=== PATIENT | male | born 1950 | race African-American/Black ===

== ENCOUNTER 2021-04-21 10:17 | Inpatient (IN) | payer MEDICARE, OTHER, SELFPAY ==
[2021-04-21] VITALS (10 sets, daily range): BP systolic 105–127; BP diastolic 53–65; PULSE 70–105; RESP 16–22; TEMP 35.8–37.3; O2SAT 91–100
--- NOTE | ~2021-04-21 | XR_ITS ---
EXAMINATION: XR abdomen/kub 1V DATE: 04/25/2021 14:59 INDICATION: Abdominal distention. TECHNIQUE: A supine view of the abdomen was obtained. COMPARISON: None. FINDINGS: There is gaseous distention of the colon. There are multiple dilated loops of small bowel. IMPRESSION: 1. Dilated small and large bowel, consistent with adynamic ileus versus distal obstruction. Reviewed, dictated and finalized at location A.
--- NOTE | ~2021-04-21 | XR_ITS ---
EXAMINATION: XR abdomen obstructive series DATE: 05/01/2021 06:07 INDICATION: Follow-up dilated small bowel. TECHNIQUE: Frontal supine and upright views of the abdomen were obtained. COMPARISON: CT dated 04/27/2021 and radiographs dated 04/30/2021 FINDINGS: Nasogastric tube tip in proximal side port in the body of the stomach. Midline skin thomas at the lo wer abdomen consistent with recent surgery. Free intraperitoneal which is best appreciated below the right hemidiaphragm with additional scattered Rigler's sign. There are dilated loops of bowel which a ppear primarily colonic and contains some residual oral contrast material which extends to the disten ded rectum. No definitive dilated loops of small bowel to suggest obstruction. Skin folds project ove r the bilateral lungs. Heart size is normal. IMPRESSION: 1. Residual free intraperitoneal gas which may be related to recent surgery. 2. Persistent gas and contrast distended colon which extends to the rectum consistent with ileus. Reviewed, dictated and finalized at location A. IMPRESSION: 1. Residual free intraperitoneal gas which may be related to recent surgery. 2. Persistent gas and contrast distended colon which extends to the rectum cons istent with ileus.
--- NOTE | ~2021-04-21 | XR_ITS ---
EXAMINATION: XR abdomen/kub 1V INDICATION: Dilated small bowel status post oversewing of perforated gastric ulcer on 04/27/2021 TECHNIQUE: Supine views of the abdomen were obtained on 2 radiographs. COMPARISON: KUB from today FINDINGS: Contrast from earlier upper GI is seen in the rectum. A persistently dilated loop of small bowel is noted in the right upper quadrant. No definite extravasation of contrast is identified altho ugh overlapping loops of bowel decreased sensitivity. There is persistent free intraperitoneal gas. T he nasogastric tube is in the stomach. IMPRESSION: 1. Contrast from earlier CT examination progressed to the rectum. 2. Persistently dilated small bowel loop in the right upper quadrant, likely adynamic ileus. Reviewed, dictated and finalized at location A. IMPRESSION: 1. Contrast from earlier CT examination progressed to the rectum. 2. Persistently dilated small bowel loop in the right upper quadrant, likely ad ynamic ileus.
--- NOTE | ~2021-04-21 | XR_ITS ---
EXAMINATION: XR UGI water soluble wo kub DATE: 04/30/2021 10:09 INDICATION: Assess for leak, status post oversewing of perforated gastric ulcer on 04/27/2021 TECHNIQUE: Water-soluble contrast material was injected through the indwelling nasogastric tube. Conv entional supine abdomen radiographs and fluoroscopy of the stomach and proximal small bowel were perf ormed. Fluoroscopy exposure time was 2.5 minutes. The DAP for this procedure was 19.344 Gycm2. COMPARISON: CT, 04/27/2021 FINDINGS: Preliminary images demonstrate free intraperitoneal gas. The hepatic flexure of colon is di stended. No hiatal hernia is identified. There was no definite evidence of contrast extravasation fro m the stomach. The stomach and proximal small bowel show normal folding patterns. IMPRESSION: 1. No evidence of contrast extravasation from the stomach. 2. Moderate volume of persistent pneumoperitoneum of unclear etiology, slightly greater than would be expected post surgery. 3. Dilated hepatic flexure of the colon which could reflect postoperative ileus. Reviewed, dictated and finalized at location A. IMPRESSION: 1. No evidence of contrast extravasation from the stomach. 2. Moderate volume of persistent pneumoperitoneum of unclear etiology, slightly greater than would be expected post surgery. 3. Dilated hepatic flexure of the colon which could reflect postoperative ileus .
--- NOTE | ~2021-04-21 | XR_ITS ---
EXAMINATION: XR chest 1V portable EXAM DATE: 04/25/2021 09:20 INDICATION: continued coarse lung sounds . COVID positive. TECHNIQUE: Portable AP frontal chest x-ray was obtained. Comparison is made to prior examination from . FINDINGS: Hyperinflation. There is air filled bowel below the diaphragm. Some scattered predominantly linear opacities mostly in the left lower lobe, atelectasis an/or pneumonia. Skin fold overlying the left hemithorax. No pneumothorax is suspected. There are no osseous abnormalities identified. IMPRESSION: 1. Small to moderate left, small right basilar opacities of atelectasis and pneumonia. 2. Air-filled bowel below the diaphragm; clinical correlation for distention or abdominal symptoms a nd if present consider KUB. Reviewed, dictated and finalized at location A. IMPRESSION: 1. Small to moderate left, small right basilar opacities of atelectasis and pn eumonia. 2. Air-filled bowel below the diaphragm; clinical correlation for distention o r abdominal symptoms and if present consider KUB.
--- NOTE | ~2021-04-21 | CT_ITS ---
EXAMINATION: CT abdomen pelvis wo con DATE: 04/25/2021 16:07 INDICATION: Abdominal distention TECHNIQUE: Computed tomography (CT) of the abdomen and pelvis was performed without intravenous contr ast. The dose-length product (DLP) was 188.73 mGy-cm. Automated exposure control and iterative recons truction technique were employed. COMPARISON: None FINDINGS: There is moderate to severe emphysema of the visualized lung bases. The heart size is tanna l. Within the limitations of noncontrast examination, the liver, spleen, and pancreas are normal. Sto yong are present in the nondistended gallbladder. There is mild enlargement of the adrenal glands whic h appear to maintain their adreniform shape. The kidneys are unremarkable. No pathologically enlarged abdominal or pelvic lymph nodes are identified. There is a large volume of stool in the rectum. A culver rgical anastomosis is also noted in the rectum. There is moderate to marked distention of the colon. A few dilated loops of small bowel are evident. There is no free intraperitoneal gas. The bladder is decompressed by Beckman catheter. There is severe lumbar spondylosis. IMPRESSION: 1. Fecal impaction with dilated left renal bowel with possible concomitant adynamic ileus. Reviewed, dictated and finalized at location B. IMPRESSION: 1. Fecal impaction with dilated left renal bowel with possible concomitant adyn amic ileus.
--- NOTE | ~2021-04-21 | XR_ITS ---
EXAMINATION: XR chest 1V portable DATE: 04/22/2021 15:07 INDICATION: Shortness of breath. TECHNIQUE: A single frontal view of the chest was obtained. COMPARISON: Chest single view 04/21/2021 FINDINGS: There are airspace and interstitial opacities in the lower lung zones and right perihilar r egion. No pleural effusion or pneumothorax. The heart size is normal. IMPRESSION: 1. Worsened airspace and interstitial opacities in the lower lung zones and right perihilar region, c onsistent with pulmonary edema and/or COVID-19 pneumonia. Reviewed, dictated and finalized at location A. IMPRESSION: 1. Worsened airspace and interstitial opacities in the lower lung zones and rig ht perihilar region, consistent with pulmonary edema and/or COVID-19 pneumonia.
--- NOTE | ~2021-04-21 | CT_ITS ---
EXAMINATION: CT abdomen pelvis wo con DATE: 04/27/2021 10:15 INDICATION: Abdominal pain and distention, concern for perforation TECHNIQUE: Computed tomography (CT) of the abdomen and pelvis was performed without intravenous contr ast. The dose-length product (DLP) was 225.49 mGy-cm. Automated exposure control and iterative recons truction technique were employed. COMPARISON: 04/25/2021 FINDINGS: Again noted is moderate to severe emphysema of the visualized lung bases. There is atelecta sis. The heart size is normal. There has been interval development of free intraperitoneal gas and as cites. The previously described fecal impaction has improved. Bowel distention has also improved. The liver, spleen, and pancreas are normal. Stones are present in the nondistended gallbladder. Again no shilpa is enlargement of the adrenal glands which maintain their adreniform shape. The kidneys are unrem arkable. No pathologically enlarged abdominal or pelvic lymph nodes are identified. A Beckman catheter is present in the urinary bladder. A small amount of gas in the urinary bladder is likely related to the catheter. A surgical anastomosis is again noted in the rectum. IMPRESSION: 1. Development of free intraperitoneal gas and ascites, consistent with bowel perforation. Patient is being evaluated by surgery. 2. Resolved fecal impaction and improving bowel distention. These findings were discussed with Dr. Loretta Marroquin MD at 1050 hours on 04/27/2021. Reviewed, dictated and finalized at location B. IMPRESSION: 1. Development of free intraperitoneal gas and ascites, consistent with bowel p erforation. Patient is being evaluated by surgery. 2. Resolved fecal impaction and improving bowel distention. These findings were discussed with Dr. Loretta Marroquin MD at 1050 hours on 04/27/2021.
--- NOTE | ~2021-04-21 | XR_ITS ---
XR abdomen/kub 1V 04/26/2021 18:20 Indication: KUB Procedure: KUB Comparison: CT and KUB dated 04/25/2021 Findings: Large amount of gas present throughout the small bowel and colon, consistent with ileus. No significant retained fecal material identified in the colon or rectum. No acute osseous abnormality. Moderate levoscoliosis. No acute osseous abnormality. Impression: 1: Adynamic ileus. No significant retained fecal material identified in the colon. Reviewed, dictated and finalized at location A. Impression: 1: Adynamic ileus. No significant retained fecal material identified in the col on.
--- NOTE | ~2021-04-21 | XR_ITS ---
EXAMINATION: XR chest 1V portable DATE: 04/21/2021 11:15 INDICATION: Puncture. COVID. Shortness of breath. TECHNIQUE: frontal view of the chest was obtained. COMPARISON: None FINDINGS: Mild airspace opacity in the bilateral lower lung zones. No pleural effusion or pneumothorax. The car diomediastinal silhouette is normal. Mild thoracolumbar dextrocurvature with mild spondylosis. There is also mild to moderate left glenohumeral osteoarthritis. IMPRESSION: 1. Mild opacities in bilateral lower lung zones which could represent pneumonia or atelectasis. Reviewed, dictated and finalized at location A.
--- NOTE | ~2021-04-21 | XR_ITS ---
XR abdomen NG/feed tube insert 04/26/2021 19:42 Indication: NG tube placement Procedure: Limited KUB Comparison: 04/26 and 04/25/2021 Findings: NG tube in the left upper abdomen, presumably in the stomach. Interval development of free intraperitoneal air in the upper abdomen, suspicious for bowel perforation. Bibasilar atelectasis. Impression: 1: Interval development of free air in the upper abdomen, suspicious for bowel perforation. Dr. Saul Romeo discussed with the patient's nurse on [facility], Sivan, at 04/26/2021 19:47 CDT. Reviewed, dictated and finalized at location A. Impression: 1: Interval development of free air in the upper abdomen, suspicious for bowel perforation. Dr. Saul Romeo discussed with the patient's nurse on [facility], Sivan, at 04/26/2021 19:47 CDT.
--- NOTE | 2021-04-21 10:32 | ECG_ITS ---
Measurements Intervals [place] Rate: 95 P: 87 RI: 149 QRS: -58 QRSD: 88 T: 78 QT: 369 QTc: 466 Interpretive Statements SINUS RHYTHM VENTRICULAR PREMATURE COMPLEX LEFT AXIS DEVIATION DELAYED PRECORDIAL R/S TRANSITION BORDERLINE ST-T WAVE ABNORMALITY- ANTEROLAT/HIGH LAT LEADS BASELINE ARTIFACT- I, II, III, AVR, AVF, V3-V6 BORDERLINE ECG Electronically Signed On 04-21-2021 17:14:25 CDT by Jeremy Badillo D.O.
[2021-04-21 11:08] LABS: Basophils Percent Auto 0.1 % (0.2-1.2); Hematocrit 49.5 % (42.0-52.0); Hemoglobin 15.8 g/dL (14.0-18.0); Immature Granulocyte Percent A 0.9 % (0-0.5); Lymphocytes Absolute Auto 0.98 K/mm3 (0.9-3.2); Lymphocytes Percent Auto 8.8 % (18.3-44.2); Mean Corpuscular HGB Conc 31.9 g/dl (32-36); Mean Corpuscular Hemoglobin 29.5 pg (26-34); Mean Corpuscular Volume 92.4 fl (80-100); Mean Platelet Volume 10.8 fl (7.4-10.4); Monocytes Absolute Auto 0.4 K/mm3 (0.1-0.6); Monocytes Percent Auto 3.9 % (2.6-8.5); Neutrophils Absolute Auto 9.6 K/mm3 (1.3-6.7); Neutrophils Percent Auto 86.3 % (45.5-73.1); Platelet Count Result 319 k/mm3 (150-375); Red Blood Count 5.36 M/mm3 (4.6-6.20); Red Cell Distribution Width 13.9 % (11.5-14.5); White Blood Count 11.1 K/mm3 (4.5-10.0)
[2021-04-21 11:17] LABS: Alanine Aminotransferase 37 U/L (4-50); Albumin Level 3.7 g/dL (3.5-5.1); Alkaline Phosphatase 103 U/L (38-126); Anion Gap 13 mmol/L (8-16); Aspartate Amino Transferase 30 U/L (17-59); Bilirubin,Total 1.4 mg/dL (0.2-1.3); Blood Urea Nitrogen 89 mg/dL (9-20); Calcium 9.1 mg/dL (8.4-10.2); Carbon Dioxide 22 mmol/L (22-30); Chloride 120 mmol/L (98-107); Estimated CRCL calculation 19 ml/min; Estimated Glomerular Filt Rate 28; Glucose 151 mg/dL (65-110); Potassium 3.5 mmol/L (3.4-5.0); Sodium 155 mmol/L (137-145)
[2021-04-21] MEDS: SODIUM CHLORIDE 0.9% IV 1,000 ML 999 ML IV CONT (11:37)
--- NOTE | 2021-04-21 12:30 | ED.GENADULT ---
HPI - General Adult General Chief complaint: Weakness Stated complaint: sob/weakness Time Seen by Provider: 04/21/21 10:24 History of Present Illness HPI narrative: Patient is a 70-year-old male who presents ER from his long-term due to weakness and increased oxygen requirement. Patient was admitted to [facility] on 04/13 after a 5-day stay at [facility] in [place] for COVID-19. He has been wearing oxygen since going to [place]. Patient is oriented x2 this time. Cannot provide a history. Very dry in appearance and chronically ill. Related Data Home Medications Medication Instructions Recorded Confirmed hydrochlorothiazide 25 mg PO DAILY 04/21/21 04/21/21 lisinopril 20 mg PO DAILY 04/21/21 04/21/21 megestrol 40 mg PO BID 04/21/21 04/21/21 oeuoohbzoxvz-asw-tylh-FA-vit K 1 tablet PO DAILY 04/21/21 04/21/21 [Adults Multivitamin] nicotine [Nicoderm CQ] 1 patch TRANSDERMAL DAILY PRN 04/21/21 04/21/21 ropinirole [Requip] 0.5 mg PO HS 04/21/21 04/21/21 Allergies Allergy/AdvReac Type Severity Reaction Status Date / Time No Known Allergies Allergy Verified 04/21/21 11:58 Review of Systems Review of Systems: ROS unobtainable: Yes unobtainable due to medical condition ON LICENSE OF [facility] Past Medical History Medical History (Updated 04/21/21 @ 18:08 by Finesse Limon MD) Arthritis Diverticulitis Hypertension Pre-diabetes Restless legs syndrome Surgical History Surgical History (Updated 04/21/21 @ 17:50 by Aracelis Thompson PA-C) History of partial colectomy Subtotal colectomy for what sounds like small-bowel obstruction due to adhesions. Family History Family History (Updated 04/21/21 @ 17:50 by Aracelis Thompson PA-C) Father Hypertension Diabetes mellitus Social History Social History (Updated 04/21/21 @ 17:52 by Aracelis Thompson PA-C) Social History: The patient lives in [place] with his daughter but is currently at a rehab facility. He retired from the [employer] after 23 years. He has smoked about 3 cigarettes a day for at least 40 years though he has not smoked since his recent hospitalization. Denies alcohol and illicit substance abuse. [id number]: Manjula Austin, daughter. Code status: Full code. Exam Narrative: GENERAL: Chronically ill-appearing, well-nourished, and in no acute distress. HEAD: Normocephalic, atraumatic. EYES: PERRL and EOMI. ENT: Dry mucous membranes. CHEST: Clear to auscultation. No respiratory distress. HEART: Regular rate and rhythm. Normal peripheral pulses. ABDOMEN: Soft, nontender, nondistended. EXTREMITIES: Normal range of motion. No edema. SKIN: Warm, dry, no rash. NEURO: Alert and oriented x2. Course Course Emergency Course: Patient appears very dry clinically and through his lab work. He will receive 1 L IV fluid bolus and then will be started on half-normal saline. Admit to the hospitalist service. Outside labs requested. Vital Signs Vital signs: Vital Signs Temperature 99.2 F 04/21/21 10:17 Pulse Rate 97 04/21/21 10:17 Respiratory Rate 20 04/21/21 10:17 Blood Pressure 107/55 L 04/21/21 10:17 Pulse Oximetry 91 04/21/21 10:17 Temperature 96.5 F L 04/21/21 15:58 Pulse Rate 92 04/21/21 15:58 Respiratory Rate 16 04/21/21 15:58 Blood Pressure 123/64 04/21/21 15:58 Pulse Oximetry 97 04/21/21 15:58 Medical Decision Making Vital Signs Vital Signs: Vital Signs Temperature 99.2 F 04/21/21 10:17 Pulse Rate 97 04/21/21 10:17 Respiratory Rate 20 04/21/21 10:17 Blood Pressure 107/55 L 04/21/21 10:17 Pulse Oximetry 91 04/21/21 10:17 Temperature 96.5 F L 04/21/21 15:58 Pulse Rate 92 04/21/21 15:58 Respiratory Rate 16 04/21/21 15:58 Blood Pressure 123/64 04/21/21 15:58 Pulse Oximetry 97 04/21/21 15:58 Lab Data Result diagrams: 04/21/21 11:02 04/21/21 11:02 Labs: Lab Results 04/21/21 04/21/21 Range/Units 11:02 11:02 WB
--- NOTE | 2021-04-21 12:41 | PC.NURSE ---
CALLED TIFFANY CHOW, UPDATES GIVEN. VERBAL READ BACK FOR CONSENT FOR REQUEST INFORMATION FROM [facility].
--- NOTE | 2021-04-21 13:35 | PM.IMHP ---
H&P: HPI History of Present Illness Date/Time: 04/21/21 13:35 Chief Complaint: Weakness. Narrative: This is a 70-year-old male with hypertension, pre diabetes, and restless leg syndrome who presented to the emergency department earlier today via EMS from a local rehabilitation facility for evaluation of generalized weakness. He is from [place] and typically gets his care at [facility] and in fact was hospitalized there from 04/08/2021 through 04/13/2021 with COVID. On discharge he was sent to [facility] in [place] for rehabilitation but unfortunately it sounds like he has gotten progressively more weak since being admitted there. It does not sound as though he has been eating or drinking very well and he is quite thin on exam though he tells me ?I have always been like that.? Ultimately it was decided to send the patient to the hospital this morning after his SpO2 was reportedly 88% on 4 L nasal cannula though it is unclear whether or not he has been on oxygen since discharge. Chest x-ray showed mild opacities in the bilateral lower lung zones at the time my evaluation his SpO2 is 97% on 4 L. Labs today are consistent with an acute kidney injury with a BUN and creatinine of 89 in 2.70 respectively, both levels were within normal limits on day of discharge from [facility] (33 and 1.09). A Beckman catheter is in place and contains approximately 400 cc of dark yellow urine. He has not noticed any significant change in urine output. He feels perhaps only mild shortness of breath and his only complaint is of being thirsty at this time. He denies fever, chills, sweats, headache, neck ache, cough, sinus congestion, rhinorrhea, otalgia, odynophagia, chest and pleuritic pain, palpitations, orthopnea, PND, lower extremity edema, nausea, vomiting, dysphagia, diarrhea, and dysuria. Review of Systems Review of Systems: Twelve systems were reviewed with pertinent positives and negatives as per HPI. Except as documented, all other systems were reviewed and are negative. [facility] Past Medical History Medical History Arthritis Diverticulitis Hypertension Pre-diabetes Restless legs syndrome Tobacco use Surgical History Surgical History (Updated 04/21/21 @ 17:50 by Aracelis Thompson PA-C) History of partial colectomy Subtotal colectomy for what sounds like small-bowel obstruction due to adhesions. Family History Family History (Updated 04/21/21 @ 17:50 by Aracelis Thompson PA-C) Father Hypertension Diabetes mellitus Social History Social History (Updated 04/21/21 @ 17:52 by Aracelis Thompson PA-C) Social History: The patient lives in [place] with his daughter but is currently at a rehab facility. He retired from the [employer] after 23 years. He has smoked about 3 cigarettes a day for at least 40 years though he has not smoked since his recent hospitalization. Denies alcohol and illicit substance abuse. [id number]: Manjula Austin, daughter. Code status: Full code. Meds Home Medications and Allergies Home Medications Medication Instructions Recorded Confirmed Type hydrochlorothiazide 25 mg PO DAILY 04/21/21 04/21/21 History lisinopril 20 mg PO DAILY 04/21/21 04/21/21 History megestrol 40 mg PO BID 04/21/21 04/21/21 History qotpjxszawgb-skw-apgh-FA-vit K 1 tablet PO DAILY 04/21/21 04/21/21 History [Adults Multivitamin] nicotine [Nicoderm CQ] 1 patch TRANSDERMAL DAILY PRN 04/21/21 04/21/21 History ropinirole [Requip] 0.5 mg PO HS 04/21/21 04/21/21 History Allergies Allergy/AdvReac Type Severity Reaction Status Date / Time No Known Allergies Allergy Verified 04/21/21 11:58 Vital Signs Vital Signs - 24 hr 04/21/21 10:17 04/21/21 12:02 04/21/21 12:33 Temperature 99.2 F Pulse Rate 97 70 84 Respiratory Rate 20 20 20 Blood Pressure 107/55 L 114/59 L 124/65 Pulse Oximetry 91 97 99 Exam Narrative: General: Thin elderly male supine in bed in no acute distress. Weight: 50.6 kg. BMI: 21.5. Speech
--- NOTE | 2021-04-21 15:06 | PC.NURSE ---
CALLED CLAUDINE ALLEN, UPDATES GIVEN
--- NOTE | 2021-04-21 15:25 | PC.NURSE ---
CALLED TO GIVE REPORT. STATES RN UNAVAILABLE AT THIS TIME AND WILL CALL BACK
[2021-04-21] MEDS: SODIUM CHLORIDE 0.45% 1,000 ML 100 ML IV CONT (17:57)
[2021-04-21 18:17] LABS: D Dimer 3.59 ug/mL (<0.48)
[2021-04-21 18:29] LABS: CRP 1.3 mg/dL (<1.0)
[2021-04-21 18:33] LABS: Anion Gap 12 mmol/L (8-16); Blood Urea Nitrogen 91 mg/dL (9-20); Calcium 9.1 mg/dL (8.4-10.2); Carbon Dioxide 23 mmol/L (22-30); Chloride 124 mmol/L (98-107); Estimated CRCL calculation 21 ml/min; Estimated Glomerular Filt Rate 32; Glucose 171 mg/dL (65-110); Potassium 3.7 mmol/L (3.4-5.0); Sodium 159 mmol/L (137-145)
[2021-04-21 18:36] LABS: NT Pro B Type Natriuretic Pept 722 pg/mL (5-100)
[2021-04-21 19:08] LABS: Procalcitonin 0.2 ng/mL
[2021-04-21] MEDS: rOPINIRole HCL 0.5 MG TABLET PO (22:54)
[2021-04-21] MEDS: DEXTROSE 5% 1,000 ML 1,000 ML 100 ML IV CONT (22:54)
[2021-04-22] VITALS (9 sets, daily range): BP systolic 97–134; BP diastolic 44–66; PULSE 69–100; RESP 16–22; TEMP 35.6–36.9; O2SAT 88–97
[2021-04-22 02:25] LABS: Sodium 158 mmol/L (137-145)
[2021-04-22 02:45] LABS: Magnesium 2.9 mg/dL (1.6-2.3)
--- NOTE | 2021-04-22 08:59 | PM.IMPN ---
Progress Note: A&P Assessment and Plan (1) Acute kidney injury: Code(s): N17.9 - Acute kidney failure, unspecified Status: Acute Assessment and Plan: Likely prerenal due to volume depletion/dehydration and possibly a component of ATN. Obtain urinalysis. Continue IV hydration. Creatinine already trending down. Strict I/Os (2) Hypernatremia: Code(s): E87.0 - Hyperosmolality and hypernatremia Status: Acute Assessment and Plan: Likely due to poor free water intake recently. Continue D5W, increased rate, monitor sodium levels. Check urine osmolality. (3) Dehydration: Code(s): E86.0 - Dehydration Status: Acute Assessment and Plan: Plan is as detailed above. (4) Generalized weakness: Code(s): R53.1 - Weakness Status: Acute Assessment and Plan: Secondary to a combination of dehydration, recent COVID infection (04/08 diagnosis), and deconditioning. Will need PT/OT when feeling better. Initiate fall precautions. (5) Hypoxia: Code(s): R09.02 - Hypoxemia Status: Acute Assessment and Plan: Currently on 4 L nasal cannula, he was not on oxygen at the rehab facility-I called and verified. Chest x-ray only shows mild opacities in the bilateral lower lungs. D-dimer was elevated. Monitor for now. (6) Opacities of both lungs present on chest x-ray: Code(s): R91.8 - Other nonspecific abnormal finding of lung field Status: Acute Assessment and Plan: Patient was recently hospitalized with COVID-19. Likely some residual changes. Given worsening hypoxemia and infiltrates, initiate remdesivir and dexamethasone. Bacterial pneumonia seems less likely at this time. Procalcitonin normal. CRP minimally elevated. However, consider antibiotics if his infiltrates continued to worsen. (7) Hypertension: Code(s): I10 - Essential (primary) hypertension Status: Acute Assessment and Plan: Blood pressures were reviewed and they were initially on the lower side of normal but have stabilized with IV fluid rehydration. Hold his hydrochlorothiazide and lisinopril for now given soft blood pressure (8) Tobacco use: Code(s): Z72.0 - Tobacco use Status: Acute Assessment and Plan: Patient typically smokes 3 cigarettes a day and has for 40+ years. He has not had a cigarette since his most recent hospitalization and he declines the need for nicotine patch. Smoking cessation is encouraged. Additional Plan Code status: Full code DVT prophylaxis: Enoxaparin Subjective Date/time seen: 04/22/21 08:59 No major events overnight. Remains on oxygen supplementation currently at 3 L by nasal cannula. Hemodynamically stable. Afebrile. Reports his breathing is somewhat improved. Review of Systems Review of Systems: All systems reviewed & are unremarkable except as noted in HPI and below Exam Narrative: Gen: Alert, NAD Abd: Soft, NT, ND Heart: RRR Lungs: CTAB Ext: No lower extremity edema Objective Data Vital Signs Vital Signs: Vital Signs - 24 hr 04/21/21 10:17 04/21/21 12:02 04/21/21 12:33 Temperature 99.2 F Pulse Rate 97 70 84 Respiratory Rate 20 20 20 Blood Pressure 107/55 L 114/59 L 124/65 Pulse Oximetry 91 97 99 04/21/21 13:33 04/21/21 14:04 04/21/21 14:59 Temperature Pulse Rate 88 92 94 Respiratory Rate 20 20 20 Blood Pressure 105/56 L 117/64 127/63 Pulse Oximetry 95 96 97 04/21/21 15:56 04/21/21 15:58 04/21/21 18:13 Temperature 96.5 F L Pulse Rate 98 92 Respiratory Rate 20 16 Blood Pressure 114/60 123/64 Pulse Oximetry 100 97 97 04/21/21 20:00 04/22/21 00:00 04/22/21 04:00 Temperature 97.2 F L 98.3 F 97.8 F Pulse Rate 105 H 80 95 Respiratory Rate 22 H 22 H 22 H Blood Pressure 109/53 L 122/63 107/46 L Pulse Oximetry 92 90 92 04/22/21 08:00 Temperature 96.1 F L Pulse Rate 97 Respiratory Rate 16 Blood Pressure 97/57 L Pulse O
[2021-04-22] MEDS: DEXTROSE 5% 1,000 ML 1,000 ML 100 ML IV CONT ×2 (09:06→18:15)
[2021-04-22 10:23] LABS: Basophils Percent Auto 0.1 % (0.2-1.2); Hematocrit 45.7 % (42.0-52.0); Hemoglobin 14.3 g/dL (14.0-18.0); Immature Granulocyte Absolute 0.07 K/mm3 (0.00-0.031); Immature Granulocyte Percent A 0.7 % (0-0.5); Lymphocytes Absolute Auto 0.96 K/mm3 (0.9-3.2); Lymphocytes Percent Auto 9.9 % (18.3-44.2); Mean Corpuscular HGB Conc 31.3 g/dl (32-36); Mean Corpuscular Hemoglobin 29.3 pg (26-34); Mean Corpuscular Volume 93.6 fl (80-100); Mean Platelet Volume 11.2 fl (7.4-10.4); Monocytes Absolute Auto 0.4 K/mm3 (0.1-0.6); Neutrophils Absolute Auto 8.2 K/mm3 (1.3-6.7); Neutrophils Percent Auto 85.3 % (45.5-73.1); Platelet Count Result 274 k/mm3 (150-375); Red Blood Count 4.88 M/mm3 (4.6-6.20); Red Cell Distribution Width 14.1 % (11.5-14.5); White Blood Count 9.7 K/mm3 (4.5-10.0)
[2021-04-22 10:35] LABS: Anion Gap 6 mmol/L (8-16); Blood Urea Nitrogen 75 mg/dL (9-20); Calcium 8.6 mg/dL (8.4-10.2); Carbon Dioxide 25 mmol/L (22-30); Chloride 122 mmol/L (98-107); Estimated CRCL calculation 33 ml/min; Estimated Glomerular Filt Rate 42; Glucose 184 mg/dL (65-110); Potassium 3.2 mmol/L (3.4-5.0); Sodium 153 mmol/L (137-145)
[2021-04-22 10:44] LABS: Add Urine Microscopic? YES; Appearance Urine Clear (Clear); Bilirubin Urine Negative (Negative); Blood Urine 3+ (Negative); Color Urine Yellow (Yellow); Glucose Urine UA Negative (Negative); Ketones Urine Negative (Negative); Leukocyte Esterase Ur Negative LEU/UL (Negative); Mucus Urine Rare /lpf; Nitrate Urine Negative (Negative); Protein Urine 1+ mg/dL (Negative); RBC Urine >75 /hpf (0-2); Specific Grav Ur 1.016 (1.001-1.035); Squamous Epithelial Cell Urine Rare /hpf (Few); Transitional Epi Cells Urine Rare /hpf (None Seen); Urobilinogen Urine Negative mg/dL (<2.0); WBC Urine 0-3 /hpf
[2021-04-22 11:00] LABS: Sodium Urine Random < 5 meq/L
[2021-04-22] MEDS: POTASSIUM CHLORIDE 20 MEQ TABLET PO (12:31)
[2021-04-22] MEDS: ENOXAPARIN 40 MG/0.4 ML SYRINGE SUB-Q (12:31)
--- NOTE | 2021-04-22 13:47 | PCPTNOTE ---
15 minutes attempt to evaluate pt. Pt sat up at bedside I but became SOB and lethargic. Pt had to lie down and was unable to do anything else. O2 sat at 75% on 3L, pulse at 56 then 35 and RN notified. Try eval tomorrow.
--- NOTE | 2021-04-22 13:48 | PCOTNOTE ---
Attempted OT evaluation this date; O2 states dropped to 72% while on 4L. RN notified and request to hold therapy this date. Will attempt again tomorrow as able.
[2021-04-22 18:34] LABS: Alanine Aminotransferase 34 U/L (4-50)
[2021-04-22 18:37] LABS: INR 1.8; Prothrombin Time 20.9 Seconds (11.1-14.7)
[2021-04-22 18:38] LABS: Sodium 153 mmol/L (137-145)
[2021-04-22] MEDS: REMDESIVIR 200 MG/NS 250 ML 200 MG/250 ML BAG 250 MG IVPB (20:30)
[2021-04-22] MEDS: rOPINIRole HCL 0.5 MG TABLET PO (20:31)
[2021-04-23] VITALS (14 sets, daily range): BP systolic 101–140; BP diastolic 50–78; PULSE 60–94; RESP 16–20; TEMP 35.7–36.6; O2SAT 86–100
[2021-04-23] MEDS: DEXTROSE 5% 1,000 ML 1,000 ML 200 ML IV CONT ×3 (04:28→16:47)
[2021-04-23 08:04] LABS: Alanine Aminotransferase 61 U/L (4-50); Anion Gap 9 mmol/L (8-16); Blood Urea Nitrogen 55 mg/dL (9-20); Calcium 8.1 mg/dL (8.4-10.2); Carbon Dioxide 20 mmol/L (22-30); Chloride 121 mmol/L (98-107); Estimated CRCL calculation 34 ml/min; Estimated Glomerular Filt Rate 60; Glucose 194 mg/dL (65-110); Potassium 3.4 mmol/L (3.4-5.0); Sodium 150 mmol/L (137-145)
[2021-04-23] MEDS: ENOXAPARIN 40 MG/0.4 ML SYRINGE SUB-Q (09:44)
--- NOTE | 2021-04-23 10:21 | PM.IMPN ---
Progress Note: A&P Assessment and Plan (1) Acute kidney injury: Code(s): N17.9 - Acute kidney failure, unspecified Status: Acute Assessment and Plan: Likely prerenal due to volume depletion/dehydration and possibly a component of ATN. Urine analysis with hematuria after Beckman, no wbc's. Should be recheck for hematuria in outpatient setting and workup as needed. Continue IV hydration. Creatinine trending down. Strict I/Os (2) Hypernatremia: Code(s): E87.0 - Hyperosmolality and hypernatremia Status: Acute Assessment and Plan: Likely due to poor free water intake recently. Continue D5W, monitor sodium levels. Check urine osmolality. (3) Dehydration: Code(s): E86.0 - Dehydration Status: Acute Assessment and Plan: Plan is as detailed above. (4) Generalized weakness: Code(s): R53.1 - Weakness Status: Acute Assessment and Plan: Secondary to a combination of dehydration, recent COVID infection (04/08 diagnosis), and deconditioning. Will need PT/OT when feeling better. Initiate fall precautions. (5) Hypoxia: Code(s): R09.02 - Hypoxemia Status: Acute Assessment and Plan: Currently on 2 L nasal cannula, he was not on oxygen at the rehab facility-I called and verified. Chest x-ray only shows mild opacities in the bilateral lower lungs. Continue to wean. (6) Opacities of both lungs present on chest x-ray: Code(s): R91.8 - Other nonspecific abnormal finding of lung field Status: Acute Assessment and Plan: Patient was recently hospitalized with COVID-19. Likely some residual changes. Given worsening hypoxemia and infiltrates, initiate remdesivir and dexamethasone. Bacterial pneumonia seems less likely at this time. Procalcitonin normal. CRP minimally elevated. However, consider antibiotics if his clinical status worsens. (7) Hypertension: Code(s): I10 - Essential (primary) hypertension Status: Acute Assessment and Plan: Blood pressures were reviewed and they were initially on the lower side of normal but have stabilized with IV fluid rehydration. Hold his hydrochlorothiazide and lisinopril for now given soft blood pressure, resume as needed. (8) Tobacco use: Code(s): Z72.0 - Tobacco use Status: Acute Assessment and Plan: Patient typically smokes 3 cigarettes a day and has for 40+ years. He has not had a cigarette since his most recent hospitalization and he declines the need for nicotine patch. Smoking cessation is encouraged. Subjective Date/time seen: 04/23/21 10:21 He feels more comfortable today. Feels his shortness of breath is improved. Overnight multiple PVCs in bigeminy on telemetry. Hemodynamically stable. Afebrile. Saturating well on 2 L by nasal cannula. Review of Systems Review of Systems: All systems reviewed & are unremarkable except as noted in HPI and below Exam Narrative: Gen: Alert, NAD, oxygen by nasal cannula Abd: Soft, NT, ND Heart: RRR Lungs: CTAB Ext: No lower extremity edema Objective Data Vital Signs Vital Signs: Vital Signs - 24 hr 04/22/21 12:00 04/22/21 15:34 04/22/21 16:00 Temperature 96.9 F L 96.3 F L Pulse Rate 100 88 Respiratory Rate 16 18 Blood Pressure 104/66 134/62 Pulse Oximetry 96 90 94 04/22/21 20:00 04/22/21 20:15 04/23/21 00:00 Temperature 98.4 F 97.3 F L Pulse Rate 71 60 Respiratory Rate 16 16 Blood Pressure 105/44 L 121/57 L Pulse Oximetry 88 L 97 95 04/23/21 04:00 04/23/21 06:45 04/23/21 08:00 Temperature 97.1 F L 96.2 F L Pulse Rate 76 85 Respiratory Rate 16 18 Blood Pressure 101/57 L 140/78 Pulse Oximetry 92 94 93 Intake/Output Intake/Output: Intake & Output 04/20/21 04/21/21 04/22/21 04/23/21 23:59 23:59 23:59 23:59 Intake Total 1250 2250 2260 Output Total 1525 550 Balance 0919 155 0561 Meds/Results Medications: Active Medications
[2021-04-23 10:23] LABS: INR 1.7
[2021-04-23 19:14] LABS: Anion Gap 7 mmol/L (8-16); Blood Urea Nitrogen 43 mg/dL (9-20); Calcium 8.2 mg/dL (8.4-10.2); Carbon Dioxide 19 mmol/L (22-30); Chloride 115 mmol/L (98-107); Estimated CRCL calculation 37 ml/min; Estimated Glomerular Filt Rate > 60; Glucose 169 mg/dL (65-110); Potassium 3.4 mmol/L (3.4-5.0); Sodium 141 mmol/L (137-145)
[2021-04-23] MEDS: rOPINIRole HCL 0.5 MG TABLET PO (21:25)
[2021-04-23] MEDS: REMDESIVIR 100 MG/NS 250 ML 100 MG/250 ML BAG 250 MG IVPB (21:25)
[2021-04-23] MEDS: DEXTROSE 5% 1,000 ML 1,000 ML 75 ML IV CONT (21:46)
[2021-04-24] VITALS (10 sets, daily range): BP systolic 100–114; BP diastolic 58–60; PULSE 59–106; RESP 16–20; TEMP 36.2–36.9; O2SAT 84–99; BMI 20.8
[2021-04-24 07:06] LABS: Alanine Aminotransferase 58 U/L (4-50); Anion Gap 6 mmol/L (8-16); Blood Urea Nitrogen 37 mg/dL (9-20); Carbon Dioxide 21 mmol/L (22-30); Chloride 114 mmol/L (98-107); Estimated CRCL calculation 40 ml/min; Estimated Glomerular Filt Rate > 60; Glucose 137 mg/dL (65-110); Potassium 3.4 mmol/L (3.4-5.0); Sodium 141 mmol/L (137-145)
[2021-04-24 07:10] LABS: INR 1.9; Prothrombin Time 21.1 Seconds (11.1-14.7)
[2021-04-24] MEDS: ENOXAPARIN 40 MG/0.4 ML SYRINGE SUB-Q (08:30)
--- NOTE | 2021-04-24 10:11 | P.CDI_ITS ---
CDI Query Clarification Request - Opacities of both lungs present on chest x-ray and Patient was recently hospitalized with COVID-19. Likely some residual changes. Given worsening hypoxemia and infiltrates, initiate remdesivir and dexamethasone -04/22 CXR impression: Worsened airspace and interstitial opacities in the lower lung zones and right perihilar region, consistent with pulmonary edema and/or COVID-19 pneumonia. -Pt on Remdesivir and Decadron Please clarify status of COVID 19: * Current/acute Covid 19 infection * Sequelae/ residual effect of Covid 19 * History of Covid 19 * Unable to determine <Zuleika Johnson RN - Last Filed: 04/24/21 10:17> Current/acute Covid 19 infection <Loretta Marroquin MD - Last Filed: 04/25/21 15:10>
--- NOTE | 2021-04-24 10:32 | PM.IMPN ---
Progress Note: A&P Assessment and Plan (1) Acute kidney injury: Code(s): N17.9 - Acute kidney failure, unspecified Status: Acute Assessment and Plan: Likely prerenal due to volume depletion/dehydration and possibly a component of ATN. Urine analysis with hematuria after Beckman, no wbc's. Should be recheck for hematuria in outpatient setting and workup as needed. Creatinine trending down, now normalizing, discontinue IV fluids, encourage p.o. hydration. Strict I/Os (2) Hypernatremia: Code(s): E87.0 - Hyperosmolality and hypernatremia Status: Acute Assessment and Plan: Likely due to poor free water intake recently. Continue D5W, monitor sodium levels. Check urine osmolality. (3) Dehydration: Code(s): E86.0 - Dehydration Status: Acute Assessment and Plan: Plan is as detailed above. (4) Generalized weakness: Code(s): R53.1 - Weakness Status: Acute Assessment and Plan: Secondary to a combination of dehydration, recent COVID infection (04/08 diagnosis), and deconditioning. Will need PT/OT when feeling better. Initiate fall precautions. (5) Hypoxia: Code(s): R09.02 - Hypoxemia Status: Acute Assessment and Plan: Acute hypoxemic respiratory failure. Was on oxygen by nasal cannula initially, now weaned off. Monitor off oxygen. (6) Pneumonia due to COVID-19 virus: Code(s): U07.1 - COVID-19; J12.82 - Pneumonia due to coronavirus disease 2019 Status: Acute Assessment and Plan: Pulmonary infiltrates consistent with COVID pneumonia. Given worsening hypoxemia and infiltrates, initiate remdesivir and dexamethasone. Bacterial pneumonia seems less likely at this time. Procalcitonin normal. CRP minimally elevated. However, consider antibiotics if his clinical status worsens. (7) Hypertension: Code(s): I10 - Essential (primary) hypertension Status: Acute Assessment and Plan: Blood pressures were reviewed and they were initially on the lower side of normal but have stabilized with IV fluid rehydration. Hold his hydrochlorothiazide and lisinopril for now given soft blood pressure, resume as needed. (8) Tobacco use: Code(s): Z72.0 - Tobacco use Status: Acute Assessment and Plan: Patient typically smokes 3 cigarettes a day and has for 40+ years. He has not had a cigarette since his most recent hospitalization and he declines the need for nicotine patch. Smoking cessation is encouraged. Subjective Date/time seen: 04/24/21 10:32 He was able to weaned off oxygen for the night, this morning has on. Saturating in the 90s. Hemodynamically stable. Reports his breathing is better. Review of Systems Review of Systems: All systems reviewed & are unremarkable except as noted in HPI and below Exam Narrative: Gen: Alert, NAD, oxygen by nasal cannula Abd: Soft, NT, ND Heart: RRR Lungs: CTAB Ext: No lower extremity edema Objective Data Vital Signs Vital Signs: Vital Signs - 24 hr 04/23/21 11:00 04/23/21 11:15 04/23/21 11:57 Temperature 96.9 F L Pulse Rate 88 Respiratory Rate 16 Blood Pressure 115/50 L Pulse Oximetry 100 97 92 04/23/21 12:00 04/23/21 14:30 04/23/21 14:35 Temperature Pulse Rate 76 Respiratory Rate Blood Pressure Pulse Oximetry 86 L 92 04/23/21 16:00 04/23/21 18:30 04/23/21 18:35 Temperature 97.7 F Pulse Rate 88 Respiratory Rate 16 Blood Pressure 115/51 L Pulse Oximetry 96 95 93 04/23/21 20:00 04/24/21 00:00 04/24/21 01:29 Temperature 97.8 F 98 F Pulse Rate 80 86 Respiratory Rate 20 20 Blood Pressure 118/58 L 108/58 L Pulse Oximetry 97 99 96 04/24/21 04:00 04/24/21 06:32 04/24/21 08:00 Temperature 98.4 F 98.0 F Pulse Rate 63 88 Respiratory Rate 20 16 Blood Pressure 114/60 107/59 L Pulse Oximetry 99 92 97 Intake/Output Intake/Output: Intake & Output 04/21/21 04/22/21 09/0
[2021-04-24] MEDS: REMDESIVIR 100 MG/NS 250 ML 100 MG/250 ML BAG 250 MG IVPB (21:12)
[2021-04-24] MEDS: rOPINIRole HCL 0.5 MG TABLET PO (21:12)
[2021-04-25] VITALS (11 sets, daily range): BP systolic 100–117; BP diastolic 48–66; PULSE 80–108; RESP 18–21; TEMP 35.8–36.6; O2SAT 88–98
[2021-04-25 07:08] LABS: INR 1.9; Prothrombin Time 21.6 Seconds (11.1-14.7)
[2021-04-25] MEDS: ENOXAPARIN 40 MG/0.4 ML SYRINGE SUB-Q (09:11)
[2021-04-25 09:20] LABS: Alanine Aminotransferase 73 U/L (4-50); Anion Gap 8 mmol/L (8-16); Blood Urea Nitrogen 47 mg/dL (9-20); Calcium 8.7 mg/dL (8.4-10.2); Carbon Dioxide 17 mmol/L (22-30); Chloride 119 mmol/L (98-107); Estimated CRCL calculation 33 ml/min; Estimated Glomerular Filt Rate 56; Glucose 124 mg/dL (65-110); Potassium 3.5 mmol/L (3.4-5.0); Sodium 144 mmol/L (137-145)
[2021-04-25 09:28] LABS: NT Pro B Type Natriuretic Pept 992 pg/mL (5-100)
--- NOTE | 2021-04-25 12:48 | PM.IMPN ---
Progress Note: A&P Assessment and Plan (1) Acute kidney injury: Code(s): N17.9 - Acute kidney failure, unspecified Status: Acute Assessment and Plan: Likely prerenal due to volume depletion/dehydration and possibly a component of ATN. Urine analysis with hematuria after Beckman, no wbc's. Should be recheck for hematuria in outpatient setting and workup as needed. Creatinine trending down, now normalizing, discontinue IV fluids, encourage p.o. hydration. Strict I/Os (2) Hypernatremia: Code(s): E87.0 - Hyperosmolality and hypernatremia Status: Acute Assessment and Plan: Likely due to poor free water intake recently. Continue D5W, monitor sodium levels. Check urine osmolality. (3) Dehydration: Code(s): E86.0 - Dehydration Status: Acute Assessment and Plan: Plan is as detailed above. (4) Generalized weakness: Code(s): R53.1 - Weakness Status: Acute Assessment and Plan: Secondary to a combination of dehydration, recent COVID infection (04/08 diagnosis), and deconditioning. Will need PT/OT when feeling better. Initiate fall precautions. (5) Hypoxia: Code(s): R09.02 - Hypoxemia Status: Acute Assessment and Plan: Acute hypoxemic respiratory failure. Persistent O2 need by O2. (6) Pneumonia due to COVID-19 virus: Code(s): U07.1 - COVID-19; J12.82 - Pneumonia due to coronavirus disease 2019 Status: Acute Assessment and Plan: Pulmonary infiltrates consistent with COVID pneumonia. Given worsening hypoxemia and infiltrates, initiate remdesivir and dexamethasone. Bacterial pneumonia seems less likely at this time. Procalcitonin normal. CRP minimally elevated. However, consider antibiotics if his clinical status worsens. (7) Hypertension: Code(s): I10 - Essential (primary) hypertension Status: Acute Assessment and Plan: Blood pressures were reviewed and they were initially on the lower side of normal but have stabilized with IV fluid rehydration. Hold his hydrochlorothiazide and lisinopril for now given soft blood pressure, resume as needed. (8) Tobacco use: Code(s): Z72.0 - Tobacco use Status: Acute Assessment and Plan: Patient typically smokes 3 cigarettes a day and has for 40+ years. He has not had a cigarette since his most recent hospitalization and he declines the need for nicotine patch. Smoking cessation is encouraged. (9) Adynamic ileus: Code(s): K56.0 - Paralytic ileus Status: Acute Assessment and Plan: CT evidence of stool impaction and possible adynamic ileus. Will attempt stool disimpaction with enemas today. His oral intake has been low. IVF. Additional Plan Code status: Full code DVT prophylaxis: Enoxaparin Subjective Date/time seen: 04/25/21 12:48 Stable overnight, on 1 L of oxygen by nasal cannula this morning. He does desaturate to the low 80s with minimal activity. Has been hemodynamically stable. He feels his breathing is improved. Review of Systems Review of Systems: All systems reviewed & are unremarkable except as noted in HPI and below Exam Narrative: Gen: Alert, NAD, oxygen by nasal cannula Abd: Soft, NT, ND Heart: RRR Lungs: CTAB Ext: No lower extremity edema Objective Data Vital Signs Vital Signs: Vital Signs - 24 hr 04/24/21 16:00 04/24/21 20:00 04/25/21 00:00 Temperature 97.1 F L 98.1 F 97.8 F Pulse Rate 106 H 102 H 89 Respiratory Rate 16 18 20 Blood Pressure 111/60 100/60 113/54 L Pulse Oximetry 98 93 96 04/25/21 02:29 04/25/21 04:00 04/25/21 07:01 Temperature 97.9 F Pulse Rate 80 Respiratory Rate 20 Blood Pressure 103/51 L Pulse Oximetry 95 94 88 L 04/25/21 07:03 04/25/21 08:00 Temperature 97.5 F L Pulse Rate 87 Respiratory Rate 21 H Blood Pressure 104/48 L Pulse Oximetry 93 95 Intake/Output Intake/Output: Intake & Output 04/22/21 04/23/21 09/0
[2021-04-25] MEDS: DEXTROSE 5% 1,000 ML 1,000 ML 100 ML IV CONT (16:47)
[2021-04-25] MEDS: LACTULOSE ENEMA 200 GM/1,000 ML ENEMA RECTAL (19:20)
[2021-04-25] MEDS: REMDESIVIR 100 MG/NS 250 ML 100 MG/250 ML BAG 250 MG IVPB (22:43)
[2021-04-25] MEDS: rOPINIRole HCL 0.5 MG TABLET PO (22:44)
[2021-04-25] MEDS: DOCUSATE SODIUM 400 MG/400 ML ENEMA RECTAL (22:45)
[2021-04-26] VITALS (9 sets, daily range): BP systolic 87–115; BP diastolic 56–90; PULSE 57–126; RESP 18–20; TEMP 36.2–36.8; O2SAT 98–100
[2021-04-26] MEDS: DEXTROSE 5% 1,000 ML 1,000 ML 100 ML IV CONT ×2 (03:08→15:01)
[2021-04-26 06:26] LABS: Osmolality, Urine 554 mOsm/kg (50-1200)
[2021-04-26 07:12] LABS: INR 1.8; Prothrombin Time 20.3 Seconds (11.1-14.7)
[2021-04-26 07:14] LABS: Alanine Aminotransferase 60 U/L (4-50); Anion Gap 7 mmol/L (8-16); Blood Urea Nitrogen 42 mg/dL (9-20); Calcium 8.4 mg/dL (8.4-10.2); Carbon Dioxide 19 mmol/L (22-30); Chloride 117 mmol/L (98-107); Estimated CRCL calculation 32 ml/min; Estimated Glomerular Filt Rate 56; Glucose 145 mg/dL (65-110); Potassium 3.6 mmol/L (3.4-5.0); Sodium 143 mmol/L (137-145)
[2021-04-26] MEDS: ENOXAPARIN 40 MG/0.4 ML SYRINGE SUB-Q (08:25)
[2021-04-26] MEDS: MEGESTROL ACETATE (*CHEMO) 40 MG TABLET PO ×2 (08:43→17:27)
--- NOTE | 2021-04-26 12:07 | PM.IMPN ---
Progress Note: A&P Assessment and Plan (1) Acute kidney injury: Code(s): N17.9 - Acute kidney failure, unspecified Status: Acute Assessment and Plan: Likely prerenal due to volume depletion/dehydration and possibly a component of ATN. Urine analysis with hematuria after Beckman, no wbc's. Should be recheck for hematuria in outpatient setting and workup as needed. Creatinine trending down, now normalizing, discontinue IV fluids, encourage p.o. hydration. Strict I/Os (2) Hypernatremia: Code(s): E87.0 - Hyperosmolality and hypernatremia Status: Acute Assessment and Plan: Likely due to poor free water intake recently. Continue D5W, monitor sodium levels. Check urine osmolality. (3) Dehydration: Code(s): E86.0 - Dehydration Status: Acute Assessment and Plan: Plan is as detailed above. (4) Generalized weakness: Code(s): R53.1 - Weakness Status: Acute Assessment and Plan: Secondary to a combination of dehydration, recent COVID infection (04/08 diagnosis), and deconditioning. Will need PT/OT when feeling better. Initiate fall precautions. (5) Hypoxia: Code(s): R09.02 - Hypoxemia Status: Acute Assessment and Plan: Acute hypoxemic respiratory failure. Persistent O2 need by O2. (6) Pneumonia due to COVID-19 virus: Code(s): U07.1 - COVID-19; J12.82 - Pneumonia due to coronavirus disease 2019 Status: Acute Assessment and Plan: Pulmonary infiltrates consistent with COVID pneumonia. Given worsening hypoxemia and infiltrates, initiate remdesivir and dexamethasone. Bacterial pneumonia seems less likely at this time. Procalcitonin normal. CRP minimally elevated. However, consider antibiotics if his clinical status worsens. (7) Hypertension: Code(s): I10 - Essential (primary) hypertension Status: Acute Assessment and Plan: Blood pressures were reviewed and they were initially on the lower side of normal but have stabilized with IV fluid rehydration. Hold his hydrochlorothiazide and lisinopril for now given soft blood pressure, resume as needed. (8) Tobacco use: Code(s): Z72.0 - Tobacco use Status: Acute Assessment and Plan: Patient typically smokes 3 cigarettes a day and has for 40+ years. He has not had a cigarette since his most recent hospitalization and he declines the need for nicotine patch. Smoking cessation is encouraged. (9) Adynamic ileus: Code(s): K56.0 - Paralytic ileus Status: Acute Assessment and Plan: CT evidence of stool impaction and possible adynamic ileus. Will attempt stool disimpaction with enemas. His oral intake has been low. IVF. Subjective Date/time seen: 04/26/21 12:07 Yesterday he developed adynamic ileus with abdominal distention. There was evidence of stool impaction on CT. He was given multiple enemas. this morning he feels about the same, denies any abdominal pain, his breathing is better. He is on room air. Hemodynamically stable. Review of Systems Review of Systems: All systems reviewed & are unremarkable except as noted in HPI and below Exam Narrative: Gen: Alert, NAD Abd: Soft, NT, mildly distended Heart: RRR Lungs: CTAB Ext: No lower extremity edema Objective Data Vital Signs Vital Signs: Vital Signs - 24 hr 04/25/21 14:00 04/25/21 16:00 04/25/21 20:00 Temperature 96.4 F L Pulse Rate 104 H 108 H 92 Respiratory Rate 20 18 Blood Pressure 100/56 L Pulse Oximetry 93 98 04/25/21 22:00 04/26/21 00:00 04/26/21 04:00 Temperature 97.5 F L Pulse Rate 92 75 90 Respiratory Rate 18 Blood Pressure 117/66 Pulse Oximetry 98 04/26/21 06:00 Temperature 98.1 F Pulse Rate 57 L Respiratory Rate 20 Blood Pressure 114/77 Pulse Oximetry 100 Intake/Output Intake/Output: Intake & Output 04/23/21 04/24/21 04/25/21 04/26/21 23:59 23:59 23:59 23:59 Intake Total 4570 120
--- NOTE | 2021-04-26 16:42 | PC.NURSE ---
On 04/26/21, the student, Ophelia Adames, provided care and completed [facility]. I have reviewed the student's documentation and agree with the findings.
[2021-04-26] MEDS: ONDANSETRON INJ 4 MG/2 ML VIAL IV PUSH (18:25)
[2021-04-26] MEDS: SODIUM CHLORIDE 0.9% IV 1,000 ML 100 ML IV CONT (21:23)
[2021-04-26] MEDS: rOPINIRole HCL 0.5 MG TABLET PO (21:25)
[2021-04-26] MEDS: REMDESIVIR 100 MG/NS 250 ML 100 MG/250 ML BAG 250 MG IVPB (21:41)
[2021-04-27] VITALS (17 sets, daily range): BP systolic 104–143; BP diastolic 34–77; PULSE 98–126; RESP 13–24; TEMP 36.2–37.7; O2SAT 94–100
[2021-04-27] MEDS: SODIUM CHLORIDE 0.45% 1,000 ML 100 ML IV CONT ×2 (09:00→18:55)
[2021-04-27] MEDS: ENOXAPARIN 40 MG/0.4 ML SYRINGE SUB-Q (09:01)
--- NOTE | 2021-04-27 09:48 | PCPTNOTE ---
RN advised to hold therapy today due to change in medical status. PT will continue to follow per plan of care when medically able.
--- NOTE | 2021-04-27 10:39 | PCOTNOTE ---
Physical Therapy attempted to see patient this am, however RN advised not to see due to medical status. Pt not seen for this reason.
--- NOTE | 2021-04-27 11:08 | PM.IMPN ---
Progress Note: A&P Assessment and Plan (1) Acute kidney injury: Code(s): N17.9 - Acute kidney failure, unspecified Status: Acute Assessment and Plan: Likely prerenal due to volume depletion/dehydration and possibly a component of ATN. Urine analysis with hematuria after Beckman, no wbc's. Should be recheck for hematuria in outpatient setting and workup as needed. Creatinine trending down, now normalizing, discontinue IV fluids, encourage p.o. hydration. Strict I/Os (2) Hypernatremia: Code(s): E87.0 - Hyperosmolality and hypernatremia Status: Acute Assessment and Plan: Likely due to poor free water intake recently. Continue D5W, monitor sodium levels. Check urine osmolality. (3) Dehydration: Code(s): E86.0 - Dehydration Status: Acute Assessment and Plan: Plan is as detailed above. (4) Generalized weakness: Code(s): R53.1 - Weakness Status: Acute Assessment and Plan: Secondary to a combination of dehydration, recent COVID infection (04/08 diagnosis), and deconditioning. Will need PT/OT when feeling better. Initiate fall precautions. (5) Hypoxia: Code(s): R09.02 - Hypoxemia Status: Acute Assessment and Plan: Acute hypoxemic respiratory failure. Persistent O2 need by O2. (6) Pneumonia due to COVID-19 virus: Code(s): U07.1 - COVID-19; J12.82 - Pneumonia due to coronavirus disease 2019 Status: Acute Assessment and Plan: Pulmonary infiltrates consistent with COVID pneumonia. Given worsening hypoxemia and infiltrates, initiate remdesivir and dexamethasone. Bacterial pneumonia seems less likely at this time. Procalcitonin normal. CRP minimally elevated. However, consider antibiotics if his clinical status worsens. (7) Hypertension: Code(s): I10 - Essential (primary) hypertension Status: Acute Assessment and Plan: Blood pressures were reviewed and they were initially on the lower side of normal but have stabilized with IV fluid rehydration. Hold his hydrochlorothiazide and lisinopril for now given soft blood pressure, resume as needed. (8) Tobacco use: Code(s): Z72.0 - Tobacco use Status: Acute Assessment and Plan: Patient typically smokes 3 cigarettes a day and has for 40+ years. He has not had a cigarette since his most recent hospitalization and he declines the need for nicotine patch. Smoking cessation is encouraged. (9) Adynamic ileus: Code(s): K56.0 - Paralytic ileus Status: Acute Assessment and Plan: Initial CT scan showed stool impaction an adynamic ileus. NG tube was placed on 04/26 for decompression. This had progressed on CT scan 04/27 with no evidence of perforation. Continue NG tube to suction. Zosyn initiated. Discussed with general surgery. Appreciate help. Subjective Date/time seen: 04/27/21 11:08 Yesterday he developed abdominal distention, NG tube was placed. Reports his abdominal pain is persistent but better. Hemodynamically stable. Afebrile. X-ray from last night shows free air with concern of perforation. His NG tube is on low intermittent suction. Exam Narrative: Gen: Alert, NAD Abd: Soft, NT, mildly distended Heart: RRR Lungs: CTAB Ext: No lower extremity edema Objective Data Vital Signs Vital Signs: Vital Signs - 24 hr 04/26/21 12:00 04/26/21 14:00 04/26/21 16:00 Temperature 97.1 F L Pulse Rate 112 H 66 126 H Respiratory Rate 18 Blood Pressure 115/90 Pulse Oximetry 98 04/26/21 20:00 04/26/21 22:00 04/27/21 00:00 Temperature 98.3 F Pulse Rate 113 H 113 H 107 H Respiratory Rate 20 20 Blood Pressure 87/56 L Pulse Oximetry 100 100 04/27/21 04:00 04/27/21 06:00 Temperature 98.6 F Pulse Rate 114 H 109 H Respiratory Rate 18 Blood Pressure 104/53 L Pulse Oximetry 97 Intake/Output Intake/Output: Intake & Output 04/24/21 04/25/21 04/26/21 04/27/21 23
--- NOTE | 2021-04-27 11:27 | PM.CNGS ---
Assessment and Plan Assessment and plan (1) Perforated viscus: Code(s): R19.8 - Other specified symptoms and signs involving the digestive system and abdomen Status: Acute Assessment and Plan: will need to go to OR for emergent exploration, IV abx, NPO History of Present Illness Consult details Consult date: 04/27/21 Reason for consult: abdominal pain Requesting physician: Loretta Marroquin MD Narrative: Pt is a 70 y/o M c multiple med issues presenting c weakness, altered MS. Pt was in [facility]CF recovering after episode of COVID. Upon admit, pt noted to have fecal impaction, ileus. Pt has had multiple enemas c some loose stools noted. Pt began to have increased pain, N/V yesterday and NG was placed. Imaging now c free air. Pt reports he actually feels a little better after NG was placed last night. Review of Systems Review of Systems: ROS unobtainable: Yes unobtainable due to medical condition and unobtainable due to mental status PMFSH Past Medical History Medical History Arthritis Diverticulitis Hypertension Pre-diabetes Restless legs syndrome Tobacco use Surgical History Surgical History History of partial colectomy Subtotal colectomy for what sounds like small-bowel obstruction due to adhesions. Family History Family History Father Hypertension Diabetes mellitus Social History Social History Social History: The patient lives in [place] with his daughter but is currently at a rehab facility. He retired from the [employer] after 23 years. He has smoked about 3 cigarettes a day for at least 40 years though he has not smoked since his recent hospitalization. Denies alcohol and illicit substance abuse. [id number]: Manjula Austin, daughter. Code status: Full code. Spiritual care concerns: No Meds Home Medications and Allergies Home Medications Medication Instructions Recorded Confirmed Type hydrochlorothiazide 25 mg PO DAILY 04/21/21 04/21/21 History lisinopril 20 mg PO DAILY 04/21/21 04/21/21 History megestrol 40 mg PO BID 04/21/21 04/21/21 History gucdldmbfoki-hdk-cyep-FA-vit K 1 tablet PO DAILY 04/21/21 04/21/21 History [Adults Multivitamin] nicotine [Nicoderm CQ] 1 patch TRANSDERMAL DAILY PRN 04/21/21 04/21/21 History ropinirole [Requip] 0.5 mg PO HS 04/21/21 04/21/21 History Allergies Allergy/AdvReac Type Severity Reaction Status Date / Time No Known Allergies Allergy Verified 04/21/21 11:58 Vital Signs Vital Signs - 24 hr 04/26/21 12:00 04/26/21 14:00 04/26/21 16:00 Temperature 36.2 C L Pulse Rate 112 H 66 126 H Respiratory Rate 18 Blood Pressure 115/90 Pulse Oximetry 98 04/26/21 20:00 04/26/21 22:00 04/27/21 00:00 Temperature 36.8 C Pulse Rate 113 H 113 H 107 H Respiratory Rate 20 20 Blood Pressure 87/56 L Pulse Oximetry 100 100 04/27/21 04:00 04/27/21 06:00 Temperature 37.0 C Pulse Rate 114 H 109 H Respiratory Rate 18 Blood Pressure 104/53 L Pulse Oximetry 97 Exam Const: General: cooperative, alert, awake, acute distress mild, ill appearing and tired appearing Nutritional Appearance: average body habitus Orientation/consciousness: oriented to person and oriented to place Limitations: altered mental status HENMT: Head: normal to inspection, normocephalic and atraumatic Ears: hearing grossly normal bilaterally General nose exam: Normal external nose present Face and sinus: normal facial exam Mouth: Yes Normal oral and palatal mucosa present and Yes moist mucous membranes Eyes: General: appearance normal, both eyes and all related structures Pupils: Equal, round and reactive pupils present EOM: EOMs intact bilaterally Neck: Neck: normal visual inspection, full ROM and no lymphadenopathy Chest: Chest palpation & inspection: normal inspec
--- NOTE | 2021-04-27 11:44 | PCNFU ---
Nutrition Follow-Up Complete: Inadequate oral intake related to decreased appetite as evidenced by patient reported weight lost of 14-23 pounds and average meal intake of 0% as well as refusing several meals. Goal: Patient to meet estimated nutritional needs. Patient is progressing towards goal. No new goal at this time. Pt current nutrition is NPO. OR for emergent exploration. Last recorded weight is 64.4 kg. Bowel Motility: + BM 04/25/2021 Labs Reviewed: GFR 56, BUN 42, Cr 1.5, Glu 145 Meds Noted: Albuterol, Lovenox, Atrovent neb, Megace, Requip Additional Notes: Patient has little to no oral intake consuming on average 5% of meals ordered prior to his NPO diet order. He is on Megace to stimulate his appetite. Ng tube was placed 04/26/2021 for decompression and patient reports feeling some relief since NG placement. Monitor patient's labs, medications, weight, and oral intake every 3 days.
--- NOTE | 2021-04-27 12:09 | PCWOUND ---
WOCN NOTE received order to ginger the left side of the abdomen for possible ostomy placement. Patient in preop. Patient put in sitting position and layed flat for marking. Patient unable to cough hard enough to have rectus muscle contraction. Marking placed in the best optimal placement.
--- NOTE | 2021-04-27 12:20 | WPDHPUPDATE1 ---
History and Physical Update Update Date/Time: 04/27/21 12:20 History and Physical has been reviewed, including an updated exam of the patient. There are changes in the patient's condition. patient now has free air and fluid within the abdomen on recent x-ray and CT scan. Please see the consultation from this morning by Dr. Lal for further details. Risks, benefits, and alternatives have been discussed and questions answered. Patient and the patient's daughter Manjula, who I called on the phone at approximately 11:20 a.m. today, agrees to proceed with procedure.
[2021-04-27] MEDS: LACTATED RINGERS 1,000 ML 30 ML IV CONT ×2 (12:28→15:07)
--- NOTE | 2021-04-27 13:07 | SUR.PREOP ---
1230- CALLED PT CLAUDINE ALLEN TO GET SURGICAL AND BLOOD CONSENT. ATTEMPTED TO GET NEW IV AND BLOOD WORK. ORNAMENTAL METALWORK DESIGNER STATED THEY CAN DRAW IN PACK AND GET ACCESS. PT HAS A 20 G PIV IN RT AC AND IT WAS LEAKING FROM THE FLOOR. STAT BLOOD WORK LABELS AND TUBES GIVEN TO behavior clinician TO GET DURING PROCEDURE.
[2021-04-27 13:30] LABS: Basophils Percent Auto 0.1 % (0.2-1.2); Hematocrit 39.9 % (42.0-52.0); Hemoglobin 13.6 g/dL (14.0-18.0); Immature Granulocyte Absolute 0.09 K/mm3 (0.00-0.031); Immature Granulocyte Percent A 0.5 % (0-0.5); Lymphocytes Percent Auto 4.9 % (18.3-44.2); Mean Corpuscular HGB Conc 34.1 g/dl (32-36); Mean Corpuscular Hemoglobin 29.5 pg (26-34); Mean Corpuscular Volume 86.6 fl (80-100); Mean Platelet Volume 12.5 fl (7.4-10.4); Monocytes Absolute Auto 0.4 K/mm3 (0.1-0.6); Monocytes Percent Auto 2.2 % (2.6-8.5); Neutrophils Absolute Auto 17.1 K/mm3 (1.3-6.7); Neutrophils Percent Auto 92.3 % (45.5-73.1); Platelet Count Result 215 k/mm3 (150-375); Red Blood Count 4.61 M/mm3 (4.6-6.20); Red Cell Distribution Width 14.1 % (11.5-14.5); White Blood Count 18.5 K/mm3 (4.5-10.0)
[2021-04-27 13:45] LABS: INR 3.4; Prothrombin Time 33.5 Seconds (11.1-14.7)
[2021-04-27 13:46] LABS: Partial Thromboplastin Time 46.2 SECONDS (22.3-36.8)
--- NOTE | 2021-04-27 14:15 | SUR.OPER ---
SEE LAB ORDERS OBTAINED PER RIGHT A LINE IN OR 13:22/SENT TO LAB STAT AND RECEIVED PER AURY. LAB CALLED AND [facility] WERE ON THERE WAY PER OR STAFF AALIYAH AT 13:24.
[2021-04-27 14:18] LABS: Anion Gap 5 mmol/L (8-16); Blood Urea Nitrogen 54 mg/dL (9-20); Calcium 7.6 mg/dL (8.4-10.2); Carbon Dioxide 22 mmol/L (22-30); Chloride 113 mmol/L (98-107); Estimated CRCL calculation 25 ml/min; Estimated Glomerular Filt Rate 38; Glucose 152 mg/dL (65-110); Sodium 140 mmol/L (137-145)
--- NOTE | 2021-04-27 14:20 | SUR.OPER ---
JACOBSON UNDER LEFT LEG UNDER PILLOW/BAG TO ANESTHESIA 350ML OF CLOUDY RIK U/A EMPTIED ON ARRIVAL 13:20 ANESTHESIA AWARE.
--- NOTE | 2021-04-27 14:45 | WPDANESACPN ---
Arterial Cath Proc Note Consent: I have discussed with the patient/family/POA, the non-emergent placement of an arterial catheter, including its clinical necessity/indication and associated potential risks and complications. The patient/family/POA and/or understand(s) and acknowledge(s) the need to proceed with the arterial catheter insertion as an important element of the patient's clinical management. Given emergent patient conditions, temporal constraints may have precluded informed consent. Time-Out: A pre-procedural Time-Out was completed immediately before starting the procedure and confirmed: Patient Identification, Site, Procedure, Patient Position and the Availability of Requisite Equipment. Procedure Note Problems: Suspected hypotension for exploratory lap Patient position: supine Insertion site: right radial Method of insertion: ultrasound-guided Counter Control Operator prep: sterile gloves, mask and hat Site prep: chlorahexadine Skin anesthesia: general anesthesia Gauge: 20 gauge Length (cm): 4.4 cm Closure/Dressing: antimicrobial disc and tegaderm Complications: None immediately noted/suspected.
--- NOTE | 2021-04-27 14:59 | SUR.OPER ---
urine 75ml EBL 10ml u/a color unchanged
--- NOTE | 2021-04-27 15:22 | SUR.OPER ---
Dr Cohen aware of all lab results drawn in OR and acknowledged elevated coag labs and other high values.
--- NOTE | 2021-04-27 16:48 | SUR.PHASEI ---
1640 - dr. hu aware of pt's u/o. no orders received
[2021-04-27 17:31] LABS: Hematocrit 42.3 % (42.0-52.0); Hemoglobin 14.6 g/dL (14.0-18.0); Mean Corpuscular HGB Conc 34.5 g/dl (32-36); Mean Corpuscular Hemoglobin 29.8 pg (26-34); Mean Corpuscular Volume 86.3 fl (80-100); Mean Platelet Volume 12.1 fl (7.4-10.4); Platelet Count Result 199 k/mm3 (150-375); White Blood Count 13.2 K/mm3 (4.5-10.0)
[2021-04-27 17:42] LABS: INR 3.3; Prothrombin Time 32.2 Seconds (11.1-14.7)
[2021-04-27 17:43] LABS: Partial Thromboplastin Time 43.9 SECONDS (22.3-36.8)
[2021-04-27 17:45] LABS: Alanine Aminotransferase 502 U/L (4-50); Albumin Level 2.5 g/dL (3.5-5.1); Alkaline Phosphatase 79 U/L (38-126); Anion Gap 6 mmol/L (8-16); Aspartate Amino Transferase 479 U/L (17-59); Bilirubin,Total 1.3 mg/dL (0.2-1.3); Blood Urea Nitrogen 52 mg/dL (9-20); Calcium 7.7 mg/dL (8.4-10.2); Carbon Dioxide 20 mmol/L (22-30); Chloride 114 mmol/L (98-107); Estimated CRCL calculation 26 ml/min; Estimated Glomerular Filt Rate 40; Glucose 165 mg/dL (65-110); Potassium 3.7 mmol/L (3.4-5.0); Sodium 140 mmol/L (137-145)
--- NOTE | 2021-04-27 18:09 | PC.NURSE ---
Received report from RAMIREZ Duarte. Patient arrived in room at 1705 without issue. A-line, jordan and right nare NG all intact. Labs drawn and sent.
[2021-04-27] MEDS: SUCRALFATE SUSP 100 MG/ML 10 ML UDC 1000 MG FEED TUBE (18:55)
[2021-04-27 19:58] LABS: INR 3.3; Partial Thromboplastin Time 43.2 SECONDS (22.3-36.8); Prothrombin Time 32.8 Seconds (11.1-14.7)
[2021-04-27] MEDS: PANTOPRAZOLE SODIUM IV 40 MG VIAL IV PUSH (20:27)
[2021-04-27] MEDS: MEGESTROL ACETATE (*CHEMO) 40 MG TABLET PO (20:28)
[2021-04-27] MEDS: FLUCONAZOLE 100 MG/NACL 50 ML 100 MG/50 ML BTL 50 MG IVPB (21:27)
--- NOTE | 2021-04-27 23:47 | W.PM.PROC2 ---
Procedure Note - Detailed Date of Procedure 04/27/21 Pre-op Diagnosis Pneumoperitoneum with suspected perforated hollow viscus. Post-op Diagnosis other (1. perforated gastric ulcer of the distal anterior body of the stomach 2. peritonitis secondary to gastric fluid leakage ) Procedure Performed 1. Over-sewing of perforated gastric ulcer of the distal anterior body of the stomach with application of Lobito type patch using a portion of falciform ligament 2. peritoneal washout with 3-4 L of by temperature normal saline 3. exploratory laparotomy Surgeon Chase Cohen MD Spare Hand Carding RAMIREZ Herrmann, OR 1st assist Anesthesia general Indications plain x-ray and CT scan of the abdomen pelvis showing free air and free fluid within the abdomen. Findings Upon entering the abdomen there was cloudy yellowish fluid without foul odor. Careful exploration revealed that the patient had had a subtotal colectomy and a distal ileal to rectal anastomosis. There is no sign of perforation in the area of the ileal rectal anastomosis or rectum. There was however a approximately 2-3 mm opening which was felt to be a perforated anterior distal gastric body ulcer. Description of Procedure I discussed the patient's CT findings with his daughter Manjula quevedo they then gave consent for exploratory laparotomy and surgical intervention for either a perforated bowel or stomach. She also knew that we may have to do a colostomy. The patient was subsequently brought to the operating room. [facility] anesthesia evaluated him and did a oral tracheal intubation. Following that ultrasound was used to obtain better IV access in his arm along with a left-sided to me right-sided art line. Following this the patient's abdomen was prepped and draped in usual sterile fashion. Should be mentioned that prior to going to surgery the patient was marked in the left upper quadrant of the abdomen as the site of ideal placement of a ostomy if needed. This was done by the [facility] ostomy nurse. Following this I made a vertical midline incision which was made starting slightly above his umbilicus coming around the left side of it along the scar from his previous surgery. His abdominal wall was found to be fairly thin. Bovie cautery was used for incision of the underlying fascia after making the skin incision. We carefully tented the abdominal wall up and I entered the peritoneum without injuring the bowel. A small hemostat was slid into place and then I lifted this and I was able to safely enlarge the incision until I could put my finger in it. I then used my finger to carefully protect the underlying structures and finish incising the fascia and peritoneum. We then extented this incision slightly more cephalad after finding that the perforation was of the anterior distal body of the stomach. The immediate exploration revealed a significant amount of cloudy yellow fluid. Approximately 8 cc of which was suctioned up into a syringe and then passed off the field and place in a sterile container for Gram stain, aerobic and anaerobic C&S. Following this exploration ensued and I first placed the patient in slight Trendelenburg position and explored in the pelvis. Several loops of small bowel were able to be pulled up and we followed what appeared to be small bowel right to the rectum. There was nothing obvious that was colon within the abdomen other than the rectum. There were no tubular structures that had tinea on them. I then started at the ileorectal anastomosis and worked my way back along somewhat distended small bowel which probably is what looked like colon on the CT scan. Bowel approximately 3 ft proximal to the ileo-rectal anastomosis began to become more normal caliber and more normal pinkish color. The more distal somewhat distended bowel was slightly purplishin color, but did not seem to have any signs of ischemia. We then followed this the small bowel until we could not follow it
[2021-04-28] VITALS (18 sets, daily range): BP systolic 105–142; BP diastolic 45–64; PULSE 52–114; RESP 12–19; TEMP 36.4–39.4; O2SAT 92–100
[2021-04-28] MEDS: SUCRALFATE SUSP 100 MG/ML 10 ML UDC 1000 MG FEED TUBE ×5 (00:03→23:23)
[2021-04-28] MEDS: SODIUM CHLORIDE 0.45% 1,000 ML 100 ML IV CONT (07:17)
[2021-04-28 08:20] LABS: Prealbumin 12.8 mg/dL (17.6-36.0)
[2021-04-28 08:26] LABS: Basophils Percent Auto 0.1 % (0.2-1.2); Hematocrit 37.6 % (42.0-52.0); Hemoglobin 12.8 g/dL (14.0-18.0); Immature Granulocyte Absolute 0.06 K/mm3 (0.00-0.031); Immature Granulocyte Percent A 0.4 % (0-0.5); Lymphocytes Absolute Auto 0.61 K/mm3 (0.9-3.2); Lymphocytes Percent Auto 4.4 % (18.3-44.2); Mean Corpuscular Volume 88.1 fl (80-100); Mean Platelet Volume 12.6 fl (7.4-10.4); Monocytes Absolute Auto 0.3 K/mm3 (0.1-0.6); Monocytes Percent Auto 1.8 % (2.6-8.5); Neutrophils Absolute Auto 12.9 K/mm3 (1.3-6.7); Neutrophils Percent Auto 93.3 % (45.5-73.1); Platelet Count Result 160 k/mm3 (150-375); Red Blood Count 4.27 M/mm3 (4.6-6.20); Red Cell Distribution Width 14.5 % (11.5-14.5); White Blood Count 13.9 K/mm3 (4.5-10.0)
[2021-04-28 08:27] LABS: Alanine Aminotransferase 348 U/L (4-50); Albumin Level 2.3 g/dL (3.5-5.1); Alkaline Phosphatase 73 U/L (38-126); Anion Gap 8 mmol/L (8-16); Aspartate Amino Transferase 171 U/L (17-59); Bilirubin,Total 1.1 mg/dL (0.2-1.3); Blood Urea Nitrogen 40 mg/dL (9-20); Calcium 7.4 mg/dL (8.4-10.2); Carbon Dioxide 20 mmol/L (22-30); Chloride 115 mmol/L (98-107); Estimated CRCL calculation 31 ml/min; Estimated Glomerular Filt Rate 56; Glucose 144 mg/dL (65-110); Potassium 3.4 mmol/L (3.4-5.0); Sodium 143 mmol/L (137-145)
[2021-04-28 08:38] LABS: INR 3.5; Prothrombin Time 33.7 Seconds (11.1-14.7)
[2021-04-28 08:39] LABS: Partial Thromboplastin Time 49.2 SECONDS (22.3-36.8)
[2021-04-28] MEDS: MEGESTROL ACETATE (*CHEMO) 40 MG TABLET PO ×2 (09:19→17:28)
[2021-04-28] MEDS: PANTOPRAZOLE SODIUM IV 40 MG VIAL IV PUSH ×2 (09:19→20:31)
--- NOTE | 2021-04-28 09:22 | WPDCNINT ---
Assessment and Plan Assessment and plan (1) Perforated gastric ulcer: Code(s): K25.5 - Chronic or unspecified gastric ulcer with perforation Status: Acute Assessment and Plan: Patient status post exploratory laparotomy yesterday Continue IV fluids NG tube in place NPO for now On empiric Zosyn and Diflucan Culture sent and pending IV PPI (2) Coagulopathy: Code(s): D68.9 - Coagulation defect, unspecified Status: Acute Assessment and Plan: Patient's PTT and INR elevated could be DIC versus chronic liver disease Discussed with Dr. Cohen Will transfuse 2 units of FFP and will also give vitamin K Monitor coags for now (3) Acute kidney injury: Code(s): N17.9 - Acute kidney failure, unspecified Status: Acute Assessment and Plan: Likely prerenal due to volume depletion/dehydration and possibly a component of ATN. Continue IV fluids Creatinine trending down CT abdomen pelvis did not show any hydronephrosis Beckman is in place for strict I&Os Monitor urine output and electrolytes along with creatinine (4) Hypernatremia: Code(s): E87.0 - Hyperosmolality and hypernatremia Status: Acute Assessment and Plan: Improving with hypotonic fluids (5) Hypoxia: Code(s): R09.02 - Hypoxemia Status: Acute Assessment and Plan: Likely secondary to atelectasis versus COVID-19 He is only on 1-2 L nasal cannula Add incentive spirometry and up in chair when possible His procalcitonin was normal but he is already on Zosyn for his abdominal sepsis which would cover for any pneumonia (6) Pneumonia due to COVID-19 virus: Code(s): U07.1 - COVID-19; J12.82 - Pneumonia due to coronavirus disease 2018 Status: Acute Assessment and Plan: Continue dexamethasone for 10 days Patient was not a candidate for remdesivir due to renal failure he is too far out of beginning of his infection and UA (7) Hypertension: Code(s): I10 - Essential (primary) hypertension Status: Acute Assessment and Plan: Monitor and treat as needed currently his blood pressure medications on hold and (8) Hyperglycemia: Code(s): R73.9 - Hyperglycemia, unspecified Status: Acute Assessment and Plan: Add sliding scale Additional Plan DVT prophylaxis -SCDs for now Stress ulcer prophylaxis -on PPI Nutrition -NPO Code Status - Full Code Criminal Psychologist Consult Note Consult date: 04/28/21 Time Seen: 08:00 HPI: Candelario Austin is a 70 year old male with hypertension, pre diabetes, and restless leg syndrome who presented to the emergency department on 04/21 via EMS from a local rehabilitation facility for evaluation of generalized weakness. He is from [place] and typically gets his care at [facility] and in fact was hospitalized there from 04/08/2021 through 04/13/2021 with COVID. On discharge he was sent to [facility] in [place] for rehabilitation but unfortunately it sounds like he has gotten progressively more weak since being admitted there. He had progressively gotten weaker and had poor p.o. intake at the [facility]. On presentation Chest x-ray showed mild opacities in the bilateral lower lung zones at the time my evaluation his SpO2 is 97% on 4 L. Labs today are consistent with an acute kidney injury with a BUN and creatinine of 89 in 2.70 respectively, both levels were within normal limits on day of discharge from [facility] (33 and 1.09). Patient was admitted with diagnosis of HAYES and COVID-19. He was started on steroids and given conservative amount of fluids. CT abdomen pelvis was done which showed stool impaction and possible adynamic ileus. Patient was given enemas and did had some stools. Patient later developed abdominal pain and imaging showed free air in general surgery is consulted. 04/27 Patient was taken to operating room for pneumoperitoneum and suspected perforated viscus and he underwent over-sewing of
--- NOTE | 2021-04-28 10:41 | PCOTNOTE ---
Attempted to see patient his AM for OT reassessment following surgery and move to ICU. Per RN, patient has an arterial line and will be receiving more blood today. RN recommends therapy to resume tomorrow. Will continue to follow and attempt.
[2021-04-28] MEDS: PHYTONADIONE INJ 10 MG/ML AMP SUB-Q (11:10)
[2021-04-28] MEDS: SODIUM BICARBONATE 8.4% 100 MEQ in WATER, STERILE FOR INJECTION 1,000 ML IV CONT (11:10)
[2021-04-28] MEDS: SODIUM CHLORIDE 0.9% IV 250 ML 30 ML IV CONT (11:11)
--- NOTE | 2021-04-28 11:17 | PCPTNOTE ---
Attempted to see patient his AM for PT reassessment following surgery and move to ICU. Per RN, patient has an arterial line and will be receiving more blood today. RN recommends therapy to resume tomorrow. Will attempt PT reassessment tomorrow.
[2021-04-28 11:54] LABS: Glucose Point of Care 119 mg/dl (65-105)
--- NOTE | 2021-04-28 13:09 | WPDANESPN ---
Anes - Prog Note Post-Op Date/Time: 04/28/21 13:09 Cardiovascular status: normal Respiratory status: normal Airway patency: baseline Mental status: baseline Post-Op hydration status: normal Vital Signs: Last Vital Signs Temp 36.5 C 04/28/21 12:45 Pulse 114 H 04/28/21 12:45 Resp 17 04/28/21 12:45 BP 125/54 L 04/28/21 12:45 Pulse Ox 98 04/28/21 12:45 Pain Score (VAS): no complaints I/O: Intake & Output 04/27/21 04/28/21 04/28/21 23:59 07:59 15:59 Intake Total 1300 1050 170 Output Total 20 450 Balance 1280 600 170 Laboratory Tests 04/28/21 07:55 04/28/21 07:55 04/27/21 04/27/21 04/27/21 12:25 13:03 13:03 WBC 18.5 H RBC 4.61 Hgb 13.6 L Hct 39.9 L MCV 86.6 D MCH 29.5 MCHC 34.1 RDW 14.1 Plt Count 215 MPV 12.5 H Immature Gran % (Auto) 0.5 Neut % (Auto) 92.3 H Lymph % (Auto) 4.9 L Ralls % (Auto) 2.2 L Eos % (Auto) 0.0 Baso % (Auto) 0.1 L Lymph # (Auto) 0.90 Ralls # (Auto) 0.4 Eos # (Auto) 0.0 Baso # (Auto) 0.0 Abs Immat Gran (auto) 0.09 H Absolute Neuts (auto) 17.1 H Absolute Nucleated RBC 0.0 Nucleated RBC % 0.0 PT INR APTT Sodium 140 Potassium 4.0 Chloride 113 H Carbon Dioxide 22 Anion Gap 5 L BUN 54 H D Creatinine 2.10 H Estim Creat Clear Calc 25 Estimated GFR 38 L Glucose 152 H POC Capillary Glucose Calcium 7.6 L Magnesium Total Bilirubin Direct Bilirubin AST ALT Alkaline Phosphatase Total Protein Albumin Prealbumin Blood Type O Negative Antibody Screen Negative 04/27/21 04/27/21 04/27/21 13:03 17:23 17:23 WBC 13.2 H RBC 4.90 Hgb 14.6 Hct 42.3 MCV 86.3 MCH 29.8 MCHC 34.5 RDW 14.0 Plt Count 199 MPV 12.1 H Immature Gran % (Auto) Neut % (Auto) Lymph % (Auto) Ralls % (Auto) Eos % (Auto) Baso % (Auto) Lymph # (Auto) Ralls # (Auto) Eos # (Auto) Baso # (Auto) Abs Immat Gran (auto) Absolute Neuts (auto) Absolute Nucleated RBC Nucleated RBC % PT 33.5 H D 32.2 H INR 3.4 3.3 APTT 46.2 H 43.9 H Sodium Potassium Chloride Carbon Dioxide Anion Gap BUN Creatinine Estim Creat Clear Calc Estimated GFR Glucose POC Capillary Glucose Calcium Magnesium Total Bilirubin Direct Bilirubin AST ALT Alkaline Phosphatase Total Protein Albumin Prealbumin Blood Type Antibody Screen 04/27/21 04/27/21 04/28/21 17:23 19:31 07:55 WBC RBC Hgb Hct MCV MCH MCHC RDW Plt Count MPV Immature Gran % (Auto) Neut % (Auto) Lymph % (Auto) Ralls % (Auto) Eos % (Auto) Baso % (Auto) Lymph # (Auto) Ralls # (Auto) Eos # (Auto) Baso # (Auto) Abs Immat Gran (auto) Absolute Neuts (auto) Absolute Nucleated RBC Nucleated RBC % PT 32.8 H INR 3.3 APTT 43.2 H Sodium 140 143 Potassium 3.7 3.4 Chloride 114 H 115 H Carbon Dioxide 20 L 20 L Anion Gap 6 L 8 BUN 52 H 40 H D Creatinine 2.00 H 1.50 H Estim Creat Clear Calc 26 31 Estimated GFR 40 L 56 L Glucose 165 H 144 H POC Capillary Glucose Calcium 7.7 L 7.4 L Magnesium 2.0 Total Bilirubin 1.3 1.1 Direct Bilirubin 0.0 AST 479 H 171 H ALT 502 H 348 H Alkaline Phosphatase 79 73 Total Protein 5.0 L 5.0 L Albumin 2.5 L 2.3 L Prealbumin 12.8 L Blood Type Antibody Screen 04/28/21 04/28/21 04/28/21 07:55 07:55 11:52 WBC 13.9 H RBC 4.27 L Hgb 12.8 L Hct 37.6 L MCV 88.1 MCH 30.0 MCHC 34.0 RDW 14.5 Plt Count 160 MPV 12.6 H Immature Gran % (Auto) 0.4 Neut % (Auto) 93.3 H Lymph % (Auto) 4.4 L Ralls % (Auto) 1.8 L Eos % (Auto) 0.0 Baso % (Auto) 0.1 L Lymph # (Auto) 0.61 L Ralls # (Auto) 0.3 Eos # (Auto) 0.0
--- NOTE | 2021-04-28 13:10 | PM.PNGS ---
Progress Note: A&P Assessment and Plan (1) Perforated gastric ulcer: Onset Date: ~04/27/21 Code(s): K25.5 - Chronic or unspecified gastric ulcer with perforation Status: Acute Assessment and Plan: Doing okay postop day 1. Not much out NG and tolerating super frayed down the tube. Still somewhat coagulopathic by lab testing but there are no signs of bleeding. Hemoglobin is actually slightly up from yesterday. BUN creatinine slightly improved. Overall patient making some progress. Will watch in ICU and leave art line in for least another day. Friday probably we will do a Gastrografin study down the NG tube to be sure there was no leakage from the distal stomach ulcer. Will then consider either tube feedings through the NG tube or pulling the NG tube and letting the patient eat. Dr. Negron postuates that the. Patient perhaps developed the ulcer related with use of steroids. (2) Adynamic ileus: Onset Date: Unknown Code(s): K56.0 - Paralytic ileus Status: Acute Assessment and Plan: This is somewhat expected after surgery by the patient did have that ahead of time this may have been caused by the inflammation related to the ulcer. (3) Pneumonia due to COVID-19 virus: Onset Date: ~03/2021 Code(s): U07.1 - COVID-19; J12.82 - Pneumonia due to coronavirus disease 2018 Status: Acute Assessment and Plan: Continues on steroids and I believe rim does appear has been stopped. Please see the chart and see strategies analyst/hospitalist note. (4) Acute kidney injury: Onset Date: Unknown Code(s): N17.9 - Acute kidney failure, unspecified Status: Acute Assessment and Plan: BUN and creatinine slightly improved today. Will recheck tomorrow. Continue with IV fluid rehydration and fluid status may be helped by the colloid provided by FFP that is needed because of his coagulopathy. (5) Hypertension: Onset Date: Unknown Code(s): I10 - Essential (primary) hypertension Status: Acute Assessment and Plan: P.r.n. meds per hospitalist. Will try to resume usual meds once NG is out. Additional Plan care discussed with Dr. Duque --- strategies analyst in view of elevated coags planning on giving 2 units of fresh frozen plasma today and rechecking these tomorrow. Time Spent With Patient Time with patient: less than 15 minutes Subjective Subjective Date/Time Seen: 04/28/21 13:10 Post Op day: 1 ( Status post exploratory laparotomy over-sewing of gastric ulcer) Patient reports: no new complaints Interval history: no flatus or bowel movement yet per patient's nurse. Patient denies much pain. Patient seems to be alert and shakes his head to answer questions verbalizes some but it is nonsensical. Review of Systems Review of Systems: ROS unobtainable: Yes unobtainable due to medical condition Exam Const: General: cooperative, no acute distress, alert and awake Orientation/consciousness: patient oriented x3 HENMT: Mouth: Yes moist mucous membranes Neck: Neck: normal visual inspection Chest: Chest palpation & inspection: normal inspection of the chest Resp: Effort & Inspection: normal respiratory effort Auscultation: clear to auscultation bilaterally Cardio: Jugular venous distension: no JVD Rate: regular rate Rhythm: regular rhythm GI: Inspection: incision ( Not inspected today dressing is clean and dry without through drainage.) GI Palp: Yes abdominal tenderness ( mild near midline) Auscultation: Hypoactive bowel sounds present Rectal Exam: deferred Extrem: General: normal exam except as noted Objective Data Vital Signs Vital Signs: Vital Signs - 24 hr 04/27/21 15:07 04/27/21 15:20 04/27/21 15:35 Temperature 36.2 C L Pulse Rate 111 H 102 H 102 H Respiratory Rate 24 H 18 18 Blood Pressure 117/40 L 120/49 L 112/54 L Pulse Oximetry 100 98 99 04/27/21 15:50 04/27/21 16:05 04/27/21 16:20 Temperature
--- NOTE | 2021-04-28 17:06 | PM.IMPN ---
Progress Note: A&P Assessment and Plan (1) Perforated gastric ulcer: Onset Date: ~04/27/21 Code(s): K25.5 - Chronic or unspecified gastric ulcer with perforation Status: Acute Assessment and Plan: s/p exploratory laparotomy 04/27/2021 Continue IV fluids NG tube in place NPO for now for general surgeon On empiric Zosyn and Diflucan Culture sent and pending IV PPI (2) Coagulopathy: Code(s): D68.9 - Coagulation defect, unspecified Status: Acute Assessment and Plan: Patient's PTT and INR elevated could be DIC versus chronic liver disease Plan to transfuse 2 units of FFP and vitamin K Monitor coagulation profile (3) Acute kidney injury: Code(s): N17.9 - Acute kidney failure, unspecified Status: Acute Assessment and Plan: Admission creatinine of 2.7, Likely prerenal due to volume depletion/dehydration and possibly a component of ATN. Continue IV fluids Creatinine trending down CT abdomen pelvis did not show any hydronephrosis Beckman is in place for strict I&Os Monitor urine output and electrolytes along with creatinine Diuretics hydrochlorothiazide and lisinopril on hold (4) Hypernatremia: Code(s): E87.0 - Hyperosmolality and hypernatremia Status: Acute Assessment and Plan: Improving with hypotonic fluids (5) Hypoxia: Code(s): R09.02 - Hypoxemia Status: Acute Assessment and Plan: Likely secondary to atelectasis versus COVID-19 He is only on 1-2 L nasal cannula Add incentive spirometry and up in chair when possible His procalcitonin was normal but he is already on Zosyn for his abdominal sepsis which would cover for any pneumonia (6) Pneumonia due to COVID-19 virus: Onset Date: ~03/2021 Code(s): U07.1 - COVID-19; J12.82 - Pneumonia due to coronavirus disease 2019 Status: Acute Assessment and Plan: Pulmonary infiltrates consistent with COVID pneumonia Patient was not candidate for remdesivir due to renal failure and also out of window next continue Decadron (7) Hypertension: Onset Date: Unknown Code(s): I10 - Essential (primary) hypertension Status: Acute Assessment and Plan: Monitor and treat as needed currently his blood pressure medications on hold and (8) Hyperglycemia: Code(s): R73.9 - Hyperglycemia, unspecified Status: Acute Assessment and Plan: Add sliding scale (9) Adynamic ileus: Onset Date: Unknown Code(s): K56.0 - Paralytic ileus Status: Acute (10) Hypernatremia: Code(s): E87.0 - Hyperosmolality and hypernatremia Status: Acute Assessment and Plan: This has resolved now Additional Plan DVT prophylaxis -SCDs for now Stress ulcer prophylaxis -on PPI Nutrition -NPO Code Status - Full Code Subjective Date/time seen: 04/28/21 17:06 Interval history: he is pod 1 for the perforation surgery. doign well. still npo. reports he is doign okay. ros could not be completed due to clinical condition. ng tube in place. he is getting ffp and vitamin k for his coagulopathy Review of Systems Review of Systems: ROS unobtainable: Yes unobtainable due to mental status Exam Narrative: General: Pt is old cachectic frail male who is awake and in NAD, ng ube in place Lungs/Chest: Trachea central Clear BS B/L, No crackles or wheezing. Cardiac: RRR. Normal S1 S2. No murmurs Circulation: Pedal pulses are intact and symmetrical. Abdomen: Decreased bowel sounds.. Soft. Mild diffuse tenderness palpation, no guarding or rigidity, dressing on surgical incision, NG tube in place Extremities: No clubbing, cyanosis or edema. Warm : Beckman in place Neurologic: Follows commands. Moves all 4 extremities PERRL alert and awake, minimally verbal, knows where he is at Skin: No Rash Objective Data Vital Signs Vital Signs: Vital Signs - 24 hr 04/27/21 19:08 04/27/21 20:00 04/27/21 22:00 Hollie
[2021-04-28 17:26] LABS: INR 1.8; Partial Thromboplastin Time 43.3 SECONDS (22.3-36.8); Prothrombin Time 20.4 Seconds (11.1-14.7)
[2021-04-28 17:46] LABS: Glucose Point of Care 106 mg/dl (65-105)
[2021-04-28 17:55] LABS: Fibrinogen 235 mg/dl (215-510)
--- NOTE | 2021-04-28 19:00 | PC.NURSE ---
Received from ICU/9 via bed.
--- NOTE | 2021-04-28 19:09 | PC.NURSE ---
This patient, Candelario Austin, was transferred to [facility] on 04/28/21 at 1900. Personal belongings sent with patient. Report given to Sheila GUZMÁN. Appropriate documentation sent with patient.
[2021-04-28] MEDS: FLUCONAZOLE 100 MG/NACL 50 ML 100 MG/50 ML BTL 50 MG IVPB (21:38)
[2021-04-29] VITALS (10 sets, daily range): BP systolic 108–123; BP diastolic 43–49; PULSE 58–109; RESP 16–18; TEMP 36.1–36.8; O2SAT 91–95
[2021-04-29] MEDS: SODIUM BICARBONATE 8.4% 100 MEQ in WATER, STERILE FOR INJECTION 1,000 ML IV CONT (00:16)
[2021-04-29 00:39] LABS: Glucose Point of Care 96 mg/dl (65-105)
[2021-04-29] MEDS: SUCRALFATE SUSP 100 MG/ML 10 ML UDC 1000 MG FEED TUBE ×4 (05:25→23:49)
[2021-04-29 05:58] LABS: INR 1.5; Prothrombin Time 17.9 Seconds (11.1-14.7)
[2021-04-29 06:19] LABS: Glucose Point of Care 92 mg/dl (65-105)
[2021-04-29 06:25] LABS: Hematocrit 28.5 % (42.0-52.0); Hemoglobin 9.7 g/dL (14.0-18.0); Immature Granulocyte Absolute 0.03 K/mm3 (0.00-0.031); Immature Granulocyte Percent A 0.4 % (0-0.5); Lymphocytes Absolute Auto 0.52 K/mm3 (0.9-3.2); Mean Corpuscular Hemoglobin 29.8 pg (26-34); Mean Corpuscular Volume 87.4 fl (80-100); Monocytes Absolute Auto 0.1 K/mm3 (0.1-0.6); Monocytes Percent Auto 1.8 % (2.6-8.5); Neutrophils Absolute Auto 6.7 K/mm3 (1.3-6.7); Neutrophils Percent Auto 90.8 % (45.5-73.1); Platelet Count Result 126 k/mm3 (150-375); Red Blood Count 3.26 M/mm3 (4.6-6.20); Red Cell Distribution Width 13.9 % (11.5-14.5); White Blood Count 7.4 K/mm3 (4.5-10.0)
[2021-04-29 06:40] LABS: Alanine Aminotransferase 227 U/L (4-50); Albumin Level 2.3 g/dL (3.5-5.1); Alkaline Phosphatase 78 U/L (38-126); Anion Gap 5 mmol/L (8-16); Aspartate Amino Transferase 96 U/L (17-59); Bilirubin,Total 1.4 mg/dL (0.2-1.3); Blood Urea Nitrogen 33 mg/dL (9-20); Calcium 7.3 mg/dL (8.4-10.2); Carbon Dioxide 30 mmol/L (22-30); Chloride 109 mmol/L (98-107); Estimated CRCL calculation 39 ml/min; Estimated Glomerular Filt Rate > 60; Glucose 94 mg/dL (65-110); Magnesium 2.2 mg/dL (1.6-2.3); Potassium 3.1 mmol/L (3.4-5.0); Sodium 144 mmol/L (137-145)
[2021-04-29] MEDS: PANTOPRAZOLE SODIUM IV 40 MG VIAL IV PUSH ×2 (08:58→21:23)
[2021-04-29] MEDS: MEGESTROL ACETATE (*CHEMO) 40 MG TABLET PO ×2 (08:59→17:52)
--- NOTE | 2021-04-29 10:01 | PM.IMPN ---
Progress Note: A&P Assessment and Plan (1) Perforated gastric ulcer: Onset Date: ~04/27/21 Code(s): K25.5 - Chronic or unspecified gastric ulcer with perforation Status: Acute Assessment and Plan: s/p exploratory laparotomy 04/27/2021 and finding gastric ulcer perforation Continue IV fluids NG tube in place NPO for now for general surgeon On empiric Zosyn and Diflucan Culture sent and pending IV PPI (2) Coagulopathy: Code(s): D68.9 - Coagulation defect, unspecified Status: Acute Assessment and Plan: Patient's PTT and INR elevated could be DIC versus chronic liver disease Plan to transfuse 2 units of FFP and vitamin K Monitor coagulation profile Coagulopathy improved with FFP and vitamin K could be from vitamin K deficiency due to poor p.o. intake DIC panel with normal fibrinogen level suggesting DIC unlikely (3) Acute kidney injury: Code(s): N17.9 - Acute kidney failure, unspecified Status: Acute Assessment and Plan: Admission creatinine of 2.7, Likely prerenal due to volume depletion/dehydration and possibly a component of ATN. Continue IV fluids Creatinine trending down CT abdomen pelvis did not show any hydronephrosis Beckman is in place for strict I&Os Monitor urine output and electrolytes along with creatinine Diuretics hydrochlorothiazide and lisinopril on hold Renal function continues to improve (4) Hypernatremia: Code(s): E87.0 - Hyperosmolality and hypernatremia Status: Acute Assessment and Plan: Improving with hypotonic fluids This has resolved (5) Hypoxia: Code(s): R09.02 - Hypoxemia Status: Acute Assessment and Plan: Likely secondary to atelectasis versus COVID-19 Add incentive spirometry and up in chair when possible His procalcitonin was normal but he is already on Zosyn for his abdominal sepsis which would cover for any pneumonia He is on room air currently Off isolation for COVID (6) Pneumonia due to COVID-19 virus: Onset Date: ~03/2021 Code(s): U07.1 - COVID-19; J12.82 - Pneumonia due to coronavirus disease 2019 Status: Acute Assessment and Plan: Pulmonary infiltrates consistent with COVID pneumonia Patient was not candidate for remdesivir due to renal failure and also out of window next continue Decadron (7) Hypertension: Onset Date: Unknown Code(s): I10 - Essential (primary) hypertension Status: Acute Assessment and Plan: Monitor and treat as needed currently his blood pressure medications on hold and (8) Hyperglycemia: Code(s): R73.9 - Hyperglycemia, unspecified Status: Acute Assessment and Plan: Add sliding scale (9) Adynamic ileus: Onset Date: Unknown Code(s): K56.0 - Paralytic ileus Status: Acute Additional Plan DVT prophylaxis -SCDs for now Stress ulcer prophylaxis -on PPI Nutrition -NPO Code Status - Full Code Subjective Date/time seen: 04/29/21 10:01 Interval history: No overnight event. NG to suction remains continues NPO no bowel movement or passes of flatus reported by the patient or the nursing staff. Not CS and no other questions reports no issues Review of Systems Review of Systems: All systems reviewed & are unremarkable except as noted in HPI and below Exam Narrative: General: Pt is old cachectic frail male who is awake and in NAD, ng tube in place Lungs/Chest: Trachea central Clear BS B/L, No crackles or wheezing. Cardiac: RRR. Normal S1 S2. No murmurs Circulation: Pedal pulses are intact and symmetrical. Abdomen: Decreased bowel sounds.. Soft. Mild diffuse tenderness palpation, no guarding or rigidity, dressing on surgical incision, NG tube in place Extremities: No clubbing, cyanosis or edema. Warm : Beckman in place Neurologic: Follows commands. Moves all 4 extremities PERRL alert and awake, minimally verbal, knows where he is at Skin: No Rash O
--- NOTE | 2021-04-29 10:34 | PM.PNGS ---
Progress Note: A&P Assessment and Plan (1) Perforated gastric ulcer: Onset Date: ~04/27/21 Code(s): K25.5 - Chronic or unspecified gastric ulcer with perforation Status: Acute Assessment and Plan: Doing okay postop day 2. Not much out NG and tolerating sucrulfate down the tube. Still somewhat coagulopathic by lab testing but there are no signs of bleeding. No obvious source of bleeding therefore will repeat H&H at noon to see if lab error explains the significant decrease in hemoglobin. BUN creatinine slightly improved. Overall patient making some progress. Moved out of ICU last night and art line removed at that time. Now receiving some Na+ bicarb by one of his IVs. He has not had nutrition for some time therefore, will start peripheral Clinimix until we can allow him to begin oral nutrition. Will plan for a Gastrografin study down the NG tube tomorrow and if no leak consider tube feedings through the NG or removing NG with bedside swallow and then advancing to clear liquids for nutrition. Friday probably we will do a Gastrografin study down the NG tube to be sure there was no leakage from the distal stomach ulcer. Will then consider either tube feedings through the NG tube or pulling the NG tube and letting the patient eat. Dr. Negron postuates that the patient perhaps developed the ulcer related with use of steroids. (2) Adynamic ileus: Onset Date: Unknown Code(s): K56.0 - Paralytic ileus Status: Acute Assessment and Plan: This is somewhat expected after surgery but the patient did have that ahead of time and it may have been caused by the inflammation related to the ulcer. Patient has normal bowel sounds today. (3) Pneumonia due to COVID-19 virus: Onset Date: ~03/2021 Code(s): U07.1 - COVID-19; J12.82 - Pneumonia due to coronavirus disease 2019 Status: Acute Assessment and Plan: Continues on steroids. Please see the chart and see hospitalist note. (4) Acute kidney injury: Onset Date: Unknown Code(s): N17.9 - Acute kidney failure, unspecified Status: Acute Assessment and Plan: BUN and creatinine slightly improved today. Will recheck tomorrow. Continue with IV fluid rehydration and fluid status may be helped by the colloid provided by FFP that is needed because of his coagulopathy. (5) Hypertension: Onset Date: Unknown Code(s): I10 - Essential (primary) hypertension Status: Acute Assessment and Plan: P.r.n. meds per hospitalist. Will try to resume usual meds once NG is out. Additional Plan Dulcolax suppository later today. Start peripheral nutrition today Increase activity and out of bed with PT. Subjective Subjective Date/Time Seen: 04/29/21 10:34 Post Op day: 2 ( Improving postop day # 2) Patient reports: no new complaints Interval history: He seems to be more alert. He does try to answer some questions. States he does have some abdominal pain. Nurse reports no bowel movements. No obvious source of bleeding per nurse. Review of Systems Review of Systems: ROS unobtainable: Yes unobtainable due to medical condition and unobtainable due to mental status Exam Const: General: cooperative, no acute distress, alert, awake, acute distress mild, ill appearing and tired appearing Nutritional Appearance: average body habitus Orientation/consciousness: oriented to person, oriented to place and patient oriented x3 Limitations: altered mental status HENMT: Head: normal to inspection, normocephalic and atraumatic Ears: hearing grossly normal bilaterally General nose exam: Normal external nose present Face and sinus: normal facial exam Mouth: Yes Normal oral and palatal mucosa present and Yes moist mucous membranes Eyes: General: appearance normal, both eyes and all related structures Pupils: Equal, round and reactive pupils present EOM: EOMs intact bilaterally Neck:
[2021-04-29 11:46] LABS: Hematocrit 28.3 % (42.0-52.0); Hemoglobin 9.5 g/dL (14.0-18.0); Immature Granulocyte Absolute 0.05 K/mm3 (0.00-0.031); Immature Granulocyte Percent A 0.7 % (0-0.5); Lymphocytes Absolute Auto 0.24 K/mm3 (0.9-3.2); Lymphocytes Percent Auto 3.4 % (18.3-44.2); Mean Corpuscular HGB Conc 33.6 g/dl (32-36); Mean Corpuscular Hemoglobin 30.3 pg (26-34); Mean Corpuscular Volume 90.1 fl (80-100); Monocytes Absolute Auto 0.1 K/mm3 (0.1-0.6); Monocytes Percent Auto 1.4 % (2.6-8.5); Neutrophils Absolute Auto 6.6 K/mm3 (1.3-6.7); Neutrophils Percent Auto 94.5 % (45.5-73.1); Platelet Count Result 118 k/mm3 (150-375); Red Blood Count 3.14 M/mm3 (4.6-6.20); Red Cell Distribution Width 14.2 % (11.5-14.5)
[2021-04-29 12:03] LABS: Alanine Aminotransferase 214 U/L (4-50); Albumin Level 2.3 g/dL (3.5-5.1); Alkaline Phosphatase 82 U/L (38-126); Anion Gap 5 mmol/L (8-16); Aspartate Amino Transferase 96 U/L (17-59); Bilirubin,Total 1.5 mg/dL (0.2-1.3); Blood Urea Nitrogen 30 mg/dL (9-20); Calcium 7.2 mg/dL (8.4-10.2); Carbon Dioxide 30 mmol/L (22-30); Chloride 107 mmol/L (98-107); Estimated CRCL calculation 46 ml/min; Estimated Glomerular Filt Rate > 60; Glucose 137 mg/dL (65-110); Magnesium 2.1 mg/dL (1.6-2.3); Potassium 3.5 mmol/L (3.4-5.0); Sodium 142 mmol/L (137-145)
[2021-04-29 12:06] LABS: Glucose Point of Care 142 mg/dl (65-105)
[2021-04-29 12:10] LABS: Transferrin 87 mg/dL (206-381)
[2021-04-29] MEDS: FAT EMULSIONS IV 20% 250 ML 20.83 ML IVPB (13:19)
[2021-04-29] MEDS: AMINO ACIDS 4.25%/D5W/LYTES/CA 2,000 ML 80 ML IV CONT (13:19)
[2021-04-29 17:52] LABS: Glucose Point of Care 156 mg/dl (65-105)
[2021-04-29] MEDS: FLUCONAZOLE 100 MG/NACL 50 ML 100 MG/50 ML BTL 50 MG IVPB (21:22)
[2021-04-29] MEDS: BISACODYL 10 MG SUPPOSITORY RECTAL (21:22)
[2021-04-30] VITALS (8 sets, daily range): BP systolic 122–132; BP diastolic 51–60; PULSE 67–97; RESP 16–18; TEMP 36.6–37.3; O2SAT 90–100
[2021-04-30 00:45] LABS: Glucose Point of Care 166 mg/dl (65-105)
[2021-04-30] MEDS: SUCRALFATE SUSP 100 MG/ML 10 ML UDC 1000 MG FEED TUBE ×3 (05:25→16:47)
[2021-04-30 06:04] LABS: Alanine Aminotransferase 176 U/L (4-50); Albumin Level 2.2 g/dL (3.5-5.1); Alkaline Phosphatase 79 U/L (38-126); Anion Gap 5 mmol/L (8-16); Aspartate Amino Transferase 71 U/L (17-59); Bilirubin,Total 0.9 mg/dL (0.2-1.3); Blood Urea Nitrogen 28 mg/dL (9-20); Calcium 7.5 mg/dL (8.4-10.2); Carbon Dioxide 29 mmol/L (22-30); Chloride 107 mmol/L (98-107); Estimated CRCL calculation 50 ml/min; Estimated Glomerular Filt Rate > 60; Glucose 161 mg/dL (65-110); Magnesium 2.2 mg/dL (1.6-2.3); Potassium 3.4 mmol/L (3.4-5.0); Sodium 141 mmol/L (137-145)
[2021-04-30 06:09] LABS: INR 1.2
[2021-04-30 06:10] LABS: Partial Thromboplastin Time 32.7 SECONDS (22.3-36.8)
[2021-04-30 06:11] LABS: Transferrin 84 mg/dL (206-381)
[2021-04-30 06:25] LABS: Glucose Point of Care 142 mg/dl (65-105)
[2021-04-30 06:38] LABS: Hematocrit 25.9 % (42.0-52.0); Hemoglobin 8.7 g/dL (14.0-18.0); Immature Granulocyte Absolute 0.04 K/mm3 (0.00-0.031); Immature Granulocyte Percent A 0.6 % (0-0.5); Lymphocytes Absolute Auto 0.38 K/mm3 (0.9-3.2); Lymphocytes Percent Auto 6.1 % (18.3-44.2); Mean Corpuscular HGB Conc 33.6 g/dl (32-36); Mean Corpuscular Hemoglobin 29.8 pg (26-34); Mean Corpuscular Volume 88.7 fl (80-100); Mean Platelet Volume 12.8 fl (7.4-10.4); Monocytes Absolute Auto 0.2 K/mm3 (0.1-0.6); Monocytes Percent Auto 2.4 % (2.6-8.5); Neutrophils Absolute Auto 5.7 K/mm3 (1.3-6.7); Neutrophils Percent Auto 90.9 % (45.5-73.1); Platelet Count Result 113 k/mm3 (150-375); Red Blood Count 2.92 M/mm3 (4.6-6.20); Red Cell Distribution Width 13.9 % (11.5-14.5); White Blood Count 6.2 K/mm3 (4.5-10.0)
--- NOTE | 2021-04-30 09:30 | PCOTNOTE ---
Patient in small bowel follow up procedure, unavailable to see for OT this AM. Will attempt this PM if available and appropriate.
--- NOTE | 2021-04-30 10:07 | PCPTNOTE ---
Attempted to see pt at 0915 for PT session. RN states that pt is off the floor for testing and unable to be seen at this time. Will check back later as schedule allows and pt is available/appropriate.
[2021-04-30] MEDS: MEGESTROL ACETATE (*CHEMO) 40 MG TABLET PO (10:08)
[2021-04-30] MEDS: PANTOPRAZOLE SODIUM IV 40 MG VIAL IV PUSH ×2 (10:09→20:21)
[2021-04-30 10:30] LABS: Triglycerides 82 mg/dL (<150)
[2021-04-30] MEDS: AMINO ACIDS 4.25%/D5W/LYTES/CA 2,000 ML 80 ML IV CONT (12:10)
[2021-04-30] MEDS: FAT EMULSIONS IV 20% 250 ML 20.83 ML IVPB (12:11)
[2021-04-30 12:51] LABS: Glucose Point of Care 151 mg/dl (65-105)
--- NOTE | 2021-04-30 12:53 | PM.PNGS ---
Progress Note: A&P Assessment and Plan (1) Perforated gastric ulcer: Onset Date: ~04/27/21 Code(s): K25.5 - Chronic or unspecified gastric ulcer with perforation Status: Acute Assessment and Plan: Doing okay postop day 3. Not much out NG and tolerating sucrulfate down the tube. Still somewhat coagulopathic by lab testing but there are no signs of bleeding (INR down to 1.2 ). No obvious source of bleeding. Overall patient making some progress. Moved out of ICU on 04/28/2021 and art line removed at that time. He has not had nutrition for some time therefore, cell have started peripheral Clinimix until we can allow him to begin oral nutrition. Gastrografin study down the NG tube showed no leak. however, there was still a fairly dilated loop of small bowel in the right mid and upper abdomen. And still a good amount of free air within the abdomen. Therefore, will do a KUB to check on progression of the dye given from upper GI into the remaining small bowel and if it has not progressed too far consider a Gastrografin enema of to check the ileal it rectal anastomosis site and rule out internal narrowing or leak. ----- On the KUB the Gastrografin had made all the way to the rectum and there was no signs of extravasation. Will repeat obstructive series tomorrow morning before progressing to any further studies. Will consider tube feedings through the NG or removing NG with bedside swallow and then advancing to clear liquids for nutrition if patient doing otherwise okay later today. Dr. Negron postuates that the patient perhaps developed the ulcer related with use of steroids. Repeat labs and two-view the abdomen in a.m. and continue NG suction for another 12 - 16 hours. (2) Adynamic ileus: Onset Date: Unknown Code(s): K56.0 - Paralytic ileus Status: Acute Assessment and Plan: This is somewhat expected after surgery but the patient did have that ahead of time and it may have been caused by the inflammation related to the ulcer. Patient has hypoactivebowel sounds today, not much out the NG the last 24 hours, and had 1 bowel movement after suppository yesterday and a no other large liquid brown bowel movement during the night. (3) Pneumonia due to COVID-19 virus: Onset Date: ~03/2021 Code(s): U07.1 - COVID-19; J12.82 - Pneumonia due to coronavirus disease 2019 Status: Acute Assessment and Plan: Continues on steroids. Please see the chart and see hospitalist note. (4) Acute kidney injury: Onset Date: Unknown Code(s): N17.9 - Acute kidney failure, unspecified Status: Acute Assessment and Plan: BUN and creatinine slightly improved today. Will recheck tomorrow. Continue with IV fluid, but have started PPN to help with his nutrition since he has not been eating for a while. (5) Hypertension: Onset Date: Unknown Code(s): I10 - Essential (primary) hypertension Status: Acute Assessment and Plan: On IV meds per hospitalist. Will try to resume usual meds once NG is out. Subjective Subjective Date/Time Seen: 04/30/21 12:53 Post Op day: 3 ( stable status post over-sewing of gastric ulcer) Patient reports: no new complaints and bowel movement Interval history: The nurse reports patient getting out of bed with PT. Review of Systems Review of Systems: ROS unobtainable: Yes unobtainable due to medical condition and unobtainable due to mental status Constitutional: Constitutional: Reports as per HPI, Denies fever(s) and Reports other ( patient not able to communicate well.) Exam Const: General: cooperative, no acute distress, alert, ill appearing and tired appearing Nutritional Appearance: thin Limitations: altered mental status ( Usually does not answer questions and just mumbles.) HENMT: Head: normal to inspection, normocephalic and atraumatic Ears: hearing grossly normal bilater
--- NOTE | 2021-04-30 13:21 | PM.IMPN ---
Progress Note: A&P Assessment and Plan (1) Perforated gastric ulcer: Onset Date: ~04/27/21 Code(s): K25.5 - Chronic or unspecified gastric ulcer with perforation Status: Acute Assessment and Plan: s/p exploratory laparotomy 04/27/2021 and finding gastric ulcer perforation Continue IV fluids NG tube in place NPO for now for general surgeon On empiric Zosyn and Diflucan Culture sent and pending IV PPI Went for Gastrografin study to check for any leak (2) Coagulopathy: Code(s): D68.9 - Coagulation defect, unspecified Status: Acute Assessment and Plan: Patient's PTT and INR elevated could be DIC versus chronic liver disease Plan to transfuse 2 units of FFP and vitamin K Monitor coagulation profile Coagulopathy improved with FFP and vitamin K could be from vitamin K deficiency due to poor p.o. intake DIC panel with normal fibrinogen level suggesting DIC unlikely (3) Acute kidney injury: Code(s): N17.9 - Acute kidney failure, unspecified Status: Acute Assessment and Plan: Admission creatinine of 2.7, Likely prerenal due to volume depletion/dehydration and possibly a component of ATN. Continue IV fluids Creatinine trending down CT abdomen pelvis did not show any hydronephrosis Beckman is in place for strict I&Os Monitor urine output and electrolytes along with creatinine Diuretics hydrochlorothiazide and lisinopril on hold Renal function continues to improve (4) Hypernatremia: Code(s): E87.0 - Hyperosmolality and hypernatremia Status: Acute Assessment and Plan: Improving with hypotonic fluids This has resolved (5) Hypoxia: Code(s): R09.02 - Hypoxemia Status: Acute Assessment and Plan: Likely secondary to atelectasis versus COVID-19 Add incentive spirometry and up in chair when possible His procalcitonin was normal but he is already on Zosyn for his abdominal sepsis which would cover for any pneumonia He is on room air currently Off isolation for COVID (6) Pneumonia due to COVID-19 virus: Onset Date: ~03/2021 Code(s): U07.1 - COVID-19; J12.82 - Pneumonia due to coronavirus disease 2019 Status: Acute Assessment and Plan: Pulmonary infiltrates consistent with COVID pneumonia Patient was not candidate for remdesivir due to renal failure and also out of window next continue Decadron (7) Hypertension: Onset Date: Unknown Code(s): I10 - Essential (primary) hypertension Status: Acute Assessment and Plan: Monitor and treat as needed currently his blood pressure medications on hold and (8) Hyperglycemia: Code(s): R73.9 - Hyperglycemia, unspecified Status: Acute Assessment and Plan: Add sliding scale (9) Adynamic ileus: Onset Date: Unknown Code(s): K56.0 - Paralytic ileus Status: Acute Assessment and Plan: Plan for Gastrografin enema per General surgery (10) Hypophosphatemia: Code(s): E83.39 - Other disorders of phosphorus metabolism Status: Acute Assessment and Plan: Replace Additional Plan DVT prophylaxis -SCDs for now Stress ulcer prophylaxis -on PPI Nutrition -NPO Code Status - Full Code Subjective Date/time seen: 04/30/21 13:21 Interval history: No overnight event. More awake and attentive today. He has been started on peripheral nutrition IV. Remains NPO. He had 2 large bowel movement yesterday. Discussed with nursing staff. Review of Systems Review of Systems: All systems reviewed & are unremarkable except as noted in HPI and below Exam Narrative: General: Pt is old cachectic frail male who is awake and in NAD, ng tube in place Lungs/Chest: Trachea central Clear BS B/L, No crackles or wheezing. Cardiac: RRR. Normal S1 S2. No murmurs Circulation: Pedal pulses are intact and symmetrical. Abdomen: Decreased bowel sounds.. Soft. Mild diffuse tenderness palpation,
--- NOTE | 2021-04-30 13:28 | PCPTNOTE ---
Attempted to see patient for PT, however unable due to X-ray in room with patient.
--- NOTE | 2021-04-30 13:33 | PCNFU ---
Nutrition Follow-Up Complete: Inadequate oral intake related to decreased appetite as evidenced by patient reported weight lost of 14-23 pounds and average meal intake of 0% as well as refusing several meals. Goal: Patient to meet estimated nutritional needs. Patient progressing towards goal. We will continue current goal. Pt current nutrition is NPO/PPN. Last recorded weight is 60.3 kg, up from 56.9 kg. Bowel Motility:+BM reported. Labs Reviewed:Alb 2.2,HCt 25.9,Hgb 8.7,Glu 161 Meds Noted:Carafate, Zofran, Protonix, Zosyn, Protonix, Clinimix 4.25/5 at 80 ml/hr, 250 ml 20% Lipid Emulsion. Additional Notes: Nutrition follow up today. Patient has NGT in place. PPN at 80 ml/hr providing 1153 kcals and 82 gms protein. Current PPN meeting 67% of patients caloric needs. Small Bowel testing today. Monitor patient's labs, medications, weight, and oral intake every 3 days.
--- NOTE | 2021-04-30 14:13 | PCOTNOTE ---
Attempted to see patient after PT was finishing treatment, patient declined. Will continue plan of care tomorrow.
[2021-04-30] MEDS: POTASSIUM PHOS,M-BASIC-D-BASIC 20 MMOL in SODIUM CHLORIDE 0.9% IV 250 ML 64.17 MMOL IVPB (14:25)
[2021-04-30] MEDS: MEGESTROL ACETATE (*CHEMO) ORAL SUSP 40 MG/ML SYR PO (16:46)
[2021-04-30 18:42] LABS: Glucose Point of Care 174 mg/dl (65-105)
[2021-04-30] MEDS: FLUCONAZOLE 100 MG/NACL 50 ML 100 MG/50 ML BTL 50 MG IVPB (20:20)
[2021-05-01] VITALS (11 sets, daily range): BP systolic 125–147; BP diastolic 53–74; PULSE 54–97; RESP 16–18; TEMP 36.1–37.2; O2SAT 90–97
[2021-05-01] MEDS: SUCRALFATE SUSP 100 MG/ML 10 ML UDC 1000 MG FEED TUBE ×4 (00:07→17:34)
[2021-05-01 00:29] LABS: Glucose Point of Care 168 mg/dl (65-105)
[2021-05-01 06:00] LABS: Hematocrit 28.8 % (42.0-52.0); Hemoglobin 9.4 g/dL (14.0-18.0); Mean Corpuscular HGB Conc 32.6 g/dl (32-36); Mean Corpuscular Hemoglobin 29.1 pg (26-34); Mean Corpuscular Volume 89.2 fl (80-100); Mean Platelet Volume 12.2 fl (7.4-10.4); Platelet Count Result 112 k/mm3 (150-375); Red Blood Count 3.23 M/mm3 (4.6-6.20); Red Cell Distribution Width 13.9 % (11.5-14.5)
[2021-05-01 06:09] LABS: INR 1.1; Prothrombin Time 14.4 Seconds (11.1-14.7)
[2021-05-01 06:16] LABS: Alanine Aminotransferase 167 U/L (4-50); Albumin Level 2.5 g/dL (3.5-5.1); Alkaline Phosphatase 106 U/L (38-126); Anion Gap 6 mmol/L (8-16); Aspartate Amino Transferase 54 U/L (17-59); Bilirubin,Total 0.6 mg/dL (0.2-1.3); Blood Urea Nitrogen 29 mg/dL (9-20); Calcium 8.1 mg/dL (8.4-10.2); Carbon Dioxide 27 mmol/L (22-30); Chloride 111 mmol/L (98-107); Estimated CRCL calculation 50 ml/min; Estimated Glomerular Filt Rate > 60; Glucose 168 mg/dL (65-110); Magnesium 2.3 mg/dL (1.6-2.3); Phosphorus 3.4 mg/dL (2.5-4.5); Potassium 3.6 mmol/L (3.4-5.0); Sodium 144 mmol/L (137-145)
[2021-05-01 06:55] LABS: Glucose Point of Care 152 mg/dl (65-105)
--- NOTE | 2021-05-01 08:53 | PM.PNGS ---
Progress Note: A&P Assessment and Plan (1) Perforated gastric ulcer: Onset Date: ~04/27/21 Code(s): K25.5 - Chronic or unspecified gastric ulcer with perforation Status: Acute Assessment and Plan: Doing okay postop day 4. Not much out NG and tolerating sucrulfate down the tube. Still there are no signs of bleeding (INR down to 1.1 ). No obvious source of bleeding. Overall patient making some progress. Moved out of ICU on 04/28/2021 and art line removed at that time. He has not had nutrition for some time therefore, I have started peripheral Clinimix until we can allow him to begin oral nutrition. Gastrografin study down the NG tube showed no leak. however, there was still a fairly dilated loop of small bowel in the right mid and upper abdomen. And still a good amount of free air within the abdomen. Therefore, a KUB to check on progression of the dye was done in the afternoon of and showed the dye had made it all the way to the rectum. Therefore, I did not do a water soluble dye enema since this dye already present would inhibit a good study. We repeated a obstructive series this morning and this shows that most the dye as made to the distal small bowel and rectum where he has the ileal-rectal anastomosis. ( There is nocolon Left other than his rectum). Will consider tube feedings through the NG or removing NG with bedside swallow and then advancing to clear liquids for nutrition if patient doing otherwise okay later today. 15: 30--- will remove NG since patient passed a swallow test and begin clear liquids. (He has also has had several more bowel movements today) (2) Malnutrition, calorie: Onset Date: ~03/2021 Code(s): E46 - Unspecified protein-calorie malnutrition Status: Acute Assessment and Plan: patient's daughter states he has not been eating normal since he was in the hospital in [place] for COVID late last month. Pre-albumin done 04/28 shows definite malnutrition with a reading of 12.8 with normal being 17-32. I will continue PPN at least another 24 hours as he was just beginning started on clear liquid late today. (3) Adynamic ileus: Onset Date: Unknown Code(s): K56.0 - Paralytic ileus Status: Acute Assessment and Plan: This is somewhat expected after surgery but the patient did have that ahead of time and it may have been caused by the inflammation related to the ulcer. Suspect this is now resolved this the patient had bowel movements both yesterday and today spontaneously. Also, his Gastrografin dye in the stomach made to the ileal rectal anastomosis in about 2-3 hours. (4) Pneumonia due to COVID-19 virus: Onset Date: ~03/2021 Code(s): U07.1 - COVID-19; J12.82 - Pneumonia due to coronavirus disease 2018 Status: Acute Assessment and Plan: Continues on steroids. Please see the chart and see hospitalist note. (5) Acute kidney injury: Onset Date: Unknown Code(s): N17.9 - Acute kidney failure, unspecified Status: Acute Assessment and Plan: BUN and creatinine slightly improved today. Will recheck tomorrow. Continue with IV fluid, but have started PPN to help with his nutrition since he has not been eating for a while. (6) Hypertension: Onset Date: Unknown Code(s): I10 - Essential (primary) hypertension Status: Acute Assessment and Plan: On IV meds per hospitalist. Will try to resume usual meds once NG is out. Additional Plan Increase activity and out of bed with PT. Subjective Subjective Date/Time Seen: 05/01/21 08:53 Post Op day: 4 ( continuing to improve postop day 4) Patient reports: no new complaints and bowel movement Interval history: The patient answers questions just with mumbling. Seems to answer yes that he has some abdominal pain. Night nurse reports he did tell her earlier that he was thirsty. 1550 ---n
[2021-05-01] MEDS: MEGESTROL ACETATE (*CHEMO) ORAL SUSP 40 MG/ML SYR PO ×2 (09:22→17:34)
[2021-05-01] MEDS: PANTOPRAZOLE SODIUM IV 40 MG VIAL IV PUSH ×2 (09:22→20:58)
--- NOTE | 2021-05-01 11:40 | PCNFU ---
Nutrition Follow-Up Complete: Inadequate oral intake related to decreased appetite as evidenced by patient reported weight lost of 14-23 pounds and average meal intake of 0% as well as refusing several meals. goal: Patient to meet estimated nutritional needs. Progressing towards goal. We will continue current goal. Pt current nutrition is NPO/PPN. Last recorded weight is 60.3 kg, up from 56.9 kg on admit. Bowel Motility:+BM reported 04/30 Labs Reviewed:Glu 168,BUN 29,ALb 2.5,Hgb 9.4,Hct 28.8 Meds Noted:Protonix, Zosyn,Carafate, Megace, Clinimix 4.25/5 at 80 ml/hr with 250 ml of 20% Lipid Emulsion. Additional Notes: Nutrition follow up. Patient had repeat obstructive series-no leak found. Spoke with nursing, patient is on a clamping schedule for NGT. MD is discussing diet order advancement to oral feedings or NGT tube feedings. Tube feeding recommendations: Jevity 1.2 at 25 ml/hr advance by 10 ml q 4 hours to goal rate of 65 ml/hr. Monitor patient's labs, medications, weight, and oral intake every Friday and Friday.
[2021-05-01] MEDS: AMINO ACIDS 4.25%/D5W/LYTES/CA 2,000 ML 80 ML IV CONT (11:55)
[2021-05-01] MEDS: FAT EMULSIONS IV 20% 250 ML 20.83 ML IVPB (11:55)
[2021-05-01 13:05] LABS: Glucose Point of Care 140 mg/dl (65-105)
--- NOTE | 2021-05-01 14:04 | PM.IMPN ---
Progress Note: A&P Assessment and Plan (1) Perforated gastric ulcer: Onset Date: ~04/27/21 Code(s): K25.5 - Chronic or unspecified gastric ulcer with perforation Status: Acute Assessment and Plan: s/p exploratory laparotomy 04/27/2021 and finding gastric ulcer perforation Continue IV fluids NG tube in place NPO for now for general surgeon On empiric Zosyn and Diflucan Culture sent and pending IV PPI Went for Gastrografin study to check for any leak 05/01/21 14:04 Patient with perforated gastric ulcer status post exploratory laparotomy on 04/27, seen by general surgeon, patient on NG tube had a obstructive series no sign of perforation patient has ileus, patient treated with Zosyn and Diflucan empirically, patient with elevated INR was given FFP and vitamin K, INR today is 1.1, unfortunately patient unable to provide any review of symptom, continue to monitor and appreciate surgery service and further recommendation to follow (2) Coagulopathy: Code(s): D68.9 - Coagulation defect, unspecified Status: Acute Assessment and Plan: Patient's PTT and INR elevated could be DIC versus chronic liver disease Plan to transfuse 2 units of FFP and vitamin K Monitor coagulation profile Coagulopathy improved with FFP and vitamin K could be from vitamin K deficiency due to poor p.o. intake DIC panel with normal fibrinogen level suggesting DIC unlikely (3) Acute kidney injury: Code(s): N17.9 - Acute kidney failure, unspecified Status: Acute Assessment and Plan: Admission creatinine of 2.7, Likely prerenal due to volume depletion/dehydration and possibly a component of ATN. Continue IV fluids Creatinine trending down CT abdomen pelvis did not show any hydronephrosis Beckman is in place for strict I&Os Monitor urine output and electrolytes along with creatinine Diuretics hydrochlorothiazide and lisinopril on hold Renal function continues to improve (4) Hypernatremia: Code(s): E87.0 - Hyperosmolality and hypernatremia Status: Acute Assessment and Plan: Improving with hypotonic fluids This has resolved (5) Hypoxia: Code(s): R09.02 - Hypoxemia Status: Acute Assessment and Plan: Likely secondary to atelectasis versus COVID-19 Add incentive spirometry and up in chair when possible His procalcitonin was normal but he is already on Zosyn for his abdominal sepsis which would cover for any pneumonia He is on room air currently Off isolation for COVID (6) Pneumonia due to COVID-19 virus: Onset Date: ~03/2021 Code(s): U07.1 - COVID-19; J12.82 - Pneumonia due to coronavirus disease 2018 Status: Acute Assessment and Plan: Pulmonary infiltrates consistent with COVID pneumonia Patient was not candidate for remdesivir due to renal failure and also out of window next continue Decadron (7) Hypertension: Onset Date: Unknown Code(s): I10 - Essential (primary) hypertension Status: Acute Assessment and Plan: Monitor and treat as needed currently his blood pressure medications on hold and (8) Hyperglycemia: Code(s): R73.9 - Hyperglycemia, unspecified Status: Acute Assessment and Plan: Add sliding scale (9) Adynamic ileus: Onset Date: Unknown Code(s): K56.0 - Paralytic ileus Status: Acute Assessment and Plan: Plan for Gastrografin enema per General surgery (10) Hypophosphatemia: Code(s): E83.39 - Other disorders of phosphorus metabolism Status: Acute Assessment and Plan: Replace Additional Plan DVT prophylaxis -SCDs for now Stress ulcer prophylaxis -on PPI Nutrition -NPO Code Status - Full Code Subjective Date/time seen: 05/01/21 14:04 Patient with perforated gastric ulcer status post exploratory laparotomy on 04/27, seen by general surgeon, patient on NG tube had a obstructive series no sign of perforation patient has ileus, roberto
--- NOTE | 2021-05-01 14:23 | PCPTNOTE ---
Patient refused treatment this session. Pt kept shaking head no when prompting to work with therapy. Will continue with PT POC.
--- NOTE | 2021-05-01 15:19 | PC.NURSE ---
On 05/01/21, the student, Geoffrey Shepherd, provided care and completed [facility] documentation on this patient. I have reviewed the student's documentation and agree with the findings.
--- NOTE | 2021-05-01 15:35 | PCSTNOTE ---
Please refer to the Bedside Swallow Evaluation in the EMR. Please note, silent aspiration cannot be ruled out at bedside.
[2021-05-01 17:41] LABS: Glucose Point of Care 168 mg/dl (65-105)
[2021-05-01] MEDS: FLUCONAZOLE 100 MG/NACL 50 ML 100 MG/50 ML BTL 50 MG IVPB (20:57)
[2021-05-02] VITALS (12 sets, daily range): BP systolic 113–142; BP diastolic 49–70; PULSE 63–101; RESP 14–22; TEMP 35.8–37.3; O2SAT 93–100
[2021-05-02] MEDS: SUCRALFATE SUSP 100 MG/ML 10 ML UDC 1000 MG FEED TUBE ×4 (00:15→17:08)
[2021-05-02 00:33] LABS: Glucose Point of Care 165 mg/dl (65-105)
[2021-05-02 05:45] LABS: INR 1.2; Prothrombin Time 14.6 Seconds (11.1-14.7)
[2021-05-02 05:49] LABS: Alanine Aminotransferase 136 U/L (4-50); Albumin Level 2.5 g/dL (3.5-5.1); Alkaline Phosphatase 96 U/L (38-126); Anion Gap 6 mmol/L (8-16); Aspartate Amino Transferase 35 U/L (17-59); Bilirubin,Total 0.6 mg/dL (0.2-1.3); Blood Urea Nitrogen 29 mg/dL (9-20); Calcium 8.2 mg/dL (8.4-10.2); Carbon Dioxide 25 mmol/L (22-30); Chloride 111 mmol/L (98-107); Estimated CRCL calculation 50 ml/min; Estimated Glomerular Filt Rate > 60; Glucose 139 mg/dL (65-110); Magnesium 2.2 mg/dL (1.6-2.3); Potassium 3.8 mmol/L (3.4-5.0); Sodium 142 mmol/L (137-145)
[2021-05-02 05:50] LABS: Phosphorus 3.7 mg/dL (2.5-4.5)
[2021-05-02 06:55] LABS: Glucose Point of Care 122 mg/dl (65-105)
[2021-05-02 07:34] LABS: Glucose Point of Care 132 mg/dl (65-105)
[2021-05-02] MEDS: PANTOPRAZOLE SODIUM IV 40 MG VIAL IV PUSH ×2 (08:34→20:07)
[2021-05-02] MEDS: MEGESTROL ACETATE (*CHEMO) ORAL SUSP 40 MG/ML SYR PO ×2 (08:34→17:08)
[2021-05-02 09:11] LABS: Triglycerides 98 mg/dL (<150)
[2021-05-02] MEDS: AMINO ACIDS 4.25%/D5W/LYTES/CA 2,000 ML 80 ML IV CONT (11:08)
[2021-05-02] MEDS: FAT EMULSIONS IV 20% 250 ML 20.83 ML IVPB (11:08)
[2021-05-02 12:11] LABS: Glucose Point of Care 142 mg/dl (65-105)
--- NOTE | 2021-05-02 14:29 | PM.PNGS ---
Progress Note: A&P Assessment and Plan (1) Perforated gastric ulcer: Onset Date: ~04/27/21 Code(s): K25.5 - Chronic or unspecified gastric ulcer with perforation Status: Acute Assessment and Plan: Doing okay postop day 5. NG Out last night after passing a swallow test and now tolerating sucrulfate and clear liquids p.o. Still there are no signs of bleeding (INR down to 1.1 ). No obvious source of bleeding. Overall patient making some progress. Moved out of ICU on 04/28/2021 and art line removed at that time. He has not had nutrition for some time therefore, I have started peripheral Clinimix until we can allow him to begin oral nutrition. since he is not taking much even of the clear liquids that are loud will continue at least for another 24 hours. Gastrografin study down the NG tube showed no leak. however, there was still a fairly dilated loop of small bowel in the right mid and upper abdomen. And still a good amount of free air within the abdomen. Therefore, a KUB to check on progression of the dye was done in the afternoon of 04/30 and showed the dye had made it all the way to the rectum. Therefore, I did not do a water soluble dye enema since this dye already present would inhibit a good study. Cultures did show a yeast growing. Therefore I called the lab and they will try to identify this. We will continue to fluconazole. (2) Malnutrition, calorie: Onset Date: ~03/2021 Code(s): E46 - Unspecified protein-calorie malnutrition Status: Acute Assessment and Plan: patient's daughter states he has not been eating normal since he was in the hospital in [place] for COVID late last month. Pre-albumin done 04/28 shows definite malnutrition with a reading of 12.8 with normal being 17-32. I will continue PPN at least another 24 hours as he was just beginning on clear liquid and not taking a lot. (3) Adynamic ileus: Onset Date: Unknown Code(s): K56.0 - Paralytic ileus Status: Acute Assessment and Plan: This is somewhat expected after surgery but the patient did have that ahead of time and it may have been caused by the inflammation related to the ulcer. Suspect this is now resolved this the patient had bowel movements both yesterday and today spontaneously. Also, his Gastrografin dye in the stomach made to the ileo-rectal anastomosis in about 2-3 hours. (4) Pneumonia due to COVID-19 virus: Onset Date: ~03/2021 Code(s): U07.1 - COVID-19; J12.82 - Pneumonia due to coronavirus disease 2019 Status: Acute Assessment and Plan: Continues on steroids. Please see the chart and see hospitalist note. (5) Acute kidney injury: Onset Date: Unknown Code(s): N17.9 - Acute kidney failure, unspecified Status: Acute Assessment and Plan: BUN and creatinine slightly improved today. Will recheck tomorrow. Continue with IV fluid, but have started PPN to help with his nutrition since he has not been eating for a while. (6) Hypertension: Onset Date: Unknown Code(s): I10 - Essential (primary) hypertension Status: Acute Assessment and Plan: On IV meds per hospitalist. Will try to resume usual meds once NG is out. Additional Plan Increase activity and out of bed with PT. Subjective Subjective Date/Time Seen: 05/02/21 14:29 Post Op day: 5 (Postop day 5, seeming to do fairly well) Interval history: seems to be able to answer questions a little bit better today but still mumbling. I could more clearly hear him say yes today. Apparently tolerating clear liquids but not taking in a lot. Nurses report several loose stools in the last 24 hours. Review of Systems Review of Systems: ROS unobtainable: Yes unobtainable due to medical condition Exam Const: General: cooperative, no acute distress, alert and tired appearing Nutritional Appearance: thin Orientati
[2021-05-02 17:05] LABS: Glucose Point of Care 110 mg/dl (65-105)
--- NOTE | 2021-05-02 17:28 | PM.IMPN ---
Progress Note: A&P Assessment and Plan (1) Perforated gastric ulcer: Onset Date: ~04/27/21 Code(s): K25.5 - Chronic or unspecified gastric ulcer with perforation Status: Acute Assessment and Plan: s/p exploratory laparotomy 04/27/2021 and finding gastric ulcer perforation Continue IV fluids NG tube in place NPO for now for general surgeon On empiric Zosyn and Diflucan Culture sent and pending IV PPI Went for Gastrografin study to check for any leak 05/01/21 14:04 Patient with perforated gastric ulcer status post exploratory laparotomy on 04/27, seen by general surgeon, patient on NG tube had a obstructive series no sign of perforation patient has ileus, patient treated with Zosyn and Diflucan empirically, patient with elevated INR was given FFP and vitamin K, INR today is 1.1, unfortunately patient unable to provide any review of symptom, continue to monitor and appreciate surgery service and further recommendation to follow. 05/02 today patient abdominal is distended and appears uncomfortable, seen by surgery service, the patient on clear liquid, remains clinically stable will continue to monitor further recommendation to follow (2) Coagulopathy: Code(s): D68.9 - Coagulation defect, unspecified Status: Acute Assessment and Plan: Patient's PTT and INR elevated could be DIC versus chronic liver disease Plan to transfuse 2 units of FFP and vitamin K Monitor coagulation profile Coagulopathy improved with FFP and vitamin K could be from vitamin K deficiency due to poor p.o. intake DIC panel with normal fibrinogen level suggesting DIC unlikely (3) Acute kidney injury: Code(s): N17.9 - Acute kidney failure, unspecified Status: Acute Assessment and Plan: Admission creatinine of 2.7, Likely prerenal due to volume depletion/dehydration and possibly a component of ATN. Continue IV fluids Creatinine trending down CT abdomen pelvis did not show any hydronephrosis Beckman is in place for strict I&Os Monitor urine output and electrolytes along with creatinine Diuretics hydrochlorothiazide and lisinopril on hold Renal function continues to improve (4) Hypernatremia: Code(s): E87.0 - Hyperosmolality and hypernatremia Status: Acute Assessment and Plan: Improving with hypotonic fluids This has resolved (5) Hypoxia: Code(s): R09.02 - Hypoxemia Status: Acute Assessment and Plan: Likely secondary to atelectasis versus COVID-19 Add incentive spirometry and up in chair when possible His procalcitonin was normal but he is already on Zosyn for his abdominal sepsis which would cover for any pneumonia He is on room air currently Off isolation for COVID (6) Pneumonia due to COVID-19 virus: Onset Date: ~03/2021 Code(s): U07.1 - COVID-19; J12.82 - Pneumonia due to coronavirus disease 2018 Status: Acute Assessment and Plan: Pulmonary infiltrates consistent with COVID pneumonia Patient was not candidate for remdesivir due to renal failure and also out of window next continue Decadron (7) Hypertension: Onset Date: Unknown Code(s): I10 - Essential (primary) hypertension Status: Acute Assessment and Plan: Monitor and treat as needed currently his blood pressure medications on hold and (8) Hyperglycemia: Code(s): R73.9 - Hyperglycemia, unspecified Status: Acute Assessment and Plan: Add sliding scale (9) Adynamic ileus: Onset Date: Unknown Code(s): K56.0 - Paralytic ileus Status: Acute Assessment and Plan: Plan for Gastrografin enema per General surgery (10) Hypophosphatemia: Code(s): E83.39 - Other disorders of phosphorus metabolism Status: Acute Assessment and Plan: Replace Additional Plan DVT prophylaxis -SCDs for now Stress ulcer prophylaxis -on PPI Nutrition -NPO Code Status - Full Code Subjective Date/time seen:
[2021-05-02 18:09] LABS: Glucose Point of Care 109 mg/dl (65-105)
[2021-05-02] MEDS: FLUCONAZOLE 100 MG/NACL 50 ML 100 MG/50 ML BTL 50 MG IVPB (20:07)
[2021-05-02 21:18] LABS: Glucose Point of Care 132 mg/dl (65-105)
[2021-05-02 23:44] LABS: Glucose Point of Care 120 mg/dl (65-105)
[2021-05-03] VITALS (8 sets, daily range): BP systolic 118–151; BP diastolic 48–93; PULSE 17–108; RESP 16–20; TEMP 36.2–37.1; O2SAT 93–100
[2021-05-03] MEDS: SUCRALFATE SUSP 100 MG/ML 10 ML UDC 1000 MG FEED TUBE ×3 (05:38→18:09)
[2021-05-03 05:54] LABS: Basophils Percent Auto 0.1 % (0.2-1.2); Eosinophils Absolute Auto 0.1 K/mm3 (0-0.3); Eosinophils Percent Auto 0.7 % (0-4.4); Hematocrit 30.6 % (42.0-52.0); Hemoglobin 10.1 g/dL (14.0-18.0); Immature Granulocyte Percent A 1.3 % (0-0.5); Immature Platelet Fraction Pct 4.5 % (0.9-11.2); Lymphocytes Absolute Auto 0.56 K/mm3 (0.9-3.2); Lymphocytes Percent Auto 7.3 % (18.3-44.2); Mean Corpuscular Hemoglobin 30.1 pg (26-34); Mean Corpuscular Volume 91.3 fl (80-100); Mean Platelet Volume 12.1 fl (7.4-10.4); Monocytes Absolute Auto 0.3 K/mm3 (0.1-0.6); Monocytes Percent Auto 3.3 % (2.6-8.5); Neutrophils Absolute Auto 6.7 K/mm3 (1.3-6.7); Neutrophils Percent Auto 87.3 % (45.5-73.1); Nucleated Red Blood Cells Perc 0.4 % (0.0-0.2); Platelet Count Result 113 k/mm3 (150-375); Red Blood Count 3.35 M/mm3 (4.6-6.20); Red Cell Distribution Width 14.3 % (11.5-14.5); White Blood Count 7.6 K/mm3 (4.5-10.0)
[2021-05-03 06:01] LABS: INR 1.2; Prothrombin Time 14.6 Seconds (11.1-14.7)
[2021-05-03 06:09] LABS: Alanine Aminotransferase 117 U/L (4-50); Albumin Level 2.4 g/dL (3.5-5.1); Alkaline Phosphatase 99 U/L (38-126); Anion Gap 7 mmol/L (8-16); Aspartate Amino Transferase 33 U/L (17-59); Bilirubin,Total 0.7 mg/dL (0.2-1.3); Blood Urea Nitrogen 27 mg/dL (9-20); Calcium 8.3 mg/dL (8.4-10.2); Carbon Dioxide 21 mmol/L (22-30); Chloride 113 mmol/L (98-107); Estimated CRCL calculation 55 ml/min; Estimated Glomerular Filt Rate > 60; Glucose 124 mg/dL (65-110); Magnesium 2.2 mg/dL (1.6-2.3); Phosphorus 4.1 mg/dL (2.5-4.5); Potassium 3.7 mmol/L (3.4-5.0); Sodium 141 mmol/L (137-145)
[2021-05-03 06:44] LABS: Glucose Point of Care 116 mg/dl (65-105)
[2021-05-03] MEDS: MEGESTROL ACETATE (*CHEMO) ORAL SUSP 40 MG/ML SYR PO ×2 (09:28→18:09)
[2021-05-03] MEDS: PANTOPRAZOLE SODIUM IV 40 MG VIAL IV PUSH ×2 (09:29→20:40)
--- NOTE | 2021-05-03 11:04 | PCOTNOTE ---
Attempted to see twice this am, however patient refused both times. First attempt, patient was sleeping upon entering and would not arouse for functional therapy. Second attempt, patient was sitting up in chair after physical therapy. Pt appeared to be taking continual deep breaths. O2 within normal limits. Pt refused with hand gestures putting hands up and waving side to side.
[2021-05-03] MEDS: FAT EMULSIONS IV 20% 250 ML 20.83 ML IVPB (11:42)
[2021-05-03] MEDS: AMINO ACIDS 4.25%/D5W/LYTES/CA 2,000 ML 80 ML IV CONT (11:42)
[2021-05-03 13:06] LABS: Glucose Point of Care 118 mg/dl (65-105)
--- NOTE | 2021-05-03 14:19 | WPDINFPN2 ---
Progress Note: A&P Assessment and Plan (1) Perforated gastric ulcer: Onset Date: ~04/27/21 Code(s): K25.5 - Chronic or unspecified gastric ulcer with perforation Status: Acute Assessment and Plan: PUD with focal peritonitis, POD #6 REC Can back off antibacterial. Fluconazole to complete 14 day course, see order. Call if Qs Subjective Date/time seen: 05/03/21 14:19 Objective Data Vital Signs Vital Signs: Vital Signs - 24 hr 05/02/21 16:00 05/02/21 18:09 05/02/21 20:00 Temperature 37.3 C 37.2 C Pulse Rate 91 101 H 87 Respiratory Rate 18 22 H Blood Pressure 126/61 113/49 L Pulse Oximetry 93 100 05/03/21 00:00 05/03/21 04:00 05/03/21 08:00 Temperature 37.1 C 36.6 C 36.8 C Pulse Rate 88 78 99 Respiratory Rate 20 18 20 Blood Pressure 139/61 142/57 H 150/66 H Pulse Oximetry 98 97 95 05/03/21 12:00 Temperature 36.2 C L Pulse Rate 105 H Respiratory Rate 18 Blood Pressure 151/93 H Pulse Oximetry 93 Intake/Output Intake/Output: Intake & Output 04/30/21 05/01/21 05/02/21 05/03/21 23:59 23:59 23:59 23:59 Intake Total 2816.6667 2844 3100 2100 Output Total 1440 1350 1400 500 Balance 1376.6667 1494 1700 1600 Meds/Results Medications: Active Medications Generic Name Dose Route Start Last Admin Trade Name Freq PRN Reason Stop Dose Admin Acetaminophen 500 mg 04/27/21 17:04 Acetaminophen 500 Mg Tablet PO Q6H PRN Mild Pain (1-3) or Fever Hydrocodone Bitart/Acetaminophen 1 tab 04/27/21 17:04 Hydrocodone/Acetaminophen (*Crx) 5-325 Mg Tablet PO Q4H PRN Pain Rated 4-6 Albuterol 2.5 mg 04/22/21 14:28 Albuterol Sulfate Neb 2.5 Mg/0.5 Ml Inh INHALATION Q6HRT PRN Shortness Of Breath Dextrose 12.5 gm 04/28/21 09:35 Dextrose 50% 25 Gm/50 Ml Syringe IV PUSH PRN PRN Hypoglycemia Protocol Diphenhydramine HCl 25 mg 04/27/21 17:04 Diphenhydramine Hcl Inj 50 Mg/Ml Vial IV PUSH Q6H PRN Itching Fentanyl Citrate 25 mcg 04/27/21 12:26 Fentanyl Citrate Inj (*Crx) 100 Mcg/2 Ml Vial IV PUSH Q2M PRN Pain Glucagon 1 mg 04/28/21 09:35 Glucagon For Inj 1 Mg Vial IM PRN PRN Hypoglycemia Protocol Glucose 15 gm 04/28/21 09:35 Glucose Oral Gel 15 Gm Of Glucse In 37.5 Gm Tube PO PRN PRN Hypoglycemia Protocol Fluconazole/Dextrose 100 mg in 50 mls @ 50 mls/hr 04/27/21 21:00 05/02/21 20:07 Diflucan 100 Mg/Nacl 50 Ml IVPB 50 mls/hr HS BARTOLO Administration Dextrose 1,000 mls @ 100 mls/hr 04/28/21 09:35 Dextrose 5% 1,000 Ml IVPB PRN PRN Hypoglycemia Protocol Dextrose 1,000 mls @ 50 mls/hr 04/29/21 14:27 Dextrose 10% IV CONT .Q20H PRN if PN is interrupted Amino Acids/Electrolytes/Dextrose 2,000 mls @ 80 mls/hr 04/29/21 10:30 05/03/21 11:42 Clinimix E 4.25%/5% Solution IV CONT 80 mls/hr .Q24H BARTOLO Administration Protocol Fat Emulsion Intravenous 250 mls @ 20.833 mls/hr 04/29/21 10:30 05/03/21 11:42 Lipids 20% IVPB 20.83 mls/hr Q24H BARTOLO Administration Piperacillin/Tazobactam/Dextrose 3.375 gm in 50 mls @ 100 mls/hr 05/01/21 06:00 05/03/21 11:43 Zosyn 3.375 Gm/D5w 50ml Pm IVPB 100 mls/hr Q6HR BARTOLO Administration Insulin Aspart 2 - 5 units 04/28/21 12:00 05/03/21 12:17 Insulin Aspart (*Bkc) 100 Units/Ml SUB-Q Not Given Q6HR BARTOLO Protocol Ipratropium [place] 0.5 mg 04/22/21 14:28 Ipratropium Br 0.02% Inh Soln 0.5 Mg/2.5 Ml Vial INHALATION Q6HRT PRN Shortness Of Breath Megestrol Acetate 40 mg 04/30/21 17:00 05/03/21 09:28 Megestrol Acetate (*Chemo) Oral Susp 40 Mg/Ml Syr PO 40 mg BID BARTOLO Administration Miconazole Nitrate 1 applic 05/03/21 09:00 05/03/21 11:43 Miconazole 2% Antifungal Ointment 56 Gm TOPICAL 1 applic Q12HR BARTOLO Administration Morphine Sulfate 2 mg 04/27/21 17:04 Morphine Sulfate (*Crx) 2 Mg/Ml Inj IV PUSH
--- NOTE | 2021-05-03 16:06 | PM.IMPN ---
Progress Note: A&P Assessment and Plan (1) Perforated gastric ulcer: Onset Date: ~04/27/21 Code(s): K25.5 - Chronic or unspecified gastric ulcer with perforation Status: Acute Assessment and Plan: s/p exploratory laparotomy 04/27/2021 and finding gastric ulcer perforation Continue IV fluids NG tube in place NPO for now for general surgeon On empiric Zosyn and Diflucan Culture sent and pending IV PPI Went for Gastrografin study to check for any leak 05/03/21 16:06 Patient with perforated gastric ulcer status post exploratory laparotomy on 04/27, seen by general surgeon, patient on NG tube had a obstructive series no sign of perforation patient has ileus, patient treated with Zosyn and Diflucan empirically, patient with elevated INR was given FFP and vitamin K, INR today is 1.1, unfortunately patient unable to provide any review of symptom, continue to monitor and appreciate surgery service and further recommendation to follow. 05/02 today patient abdominal is distended and appears uncomfortable, seen by surgery service, the patient on clear liquid, remains clinically stable will continue to monitor further recommendation to follow. 05/03 Today sitting in the chair appears comfortable, patient with bowel perforation postop day #6, today patient seen by ID recommending reduce IV abx, and continue Fluconazole to complete 14 days, patient remains clinically stable, patient will be seen by surgery service further recommendation to follow. (2) Coagulopathy: Code(s): D68.9 - Coagulation defect, unspecified Status: Acute Assessment and Plan: Patient's PTT and INR elevated could be DIC versus chronic liver disease Plan to transfuse 2 units of FFP and vitamin K Monitor coagulation profile Coagulopathy improved with FFP and vitamin K could be from vitamin K deficiency due to poor p.o. intake DIC panel with normal fibrinogen level suggesting DIC unlikely (3) Acute kidney injury: Code(s): N17.9 - Acute kidney failure, unspecified Status: Acute Assessment and Plan: Admission creatinine of 2.7, Likely prerenal due to volume depletion/dehydration and possibly a component of ATN. Continue IV fluids Creatinine trending down CT abdomen pelvis did not show any hydronephrosis Beckman is in place for strict I&Os Monitor urine output and electrolytes along with creatinine Diuretics hydrochlorothiazide and lisinopril on hold Renal function continues to improve (4) Hypernatremia: Code(s): E87.0 - Hyperosmolality and hypernatremia Status: Acute Assessment and Plan: Improving with hypotonic fluids This has resolved (5) Hypoxia: Code(s): R09.02 - Hypoxemia Status: Acute Assessment and Plan: Likely secondary to atelectasis versus COVID-19 Add incentive spirometry and up in chair when possible His procalcitonin was normal but he is already on Zosyn for his abdominal sepsis which would cover for any pneumonia He is on room air currently Off isolation for COVID (6) Pneumonia due to COVID-19 virus: Onset Date: ~03/2021 Code(s): U07.1 - COVID-19; J12.82 - Pneumonia due to coronavirus disease 2018 Status: Acute Assessment and Plan: Pulmonary infiltrates consistent with COVID pneumonia Patient was not candidate for remdesivir due to renal failure and also out of window next continue Decadron (7) Hypertension: Onset Date: Unknown Code(s): I10 - Essential (primary) hypertension Status: Acute Assessment and Plan: Monitor and treat as needed currently his blood pressure medications on hold and (8) Hyperglycemia: Code(s): R73.9 - Hyperglycemia, unspecified Status: Acute Assessment and Plan: Add sliding scale (9) Adynamic ileus: Onset Date: Unknown Code(s): K56.0 - Paralytic ileus Status: Acute Assessment and Plan: Plan for Gastrografin enema per General calli
[2021-05-03 18:26] LABS: Glucose Point of Care 144 mg/dl (65-105)
--- NOTE | 2021-05-03 18:52 | CONS_ITS ---
DATE OF CONSULTATION: 05/03/2021 REASON FOR CONSULTATION: Tova in peritoneal fluid. HISTORY OF PRESENT ILLNESS: A 71-year-old male who can provide limited history. He was at another hospital in late March with coronavirus infection from April 08 until April 13. He then was sent for rehab, but admitted here with increasing weakness, poor appetite, and hypoxemia. He apparently already had a Beckman upon arrival here, which did contain urine. The patient initially was treated with fluids. Due to hypoxemia, he was started on remdesivir and dexamethasone on April 23. The corticosteroid has now been stopped. At various times, he has also been given ceftriaxone, azithromycin, ertapenem, Megace. He is now on piperacillin tazobactam day 7 and fluconazole since the . On the , he was noted to have abdominal pain, nausea and vomiting with x-ray revealing free air. He was taken to the operating room same day. This is postop day 6. He had a perforated gastric ulcer, distal anterior body of the stomach with localized peritonitis. He underwent over-sewing of the gastric ulcer with a L[place]ito type patch, peritoneal washout and exploratory laparotomy. He was on TPN postop, though now on oral diet. He has had no dysphagia, not required any other surgical intervention. No drains in place. PRESENT MEDICATIONS: As above. ALLERGIES: NONE KNOWN. HABITS: Smoked until his recent acute illness. PAST MEDICAL HISTORY: Vaccine status for coronavirus unknown. He has had a previous partial colectomy and thus his omentum was absent at the time of his laparotomy, RLS, prediabetes, hypertension, previous diverticulitis, and arthritis. REVIEW OF SYSTEMS: 14-point review attempted, though not obtainable directly from the patient, otherwise per record. FAMILY HISTORY: Not pertinent to his present illness. SOCIAL HISTORY: No family at the bedside. He lives with his daughter customarily. residential resident most recently as above. PHYSICAL EXAMINATION: GENERAL: This is a chronically ill-appearing male older than his actual age, very thin but not cachectic. No acute distress. VITAL SIGNS: His temperature on postop day 1 was up to 39.4, otherwise has been consistently afebrile, 105, 18, 93%. SKIN: Warm and dry. No rashes. No fungal dermatitis. EENT: Pupils equal, round, minimally reactive. Conjunctivae are normal. No petechiae. He has abundant mucus in the mouth adherent to the mucous membranes, soft palate, tongue. He has what appears to be thrush over the soft palate as well. NECK: No masses, thyromegaly or meningismus. LUNGS: Clear to auscultation and percussion. Good air entry. CARDIAC: Distant S1, S2. Tachycardic. No murmurs or gallops. ABDOMEN: Stapled midline scars healing appropriately. No drains. There is no tenderness. No organomegaly. EXTREMITIES: Without clubbing, cyanosis, or edema. No decubitus ulcers. LABORATORY DATA: From April 23, his C difficile assay was nonreactive from the operating room, Gram stain, many white cells, no organisms seen. Culture has since grown scant yeast identified as Tova albicans. Other laboratory notable for normal white count, hemoglobin 10.1, platelets are 113. Electrolytes normal other than high chloride, low CO2. BUN 27, creatinine 0.9, glucose 124. Accu-Cheks in the low to mid 100s. ALT 117, AST normal, albumin 2.4. RADIOLOGY: KUB 2 days ago, ileus and residual free air. Abdomen pelvic CT 04/27, ascites and free air, resolved fecal impaction. ASSESSMENT: 1. Recent coronavirus infection, suspected viral pneumonia as a result. Further antiinfective therapy is not indicated. 2. Gastric perforation with localized peritonitis, cultures above, suspect true infection with Tova albic
--- NOTE | 2021-05-03 20:15 | PM.PNGS ---
Progress Note: A&P Assessment and Plan (1) Perforated gastric ulcer: Onset Date: ~04/27/21 Code(s): K25.5 - Chronic or unspecified gastric ulcer with perforation Status: Acute Assessment and Plan: Doing okay postop day 6. NG out on 05/01 after passing a swallow test and now tolerating sucrulfate and clear liquids p.o. Still there are no signs of bleeding. Overall patient making some progress. Moved out of ICU on 04/28/2021 and art line removed at that time. He has not had nutrition for some time therefore, I have started peripheral Clinimix until we can allow him to begin oral nutrition. since he is not taking much even of the clear liquids that are allowed will continue at least for another 24 hours. Gastrografin study down the NG tube showed no leak. however, there was still a fairly dilated loop of small bowel in the right mid and upper abdomen. And still a good amount of free air within the abdomen. Therefore, a KUB to check on progression of the dye was done in the afternoon of 04/30 and showed the dye had made it all the way to the rectum. Therefore, I did not do a water soluble dye enema since this dye already present would inhibit a good study. Cultures did show a yeast growing. Therefore I called the lab and they will try to identify this. We will continue to fluconazole. Agree with ID consult for an opinoin on po vs continued anti-fungal med and length of course of Rx needed (2) Malnutrition, calorie: Onset Date: ~03/2021 Code(s): E46 - Unspecified protein-calorie malnutrition Status: Acute Assessment and Plan: patient's daughter states he has not been eating normal since he was in the hospital in [place] for COVID late last month. Pre-albumin done 04/28 shows definite malnutrition with a reading of 12.8 with normal being 17-32. I will repeat pre-alb in AM and stop the PPN today to see if it helps his appetite. Liberalized his diet more today. (3) Adynamic ileus: Onset Date: Unknown Code(s): K56.0 - Paralytic ileus Status: Acute Assessment and Plan: This is now resolved. The patient had bowel movements both yesterday and today spontaneously. Also, his Gastrografin dye in the stomach made to the ileo-rectal anastomosis in about 2-3 hours. (4) Pneumonia due to COVID-19 virus: Onset Date: ~03/2021 Code(s): U07.1 - COVID-19; J12.82 - Pneumonia due to coronavirus disease 2019 Status: Acute Assessment and Plan: Threatment completed. Please see the chart and see hospitalist note. (5) Acute kidney injury: Onset Date: Unknown Code(s): N17.9 - Acute kidney failure, unspecified Status: Acute Assessment and Plan: BUN and creatinine slightly improved today. Creatinine now in nl range. (6) Hypertension: Onset Date: Unknown Code(s): I10 - Essential (primary) hypertension Status: Acute Assessment and Plan: Back on meds per hospitalist. Will try to resume usual meds since NG is out. Additional Plan Increase activity and out of bed with PT. Subjective Subjective Date/Time Seen: 05/03/21 12:15 Post Op day: POD # 6 Patient reports: no new complaints Interval history: Sitting up in the chair when I entered to room. Nurse reports that he is not eating unless smoe one feeds him. Review of Systems Review of Systems: ROS unobtainable: Yes unobtainable due to medical condition and unobtainable due to mental status Constitutional: Constitutional: Reports as per HPI, Denies fever(s) and Reports other ( patient not able to communicate well.) Exam Const: General: cooperative, no acute distress, alert, ill appearing and tired appearing Nutritional Appearance: thin Orientation/consciousness: oriented to person, oriented to place and patient oriented x3 Limitations: altered mental status ( Usually does not answer questions and just mumbles
[2021-05-04] VITALS (7 sets, daily range): BP systolic 120–129; BP diastolic 50–68; PULSE 77–101; RESP 16; TEMP 36.6–37.4; O2SAT 94–99
[2021-05-04] MEDS: SUCRALFATE SUSP 100 MG/ML 10 ML UDC 1000 MG FEED TUBE ×5 (00:18→23:42)
[2021-05-04 03:39] LABS: Glucose Point of Care 146 mg/dl (65-105)
[2021-05-04 05:53] LABS: Anion Gap 4 mmol/L (8-16); Blood Urea Nitrogen 26 mg/dL (9-20); Calcium 8.4 mg/dL (8.4-10.2); Carbon Dioxide 23 mmol/L (22-30); Chloride 113 mmol/L (98-107); Estimated CRCL calculation 61 ml/min; Estimated Glomerular Filt Rate > 60; Glucose 124 mg/dL (65-110); Phosphorus 3.7 mg/dL (2.5-4.5); Potassium 3.8 mmol/L (3.4-5.0); Sodium 140 mmol/L (137-145)
[2021-05-04 05:56] LABS: Glucose Point of Care 125 mg/dl (65-105)
[2021-05-04] MEDS: FLUCONAZOLE 100 MG TABLET PO (08:43)
[2021-05-04] MEDS: MEGESTROL ACETATE (*CHEMO) ORAL SUSP 40 MG/ML SYR PO ×2 (08:43→17:52)
[2021-05-04] MEDS: PANTOPRAZOLE SODIUM IV 40 MG VIAL IV PUSH ×2 (08:45→21:15)
[2021-05-04 09:41] LABS: Triglycerides 83 mg/dL (<150)
--- NOTE | 2021-05-04 10:57 | PCPTNOTE ---
Attempted to see patient for PT, however patient refused. Patient stated maybe later.
[2021-05-04 11:29] LABS: Glucose Point of Care 121 mg/dl (65-105)
--- NOTE | 2021-05-04 11:36 | PCNFU ---
Nutrition Follow-Up Complete: Inadequate oral intake related to decreased appetite as evidenced by patient reported weight lost of 14-23 pounds and average meal intake of 0% as well as refusing several meals. Goal: Patient to meet estimated nutritional needs. Limited progress towards goal. We will continue current goal. Pt current nutrition is Pureed, Level 7. Last recorded weight is 60.2 kg, up from 56.9 kg on admit. Bowel Motility:+BM reported 05/03 Labs Reviewed:Glu 124,BUN 27,Alb 2.4,Hct 30.6,Hgb 10.1 Meds Noted:Protonix,Diflucan,Megace,Carafate. Additional Notes: Nutrition follow up. Patient advanced yesterday to a Pureed diet. Intake has been 0% of meals. Megace was added for appetite stimulant. PPN d/c on 05/03. MD orders for Ensure Enlive added TID today, providing an additional 350 kcals and 20 gms protein. PO intake is encouraged. If poor po intake continues recommend NGT tube feedings of Jevity 1.2 at 30 ml/hr advance by 10 ml q to goal rate of 65 ml/hr. Monitor: patient's labs, medications, weight, and oral intake every 3 days.
--- NOTE | 2021-05-04 12:02 | PM.IMPN ---
Progress Note: A&P Assessment and Plan (1) Perforated gastric ulcer: Onset Date: ~04/27/21 Code(s): K25.5 - Chronic or unspecified gastric ulcer with perforation Status: Acute Assessment and Plan: s/p exploratory laparotomy 04/27/2021 and finding gastric ulcer perforation Continue IV fluids NG tube in place NPO for now for general surgeon On empiric Zosyn and Diflucan Culture sent and pending IV PPI Went for Gastrografin study to check for any leak 05/04/21 12:02 05/01 Patient with perforated gastric ulcer status post exploratory laparotomy on 04/27, seen by general surgeon, patient on NG tube had a obstructive series no sign of perforation patient has ileus, patient treated with Zosyn and Diflucan empirically, patient with elevated INR was given FFP and vitamin K, INR today is 1.1, unfortunately patient unable to provide any review of symptom, continue to monitor and appreciate surgery service and further recommendation to follow. 05/02 today patient abdominal is distended and appears uncomfortable, seen by surgery service, the patient on clear liquid, remains clinically stable will continue to monitor further recommendation to follow. 05/03 Today sitting in the chair appears comfortable, patient with bowel perforation postop day #6, today patient seen by ID recommending reduce IV abx, and continue Fluconazole to complete 14 days, patient remains clinically stable, patient will be seen by surgery service further recommendation to follow. 05/04 patient remains clinically stable seen by dietitian recommended Ensure to increase his energy intake, I opened a bottle and helped him he drank 1/3 bottle however he is not eating any of his lunch. will continue to monitor, patient be seen by surgery service and further recommendation to follow. (2) Coagulopathy: Code(s): D68.9 - Coagulation defect, unspecified Status: Acute Assessment and Plan: Patient's PTT and INR elevated could be DIC versus chronic liver disease Plan to transfuse 2 units of FFP and vitamin K Monitor coagulation profile Coagulopathy improved with FFP and vitamin K could be from vitamin K deficiency due to poor p.o. intake DIC panel with normal fibrinogen level suggesting DIC unlikely (3) Acute kidney injury: Code(s): N17.9 - Acute kidney failure, unspecified Status: Acute Assessment and Plan: Admission creatinine of 2.7, Likely prerenal due to volume depletion/dehydration and possibly a component of ATN. Continue IV fluids Creatinine trending down CT abdomen pelvis did not show any hydronephrosis Beckman is in place for strict I&Os Monitor urine output and electrolytes along with creatinine Diuretics hydrochlorothiazide and lisinopril on hold Renal function continues to improve (4) Hypernatremia: Code(s): E87.0 - Hyperosmolality and hypernatremia Status: Acute Assessment and Plan: Improving with hypotonic fluids This has resolved (5) Hypoxia: Code(s): R09.02 - Hypoxemia Status: Acute Assessment and Plan: Likely secondary to atelectasis versus COVID-19 Add incentive spirometry and up in chair when possible His procalcitonin was normal but he is already on Zosyn for his abdominal sepsis which would cover for any pneumonia He is on room air currently Off isolation for COVID (6) Pneumonia due to COVID-19 virus: Onset Date: ~03/2021 Code(s): U07.1 - COVID-19; J12.82 - Pneumonia due to coronavirus disease 2018 Status: Acute Assessment and Plan: Pulmonary infiltrates consistent with COVID pneumonia Patient was not candidate for remdesivir due to renal failure and also out of window next continue Decadron (7) Hypertension: Onset Date: Unknown Code(s): I10 - Essential (primary) hypertension Status: Acute Assessment and Plan: Monitor and treat as needed currently his blood pressure medications on hold and (8) Hyperg
[2021-05-04 14:29] LABS: H pylori Ag Stool Not Detected (Not Detected)
--- NOTE | 2021-05-04 14:40 | PCPTNOTE ---
Attempted to see patient for PT at this time, however patient refused. Patient would just shake his head no.
[2021-05-04 16:34] LABS: Glucose Point of Care 97 mg/dl (65-105)
--- NOTE | 2021-05-04 17:43 | PM.PNGS ---
Progress Note: A&P Assessment and Plan (1) Perforated gastric ulcer: Onset Date: ~04/27/21 Code(s): K25.5 - Chronic or unspecified gastric ulcer with perforation Status: Acute Assessment and Plan: Doing okay postop day 7. NG out on 05/01 after passing a swallow test and now tolerating sucrulfate and Pureed diet p.o. Still there are no signs of bleeding. Overall patient making some progress. Moved out of ICU on 04/28/2021 and art line removed at that time. Gastrografin study down the NG tube showed no leak. However, there was still a fairly dilated loop of small bowel in the right mid and upper abdomen. And still a good amount of free air within the abdomen. Therefore, a KUB to check on progression of the dye was done in the afternoon of 04/30 and showed the dye had made it all the way to the rectum. Therefore, I did not do a water soluble dye enema since this dye already present would inhibit a good study. Cultures did show a yeast growing. Therefore I called the lab and they will try to identify this. We will continue to fluconazole. Agree with ID consult for an opinoin on po vs continued anti-fungal med and length of course of Rx needed (Appreciate His input on 05/03) It appears pt is trying some of his Pureed food so will continue that and await calorie count and further recommendations by Actuary --- agree with Ensure between meals. (2) Malnutrition, calorie: Onset Date: ~03/2021 Code(s): E46 - Unspecified protein-calorie malnutrition Status: Acute Assessment and Plan: patient's daughter states he has not been eating normal since he was in the hospital in [place] for COVID late last month. Pre-albumin done 04/28 shows definite malnutrition with a reading of 12.8 with normal being 17-32. I will repeat pre-alb in AM and stop the PPN today to see if it helps his appetite. Liberalized his diet more yesterday. (3) Adynamic ileus: Onset Date: Unknown Code(s): K56.0 - Paralytic ileus Status: Acute Assessment and Plan: This is now resolved. The patient had bowel movements both yesterday and today spontaneously. Also, his Gastrografin dye in the stomach made to the ileo-rectal anastomosis in about 2-3 hours. (4) Pneumonia due to COVID-19 virus: Onset Date: ~03/2021 Code(s): U07.1 - COVID-19; J12.82 - Pneumonia due to coronavirus disease 2019 Status: Acute Assessment and Plan: Threatment completed. Please see the chart and see hospitalist note. (5) Acute kidney injury: Onset Date: Unknown Code(s): N17.9 - Acute kidney failure, unspecified Status: Acute Assessment and Plan: BUN and creatinine slightly improved today. Creatinine now in nl range. (6) Hypertension: Onset Date: Unknown Code(s): I10 - Essential (primary) hypertension Status: Acute Assessment and Plan: Back on meds per hospitalist. Will try to resume usual meds since NG is out. Additional Plan Increase activity and out of bed with PT. Could begin discussion with Family and apprieciate help of case management for either ECF placement or Home health as next steps. Subjective Subjective Date/Time Seen: 05/04/21 17:43 Post Op day: POD # 7 Patient reports: no new complaints and bowel movement Interval history: Denies abd. pain. took abite of his mashed potatoes at lunch time when I was there and put the spoon in his hand and encouraged him. Otherwise seems to be acting distant and not interested in his surroundings. Nurse reports that he slept ok and that the PPN is just being stopped today about now. Review of Systems Review of Systems: ROS unobtainable: Yes unobtainable due to medical condition and unobtainable due to mental status Exam Const: General: cooperative, no acute distress, alert, ill appearing and tired appearing Nutritional Appearance: thin Orientation/
[2021-05-05] VITALS (9 sets, daily range): BP systolic 105–139; BP diastolic 47–89; PULSE 87–108; RESP 16–24; TEMP 35.8–37.4; O2SAT 96–100
[2021-05-05 00:03] LABS: Glucose Point of Care 88 mg/dl (65-105)
[2021-05-05] MEDS: SUCRALFATE SUSP 100 MG/ML 10 ML UDC 1000 MG FEED TUBE ×4 (06:07→23:50)
[2021-05-05 06:24] LABS: Glucose Point of Care 76 mg/dl (65-105)
[2021-05-05 06:27] LABS: Anion Gap 6 mmol/L (8-16); Blood Urea Nitrogen 22 mg/dL (9-20); Calcium 8.6 mg/dL (8.4-10.2); Carbon Dioxide 21 mmol/L (22-30); Chloride 114 mmol/L (98-107); Estimated CRCL calculation 55 ml/min; Estimated Glomerular Filt Rate > 60; Glucose 91 mg/dL (65-110); Potassium 3.8 mmol/L (3.4-5.0); Sodium 141 mmol/L (137-145)
[2021-05-05 06:34] LABS: Prealbumin 18.4 mg/dL (17.6-36.0)
[2021-05-05 07:53] LABS: Glucose Point of Care 92 mg/dl (65-105)
[2021-05-05] MEDS: FLUCONAZOLE 100 MG TABLET PO (08:35)
[2021-05-05] MEDS: MEGESTROL ACETATE (*CHEMO) ORAL SUSP 40 MG/ML SYR PO ×2 (08:35→17:33)
[2021-05-05] MEDS: PANTOPRAZOLE SODIUM IV 40 MG VIAL IV PUSH ×2 (08:36→21:03)
--- NOTE | 2021-05-05 10:46 | PM.PNGS ---
Progress Note: A&P Assessment and Plan (1) Perforated gastric ulcer: Onset Date: ~04/27/21 Code(s): K25.5 - Chronic or unspecified gastric ulcer with perforation Status: Acute Assessment and Plan: POD 8, improving, encourage cont po intake, OOB/IS, will likely need rehab (2) Malnutrition, calorie: Onset Date: ~03/2021 Code(s): E46 - Unspecified protein-calorie malnutrition Status: Acute Assessment and Plan: cont to encourage po intake, calorie count, supplementation Subjective Subjective Date/Time Seen: 05/05/21 10:46 looks pretty good this am, eating more, seems pretty alert and answering questions appropriately, denies any abdominal pain Review of Systems Review of Systems: All systems reviewed & are unremarkable except as noted in HPI and below Exam Const: General: cooperative, comfortable, no acute distress and ill appearing Nutritional Appearance: average body habitus Orientation/consciousness: oriented to person and oriented to place Limitations: no limitations Resp: Effort & Inspection: normal respiratory effort Auscultation: clear to auscultation bilaterally Cardio: Rate: regular rate Rhythm: regular rhythm GI: Inspection: normal to inspection and incision GI Palp: Yes Soft to palpation and No Tenderness to palpation present (GI) Other: soft, ND, NT, incision C/D/I Objective Data Vital Signs Vital Signs: Vital Signs - 24 hr 05/04/21 12:00 05/04/21 16:00 05/04/21 20:00 Temperature 37.1 C 37.0 C 37.4 C Pulse Rate 100 98 99 Respiratory Rate 16 16 16 Blood Pressure 129/56 L 128/58 L 120/58 L Pulse Oximetry 99 98 94 05/05/21 00:00 05/05/21 04:00 05/05/21 08:45 Temperature 37.4 C 37.4 C 35.8 C L Pulse Rate 100 108 H 99 Respiratory Rate 18 16 24 H Blood Pressure 114/56 L 105/56 L 122/65 Pulse Oximetry 96 96 98 Intake/Output Intake/Output: Intake & Output 05/02/21 05/03/21 05/04/21 05/05/21 23:59 23:59 23:59 23:59 Intake Total 3100 2400 450 250 Output Total 1400 1250 1000 400 Balance 1700 1150 -550 -150 Meds/Results Medications: Active Medications Generic Name Dose Route Start Last Admin Trade Name Freq PRN Reason Stop Dose Admin Acetaminophen 500 mg 04/27/21 17:04 Acetaminophen 500 Mg Tablet PO Q6H PRN Mild Pain (1-3) or Fever Hydrocodone Bitart/Acetaminophen 1 tab 04/27/21 17:04 Hydrocodone/Acetaminophen (*Crx) 5-325 Mg Tablet PO Q4H PRN Pain Rated 4-6 Albuterol 2.5 mg 04/22/21 14:28 Albuterol Sulfate Neb 2.5 Mg/0.5 Ml Inh INHALATION Q6HRT PRN Shortness Of Breath Dextrose 12.5 gm 04/28/21 09:35 Dextrose 50% 25 Gm/50 Ml Syringe IV PUSH PRN PRN Hypoglycemia Protocol Diphenhydramine HCl 25 mg 04/27/21 17:04 Diphenhydramine Hcl Inj 50 Mg/Ml Vial IV PUSH Q6H PRN Itching Fentanyl Citrate 25 mcg 04/27/21 12:26 Fentanyl Citrate Inj (*Crx) 100 Mcg/2 Ml Vial IV PUSH Q2M PRN Pain Fluconazole 100 mg 05/04/21 09:00 05/05/21 08:35 Fluconazole 100 Mg Tablet PO 05/10/21 09:01 100 mg QAM BARTOLO Administration Glucagon 1 mg 04/28/21 09:35 Glucagon For Inj 1 Mg Vial IM PRN PRN Hypoglycemia Protocol Glucose 15 gm 04/28/21 09:35 Glucose Oral Gel 15 Gm Of Glucse In 37.5 Gm Tube PO PRN PRN Hypoglycemia Protocol Dextrose 1,000 mls @ 100 mls/hr 04/28/21 09:35 Dextrose 5% 1,000 Ml IVPB PRN PRN Hypoglycemia Protocol Insulin Aspart 2 - 5 units 04/28/21 12:00 05/05/21 06:07 Insulin Aspart (*Bkc) 100 Units/Ml SUB-Q Not Given Q6HR BARTOLO Protocol Ipratropium [place] 0.5 mg 04/22/21 14:28 Ipratropium Br 0.02% Inh Soln 0.5 Mg/2.5 Ml Vial INHALATION Q6HRT PRN Shortness Of Breath Megestrol Acetate 40 mg 04/30/21 17:00 05/05/21 08:35 Megestrol Acetate (*Chemo) Oral Susp 40 Mg/Ml Syr PO 40 mg BID BARTOLO Administration Miconazole Nitrate 1 deanne
--- NOTE | 2021-05-05 13:15 | PM.IMPN ---
Progress Note: A&P Assessment and Plan (1) Perforated gastric ulcer: Onset Date: ~04/27/21 Code(s): K25.5 - Chronic or unspecified gastric ulcer with perforation Status: Acute Assessment and Plan: s/p exploratory laparotomy 04/27/2021 and finding gastric ulcer perforation Continue IV fluids NG tube in place NPO for now for general surgeon On empiric Zosyn and Diflucan Culture sent and pending IV PPI Went for Gastrografin study to check for any leak 05/04/21 12:02 05/01 Patient with perforated gastric ulcer status post exploratory laparotomy on 04/27, seen by general surgeon, patient on NG tube had a obstructive series no sign of perforation patient has ileus, patient treated with Zosyn and Diflucan empirically, patient with elevated INR was given FFP and vitamin K, INR today is 1.1, unfortunately patient unable to provide any review of symptom, continue to monitor and appreciate surgery service and further recommendation to follow. 05/02 today patient abdominal is distended and appears uncomfortable, seen by surgery service, the patient on clear liquid, remains clinically stable will continue to monitor further recommendation to follow. 05/03 Today sitting in the chair appears comfortable, patient with bowel perforation postop day #6, today patient seen by ID recommending reduce IV abx, and continue Fluconazole to complete 14 days, patient remains clinically stable, patient will be seen by surgery service further recommendation to follow. 05/04 patient remains clinically stable seen by dietitian recommended Ensure to increase his energy intake, I opened a bottle and helped him he drank 1/3 bottle however he is not eating any of his lunch. will continue to monitor, patient be seen by surgery service and further recommendation to follow. 05/05 Remains medically stable. Awaiting bed at [facility] (2) Coagulopathy: Code(s): D68.9 - Coagulation defect, unspecified Status: Acute Assessment and Plan: Patient's PTT and INR elevated could be DIC versus chronic liver disease Was transfused 2 units of FFP and vitamin K INR normalized could be from vitamin K deficiency due to poor p.o. intake DIC panel with normal fibrinogen level suggesting DIC unlikely (3) Acute kidney injury: Code(s): N17.9 - Acute kidney failure, unspecified Status: Acute Assessment and Plan: Admission creatinine of 2.7, Likely prerenal due to volume depletion/dehydration and possibly a component of ATN. Continue IV fluids Creatinine trending down CT abdomen pelvis did not show any hydronephrosis Beckman is in place for strict I&Os Monitor urine output and electrolytes along with creatinine Diuretics hydrochlorothiazide and lisinopril on hold Renal function continues to improve 05/05 creatinine 0.9 (4) Hypernatremia: Code(s): E87.0 - Hyperosmolality and hypernatremia Status: Acute Assessment and Plan: Improving with hypotonic fluids This has resolved (5) Hypoxia: Code(s): R09.02 - Hypoxemia Status: Acute Assessment and Plan: Likely secondary to atelectasis and COVID-19 Add incentive spirometry and up in chair when possible His procalcitonin was normal but he is already on Zosyn for his abdominal sepsis which would cover for any pneumonia He is on room air currently Off isolation for COVID (6) Pneumonia due to COVID-19 virus: Onset Date: ~03/2021 Code(s): U07.1 - COVID-19; J12.82 - Pneumonia due to coronavirus disease 2018 Status: Acute Assessment and Plan: Pulmonary infiltrates consistent with COVID pneumonia Patient was not candidate for remdesivir due to renal failure and also out of window next continue Decadron (7) Hypertension: Onset Date: Unknown Code(s): I10 - Essential (primary) hypertension Status: Acute Assessment and Plan: Monitor and treat as needed currently his blood pressure medication
[2021-05-05 13:22] LABS: Glucose Point of Care 85 mg/dl (65-105)
[2021-05-05 18:35] LABS: Glucose Point of Care 105 mg/dl (65-105)
[2021-05-06] VITALS: BP 139/55; PULSE 104; PULSE 88; RESP 18; TEMP 36.6; O2SAT 96
[2021-05-06 00:09] LABS: Glucose Point of Care 116 mg/dl (65-105)
[2021-05-06 04:00] VITALS: BP 115/58; PULSE 98; PULSE 99; RESP 21; TEMP 36.5; O2SAT 100
[2021-05-06] MEDS: SUCRALFATE SUSP 100 MG/ML 10 ML UDC 1000 MG FEED TUBE ×3 (05:48→16:50)
[2021-05-06 05:56] LABS: Anion Gap 7 mmol/L (8-16); Blood Urea Nitrogen 19 mg/dL (9-20); Calcium 8.7 mg/dL (8.4-10.2); Carbon Dioxide 24 mmol/L (22-30); Chloride 113 mmol/L (98-107); Estimated CRCL calculation 50 ml/min; Estimated Glomerular Filt Rate > 60; Glucose 108 mg/dL (65-110); Sodium 144 mmol/L (137-145)
[2021-05-06 06:01] LABS: Glucose Point of Care 85 mg/dl (65-105)
[2021-05-06 08:00] VITALS: PULSE 87
[2021-05-06] MEDS: MEGESTROL ACETATE (*CHEMO) ORAL SUSP 40 MG/ML SYR PO ×2 (08:32→16:50)
[2021-05-06] MEDS: FLUCONAZOLE 100 MG TABLET PO (08:33)
[2021-05-06 08:51] LABS: Glucose Point of Care 90 mg/dl (65-105)
[2021-05-06] MEDS: PANTOPRAZOLE SODIUM IV 40 MG VIAL IV PUSH (08:53)
--- NOTE | 2021-05-06 09:04 | PM.PNGS ---
Progress Note: A&P Assessment and Plan (1) Perforated gastric ulcer: Onset Date: ~04/27/21 Code(s): K25.5 - Chronic or unspecified gastric ulcer with perforation Status: Acute Assessment and Plan: doing well, encourage po, OOB/IS, await transfer to [facility] Subjective Subjective Date/Time Seen: 05/06/21 09:04 feels good, no c/o, reports he is eating more Review of Systems Review of Systems: All systems reviewed & are unremarkable except as noted in HPI and below Exam Const: General: cooperative, comfortable and no acute distress Resp: Auscultation: clear to auscultation bilaterally Cardio: Rate: regular rate Rhythm: regular rhythm GI: Inspection: normal to inspection and incision GI Palp: Yes Soft to palpation, No Tenderness to palpation present (GI) and No Guarding due to palpation present (GI) Other: soft, NT, ND, incision C/D/I Objective Data Vital Signs Vital Signs: Vital Signs - 24 hr 05/05/21 12:00 05/05/21 13:48 05/05/21 16:00 Temperature 36.3 C L Pulse Rate 101 H 99 87 Respiratory Rate 20 Blood Pressure 122/89 Pulse Oximetry 99 05/05/21 17:45 05/05/21 20:00 05/06/21 00:00 Temperature 36.4 C L 37.2 C 36.6 C Pulse Rate 94 89 104 H Respiratory Rate 20 20 18 Blood Pressure 139/60 111/47 L 139/55 L Pulse Oximetry 100 98 96 05/06/21 04:00 Temperature 36.5 C Pulse Rate 99 Respiratory Rate 21 H Blood Pressure 115/58 L Pulse Oximetry 100 Intake/Output Intake/Output: Intake & Output 05/03/21 05/04/21 05/05/21 05/06/21 23:59 23:59 23:59 23:59 Intake Total 2400 450 850 200 Output Total 1250 1000 650 400 Balance 1150 -550 200 -200 Meds/Results Medications: Active Medications Generic Name Dose Route Start Last Admin Trade Name Freq PRN Reason Stop Dose Admin Acetaminophen 500 mg 04/27/21 17:04 Acetaminophen 500 Mg Tablet PO Q6H PRN Mild Pain (1-3) or Fever Hydrocodone Bitart/Acetaminophen 1 tab 04/27/21 17:04 Hydrocodone/Acetaminophen (*Crx) 5-325 Mg Tablet PO Q4H PRN Pain Rated 4-6 Albuterol 2.5 mg 04/22/21 14:28 Albuterol Sulfate Neb 2.5 Mg/0.5 Ml Inh INHALATION Q6HRT PRN Shortness Of Breath Dextrose 12.5 gm 04/28/21 09:35 Dextrose 50% 25 Gm/50 Ml Syringe IV PUSH PRN PRN Hypoglycemia Protocol Diphenhydramine HCl 25 mg 04/27/21 17:04 Diphenhydramine Hcl Inj 50 Mg/Ml Vial IV PUSH Q6H PRN Itching Fentanyl Citrate 25 mcg 04/27/21 12:26 Fentanyl Citrate Inj (*Crx) 100 Mcg/2 Ml Vial IV PUSH Q2M PRN Pain Fluconazole 100 mg 05/04/21 09:00 05/06/21 08:33 Fluconazole 100 Mg Tablet PO 05/10/21 09:01 100 mg QAM BARTOLO Administration Glucagon 1 mg 04/28/21 09:35 Glucagon For Inj 1 Mg Vial IM PRN PRN Hypoglycemia Protocol Glucose 15 gm 04/28/21 09:35 Glucose Oral Gel 15 Gm Of Glucse In 37.5 Gm Tube PO PRN PRN Hypoglycemia Protocol Dextrose 1,000 mls @ 100 mls/hr 04/28/21 09:35 Dextrose 5% 1,000 Ml IVPB PRN PRN Hypoglycemia Protocol Insulin Aspart 2 - 5 units 04/28/21 12:00 05/06/21 05:48 Insulin Aspart (*Bkc) 100 Units/Ml SUB-Q Not Given Q6HR [facility] Protocol Ipratropium [place] 0.5 mg 04/22/21 14:28 Ipratropium Br 0.02% Inh Soln 0.5 Mg/2.5 Ml Vial INHALATION Q6HRT PRN Shortness Of Breath Megestrol Acetate 40 mg 04/30/21 17:00 05/06/21 08:32 Megestrol Acetate (*Chemo) Oral Susp 40 Mg/Ml Syr PO 40 mg BID BARTOLO Administration Miconazole Nitrate 1 applic 05/03/21 09:00 05/06/21 08:34 Miconazole 2% Antifungal Ointment 56 Gm TOPICAL 1 applic Q12HR BARTOLO Administration Morphine Sulfate 2 mg 04/27/21 17:04 Morphine Sulfate (*Crx) 2 Mg/Ml Inj IV PUSH Q2H PRN Pain Rated 4-6 Naloxone HCl 0.1 mg 04/27/21 17:04 Naloxone Hcl 0.4 Mg/Ml Vial IV PUSH Q2M PRN Opiate Reversal Ondansetron HCl 4 mg 04/21/21 13:30 09
[2021-05-06 09:05] VITALS: BP 113/64; PULSE 94; RESP 16; TEMP 36.8; O2SAT 96
--- NOTE | 2021-05-06 10:11 | PM.DS ---
DS: Admitting Diagnosis Discharge Date May 06, 2021 Admitting Diagnosis Hypernatremia, dehydration, acute kidney injury DS: Discharge Diagnosis Discharge Diagnosis (1) Perforated gastric ulcer: Onset Date: ~04/27/21 Code(s): K25.5 - Chronic or unspecified gastric ulcer with perforation Status: Acute Assessment and Plan: s/p exploratory laparotomy 04/27/2021 and finding gastric ulcer perforation Continue IV fluids NG tube in place NPO for now for general surgeon On empiric Zosyn and Diflucan Culture sent and pending IV PPI Went for Gastrografin study to check for any leak 05/04/21 12:02 05/01 Patient with perforated gastric ulcer status post exploratory laparotomy on 04/27, seen by general surgeon, patient on NG tube had a obstructive series no sign of perforation patient has ileus, patient treated with Zosyn and Diflucan empirically, patient with elevated INR was given FFP and vitamin K, INR today is 1.1, unfortunately patient unable to provide any review of symptom, continue to monitor and appreciate surgery service and further recommendation to follow. 05/02 today patient abdominal is distended and appears uncomfortable, seen by surgery service, the patient on clear liquid, remains clinically stable will continue to monitor further recommendation to follow. 05/03 Today sitting in the chair appears comfortable, patient with bowel perforation postop day #6, today patient seen by ID recommending reduce IV abx, and continue Fluconazole to complete 14 days, patient remains clinically stable, patient will be seen by surgery service further recommendation to follow. 05/04 patient remains clinically stable seen by dietitian recommended Ensure to increase his energy intake, I opened a bottle and helped him he drank 1/3 bottle however he is not eating any of his lunch. will continue to monitor, patient be seen by surgery service and further recommendation to follow. 05/05 Remains medically stable. Awaiting bed at [facility] 05/06 Medically stable for discharge (2) Coagulopathy: Code(s): D68.9 - Coagulation defect, unspecified Status: Acute Assessment and Plan: Patient's PTT and INR elevated could be DIC versus chronic liver disease Was transfused 2 units of FFP and vitamin K INR normalized could be from vitamin K deficiency due to poor p.o. intake DIC panel with normal fibrinogen level suggesting DIC unlikely (3) Acute kidney injury: Code(s): N17.9 - Acute kidney failure, unspecified Status: Acute Assessment and Plan: Admission creatinine of 2.7, Likely prerenal due to volume depletion/dehydration and possibly a component of ATN. Continue IV fluids Creatinine trending down CT abdomen pelvis did not show any hydronephrosis Beckman is in place for strict I&Os Monitor urine output and electrolytes along with creatinine Diuretics hydrochlorothiazide and lisinopril on hold Renal function continues to improve 05/05 creatinine 0.9 (4) Hypernatremia: Code(s): E87.0 - Hyperosmolality and hypernatremia Status: Acute Assessment and Plan: Improving with hypotonic fluids This has resolved (5) Hypoxia: Code(s): R09.02 - Hypoxemia Status: Acute Assessment and Plan: Likely secondary to atelectasis and COVID-19 Add incentive spirometry and up in chair when possible His procalcitonin was normal but he is already on Zosyn for his abdominal sepsis which would cover for any pneumonia He is on room air currently Off isolation for COVID (6) Pneumonia due to COVID-19 virus: Onset Date: ~03/2021 Code(s): U07.1 - COVID-19; J12.82 - Pneumonia due to coronavirus disease 2018 Status: Acute Assessment and Plan: Pulmonary infiltrates consistent with COVID pneumonia Patient was not candidate for remdesivir due to renal failure and also out of window next continue Decadron (7) Hypertension: Onset Date: Unknown
[2021-05-06 11:31] LABS: EDCOVIDSCREEN Negative (Negative)
[2021-05-06 12:15] VITALS: BP 99/53; PULSE 106; RESP 18; TEMP 36.6; O2SAT 98
[2021-05-06 12:39] LABS: Glucose Point of Care 127 mg/dl (65-105)
[2021-05-06 18:05] LABS: Glucose Point of Care 109 mg/dl (65-105)
== END 2021-05-06 17:45 | DRG 981 ==
LOC: ANHED 11:06 → ANH3MEDSUR 15:10 → ANH2MED 05-06 10:12 → ANH3MEDSUR 05-09 09:18 → ANHICU 05-09 09:18
PROVIDERS: Internal Medicine; Internal Medicine Nephrology; Physician Assistant; Surgery; Admitting Provider Internal Medicine; Emergency Provider Emergency Medicine; Visit Provider Internal Medicine
PROC: 0DQ60ZZ Repair Stomach, Open Approach (ICD-10-PCS; CPT 49000; principal; 2021-04-27 12:30)
DX: N17.0 Acute kidney failure with tubular necrosis (principal); U07.1 COVID-19; J96.01 Acute respiratory failure with hypoxia; J12.82 Pneumonia due to coronavirus disease 2019; K25.5 Chronic or unspecified gastric ulcer with perforation; K65.9 Peritonitis, unspecified; E87.0 Hyperosmolality and hypernatremia; K56.0 Paralytic ileus; D68.9 Coagulation defect, unspecified; B37.89 Other sites of candidiasis; E46 Unspecified protein-calorie malnutrition; M19.90 Unspecified osteoarthritis, unspecified site; I10 Essential (primary) hypertension; R73.03 Prediabetes; G25.81 Restless legs syndrome; F17.210 Nicotine dependence, cigarettes, uncomplicated; Z90.49 Acquired absence of other specified parts of digestive tract; E86.0 Dehydration; R31.9 Hematuria, unspecified; I95.9 Hypotension, unspecified; R73.9 Hyperglycemia, unspecified; K56.41 Fecal impaction; E83.39 Other disorders of phosphorus metabolism; Z68.21 Body mass index [BMI] 21.0-21.9, adult
CPT/HCPCS: 36415; 36430; 71045; 74018; 74019; 74176; 74240; 80048; 80053; 80076; 81001; 82948; 83735; 83880; 83935; 84100; 84134; 84145; 84295; 84300; 84443; 84460; 84466; 84478; 85025; 85027; 85055; 85380; 85384; 85610; 85730; 86140; 86850; 86900; 86901; 87070; 87075; 87106; 87205; 87324; 87338; 87426; 92610; 93005; 96360; 96361; 96365; 96366; 96372; 97110; 97162; 97165; 97168; 97530; 97535; 99232; 99285; A9270; C9113; C9803; G0378; J1100; J1170; J1450; J1650; J2370; J2405; J2543; J2704; J3010; J3430; J3480; J7030; J7050; J7070; J7120; P9017

== ENCOUNTER 2021-06-29 08:57 | Outpatient (CLI) | payer MEDICARE, OTHER, SELFPAY ==
[2021-06-29 09:30] LABS: Basophils Percent Auto 0.5 % (0.2-1.2); Eosinophils Absolute Auto 0.2 K/mm3 (0-0.3); Eosinophils Percent Auto 4.2 % (0-4.4); Hematocrit 36.7 % (42.0-52.0); Hemoglobin 12.3 g/dL (14.0-18.0); Immature Granulocyte Absolute 0.03 K/mm3 (0.00-0.031); Immature Granulocyte Percent A 0.5 % (0-0.5); Lymphocytes Absolute Auto 1.75 K/mm3 (0.9-3.2); Mean Corpuscular HGB Conc 33.5 g/dl (32-36); Mean Corpuscular Hemoglobin 28.4 pg (26-34); Mean Corpuscular Volume 84.8 fl (80-100); Mean Platelet Volume 8.8 fl (7.4-10.4); Monocytes Absolute Auto 0.5 K/mm3 (0.1-0.6); Monocytes Percent Auto 8.3 % (2.6-8.5); Neutrophils Absolute Auto 3.1 K/mm3 (1.3-6.7); Neutrophils Percent Auto 55.5 % (45.5-73.1); Platelet Count Result 412 k/mm3 (150-375); Red Blood Count 4.33 M/mm3 (4.6-6.20); Red Cell Distribution Width 14.1 % (11.5-14.5); White Blood Count 5.7 K/mm3 (4.5-10.0)
== END 2021-06-29 08:58 | disposition home or self-care (01) ==
PROVIDERS: Visit Provider Surgery
DX: K25.5 Chronic or unspecified gastric ulcer with perforation (principal)
CPT/HCPCS: 36415; 85025

== ENCOUNTER 2021-07-05 00:50 | Day surgery (SDC) | payer MEDICARE, OTHER, SELFPAY ==
[2021-06-25 11:33] VITALS: BMI 21.2
[2021-07-05 11:49] VITALS: BP 174/75; PULSE 108; RESP 18; TEMP 36.5; O2SAT 98
[2021-07-05] MEDS: LACTATED RINGERS 1,000 ML 150 ML IV CONT (11:55)
--- NOTE | 2021-07-05 12:15 | WPDANESEPPF ---
Anes - Initial Pre Proc Eval Procedure: Operation Date: 07/05/21 13:00 Proposed Procedures p Esophagogastroduodenoscopy With Biopsy And Possible Polypectomy - Chase Cohen MD Date/Time: 07/05/21 12:15 Surgeon: Chase Cohen MD Pre Op Diagnosis: hx of ulcer Patient Data Age: 71 Gender: M Height: 1.71 m Weight: 58.5 kg Last Vital Signs Temp 36.5 C 07/05/21 11:49 Pulse 108 H 07/05/21 11:49 Resp 18 07/05/21 11:49 BP 174/75 H 07/05/21 11:49 Pulse Ox 98 07/05/21 11:49 Allergies Allergy/AdvReac Type Severity Reaction Status Date / Time No Known Allergies Allergy Verified 07/05/21 11:39 Home Medications Medication Instructions Recorded Confirmed Type ropinirole 0.5 mg PO HS 04/21/21 06/25/21 History acetaminophen 1,000 mg PO Q6H PRN #90 tablet 05/06/21 06/25/21 Rx aspirin 81 mg PO DAILY 06/25/21 06/25/21 History furosemide 20 mg PO DAILY 06/25/21 06/25/21 History lisinopril-hydrochlorothiazide 1 tablet PO DAILY 06/25/21 06/25/21 History loperamide 2 mg PO QID PRN 06/25/21 06/25/21 History meloxicam 15 mg PO DAILY 06/25/21 06/25/21 History mirtazapine 7.5 mg PO DAILY 06/25/21 06/25/21 History multivitamin with iron [Daily 1 tablet PO DAILY 06/25/21 06/25/21 History Multivitamin with Iron] pantoprazole 40 mg PO Q12H 06/25/21 06/25/21 History sucralfate 1,000 mg PO TID 06/25/21 06/25/21 History Patient hx anesthesia problems: none Family hx anesthesia problems: none Results Review: All pre-operative results and documents have been reviewed as part of the pre-operative evaluation. [facility] Past Medical History Medical History (Updated 06/21/21 @ 10:51 by Alida Polanco) Acute kidney injury (Unknown) Arthritis Debility, unspecified Diverticulitis Hypertension (Unknown) Malnutrition, calorie (~03/2021) Pneumonia due to COVID-19 virus (~03/2021) Pre-diabetes Restless legs syndrome Tobacco use Uncomplicated epigastric hernia Surgical History Surgical History H/O exploratory laparotomy Over-sewing of perforated gastric ulcer of the distal anterior body of the stomach with application of [place] type patch using a portion of falciform ligament 2. peritoneal washout with 3-4 L of by temperature normal saline 3. exploratory laparotomy History of partial colectomy Subtotal colectomy for what sounds like small-bowel obstruction due to adhesions. Family History Family History Father Hypertension Diabetes mellitus Social History Social History Social History: The patient lives in [place] with his daughter but is currently at a rehab facility. He retired from the [employer] after 23 years. He has smoked about 3 cigarettes a day for at least 40 years though he has not smoked since his recent hospitalization. Denies alcohol and illicit substance abuse. [id number]: Manjula Austin, daughter. Code status: Full code. Smoking packs per day: 0.5 Smoking cigarettes per day: 10.0 Years smoked: 20 Smoking pack-years: 10.00 Smoking status: Former smoker Tobacco type: cigarettes Smoking end date: 04/07/21 Alcohol intake: never Living arrangements: with family Spiritual care concerns: No Anes - Eval Final PreProcedure Day of Procedure 07/05/21 12:15 Patient weight: normal Heart: regular rate and rhythm Lungs: clear to auscultation and normal air movement Airway: Mallampati scale class II Neurological: alert and oriented Last oral intake: >/= 8 hours ASA classification: III Emergent: no Anesthetic plan: proceed Anesthesia type and monitoring: general GIVS Results Review: All pre-operative results and documents have been reviewed as part of the pre-operative evaluation. Informed Consent: The patient's anesthetic plan and its attendant risks and benefits were discussed with
--- NOTE | 2021-07-05 13:06 | WPDHPUPDATE1 ---
History and Physical Update Update Date/Time: 07/05/21 13:06 History and Physical has been reviewed, including an updated exam of the patient. There are changes in the patient's condition.Pt has stopped his Protonix and Sulcrafate for 4 -5 days to allow us to do an accurate Bx for H.Pylori. Risks, benefits, and alternatives have been discussed and questions answered. Patient agrees to proceed with procedure.
[2021-07-05] MEDS: BENZOCAINE (*SP) 60 ML SPRAY CAN (HURRICAINE) 1 SPRAY MUCOUS MEM (13:14)
[2021-07-05 13:36] VITALS: BP 103/48; PULSE 87; RESP 20; O2SAT 99
[2021-07-05 13:44] VITALS: BP 118/56; PULSE 89; RESP 17; O2SAT 100
[2021-07-05 13:54] VITALS: BP 151/72; PULSE 88; RESP 19; O2SAT 100
[2021-07-05 14:04] VITALS: BP 157/78; PULSE 92; RESP 25; O2SAT 100
== END 2021-07-05 14:28 | disposition home or self-care (01) ==
PROVIDERS: Visit Provider Surgery
PROC: 0DJ08ZZ Inspection of Upper Intestinal Tract, Via Natural or Artificial Opening Endoscopic (ICD-10-PCS; CPT 43235; principal; 2021-07-05 13:00)
DX: K25.5 Chronic or unspecified gastric ulcer with perforation (principal); M19.90 Unspecified osteoarthritis, unspecified site; I10 Essential (primary) hypertension; Z86.16 Personal history of COVID-19; Z87.891 Personal history of nicotine dependence; R73.03 Prediabetes; G25.81 Restless legs syndrome; Z79.82 Long term (current) use of aspirin; K46.9 Unspecified abdominal hernia without obstruction or gangrene; Z90.49 Acquired absence of other specified parts of digestive tract; K43.9 Ventral hernia without obstruction or gangrene
CPT/HCPCS: 43239; 87081; J2001; J2704; J7120